=== PATIENT | male | born 1955 | race Caucasian/White ===

== ENCOUNTER 2016-10-26 16:21 | Emergency (ER) | payer OTHER ==
[~2016-10-26] VITALS: Ht 172.7 cm; Wt 80.7 kg
[~2016-10-26 16:21] MED LIST: ADVAIR 500/501 E1 INH; ALBUTEROL2 MG/5 ML INH; ALPRAZOLAM0.5 M3 PO; ASPIRIN CHILDRE81 MG PO; AUGMENTIN 875875 MG PO; B-1100 MG PO; CARAFATE1 GM/10 ML PO; CIPRO500 MG PO; CORDROL20 MG PO; COZAAR100 MG PO; DELTASONE5 MG PO; HYCODAN,HYDROME10 ML PO; HYCODAN/HYDROMET5 ML PO; MATZIM LA240 MG PO; MUCINEX DM 30 M1 TE1 PO; PREDNISONE10 MG PO; ROBITUSSIN-AC480 ML PO; SINGULAIR10 M1 PO; SINGULAIR4 MG PO; VICODIN 5/500 505 MG PO; VICODIN ES 7501 TA1 PO; ZITHROMAX Z PA250 MG PO; ZITHROMAX500 MG PO
[2016-10-26 16:38] VITALS: BP 174/94
[2016-10-26 17:09] LABS: BASO # 0.1 10*3/uL (0.0-0.1); BASO % 1.2 % (0.0-1.0); EOS # 1.4 10*3/uL (0.0-0.4); EOS % 16.7 % (1.0-4.0); HEMOGLOBIN 14.4 g/dl (14.0-18.0); LYMPH # 1.2 10*3/uL (1.3-4.4); LYMPH % 14.1 % (27.0-41.0); MEAN CELL VOLUME 97.9 fl (80.0-94.0); MEAN CORPUSCULAR HGB 32.8 pg (27.0-31.0); MEAN CORPUSCULAR HGB CONC 33.5 g/dl (33.0-37.0); MEAN PLATELET VOLUME 9.5 fl (9.6-12.3); MONO # 0.9 10*3/uL (0.1-1.0); MONO % 10.6 % (3.0-9.0); NEUT # 4.8 10*3/uL (2.3-7.9); PLATELET COUNT AUTOMATED 237 10*3/uL (130-400); RED BLOOD COUNT 4.39 10*6/uL (4.50-5.90); RED CELL DISTRI WIDTH 13.7 % (0-14.5); WHITE BLOOD COUNT 8.4 10*3/uL (4.8-10.8)
[2016-10-26 17:25] LABS: ALBUMIN 3.7 gm/dl (3.1-4.5); ALKALINE PHOSPHATASE 73 U/L (45-117); BILIRUBIN, TOTAL 0.6 mg/dl (0.2-1.0); BUN 16 mg/dl (7-24); CARBON DIOXIDE 27 mmol/L (21-32); CHLORIDE 105 mmol/L (98-107); EST GLOM FILT AFRICAN AMERICAN > 60 ml/min; GLUCOSE 98 mg/dL (65-99); POTASSIUM 3.8 mmol/L (3.5-5.1); SGOT/AST 23 IU/L (3-35); SGPT/ALT 28 U/L (12-78); SODIUM 140 mmol/L (136-145); TOTAL PROTEIN 6.8 gm/dL (6.4-8.2)
[2016-10-26] MEDS ORDERED: DUONEB 3 MG/3 ML3 M1 INH (17:42)
[2016-10-26] MEDS ORDERED: PREDNISONE20 M1 PO (17:42)
[2016-10-26] MEDS ORDERED: VIBRAMYCIN100 MG PO (17:42)
== END 2016-10-26 18:06 | disposition home or self-care (01) ==
LOC: ED 16:21
PROVIDERS: Emergency Medicine
DX: J44.1 Chronic obstructive pulmonary disease with (acute) exacerbation (principal); Z88.6 Allergy status to analgesic agent; Z79.82 Long term (current) use of aspirin

== ENCOUNTER 2017-02-26 09:23 | Inpatient (IN) | payer OTHER ==
[~2017-02-26] VITALS: Ht 173 cm; Wt 81.0 kg
--- NOTE | ~2017-02-26 | WRIGHTHP ---
[place], [place] PATIENT HISTORY AND PHYSICAL EXAM NAME: DALI EVANS UNIT #: [id number] ROOM: 515 DOCTOR: YU GALDAMEZ MD BIRTHDATE: [birth year] DOS: 02/26/2017 HISTORY OF PRESENT ILLNESS: The patient is 61-year-old, very well known to us. The patient states that he has had a low grade fever, aches and pains in his joints. On Saturday ____ noticed he had blood in his urine. He drank a lot of water. On Saturday it seemed to be clearing a little bit, but the fever and the chills persisted, so he decided to come into the Emergency Room. He denies having any chest pains, palpitations, does not have any abdominal pain. His breathing is fairly stable. He denies having any nausea, any emesis. PAST MEDICAL HISTORY: Significant for: 1. Panacinar emphysema with chronic respiratory failure. 2. Avascular necrosis, status post bilateral knee replacement, with chronic pain. 3. Benign hypertension. MEDICATIONS: That he is on are Xanax 0.5 daily, aspirin 81 daily, diltiazem 120 daily, Singulair 10 daily, simvastatin 5 daily, [place] 7.5 q.i.d. p.r.n. SOCIAL HISTORY: Nonsmoker, does drink 4-5 beers daily. PHYSICAL EXAMINATION: GENERAL: He is awake and alert and oriented. VITAL SIGNS: Blood pressure is 142/91, pulse of 86, respirations 20, T-max is 99.0. LUNGS: Diminished breath sounds. No wheezes, rales, rhonchi heard. HEART: Regular. ABDOMEN: Obese, soft, nontender. EXTREMITIES: Without any edema. ASSESSMENT AND PLAN: 1. The patient who presents with hematuria, fever, elevated white cell count. CT scan showing inflammatory changes in the perinephric fat, possible early pyelo. The patient is on IV antibiotics and IV fluids. Cultures were ordered and pending. 2. Benign hypertension, controlled. 3. Chronic obstructive pulmonary disease, panacinar emphysema without any evidence of exacerbation. [place], [place] PATIENT HISTORY AND PHYSICAL EXAM NAME: DALI EVANS UNIT #: [id number] ROOM: [facility] DOCTOR: YU GALDAMEZ MDDATE: [birth year] YU GALDAMEZ MD CM:HISPHYS:PATIENT HISTORY AND PHYSICAL EXAMINATION 1 0 YU GALDAMEZ MD 02/27/17921 interface
--- NOTE | ~2017-02-26 | DS ---
[place], [place] DISCHARGE SUMMARY [id number] UNIT #: [id number] ROOM: 515 DOCTOR: YU GALDAMEZ MD BIRTHDATE: [birth year] DOS: 02/28/2017 DIAGNOSES: 1. Acute pyelonephritis. 2. Urine culture with Escherichia coli. 3. Benign hypertension. 4. Sepsis, resolved, with negative blood cultures. 5. Chronic obstructive pulmonary disease. 6. Avascular necrosis of bilateral hips with bilateral hip replacement and chronic pain. MEDICATIONS: He is on home medications. New prescriptions which are aspirin 81 daily, diltiazem 120 daily, Singulair 10 daily, DuoNeb q. 4 hours, simvastatin 5 daily, Xanax 0.5 daily p.r.n., [place] 7.5 q.i.d. and the new prescription us Cipro 500 mg twice a day for 5 days. HOSPITAL COURSE: The patient is 61-year-old, comes in with complaints of blood in his urine and abdominal pain and chills and rigor. The patient was admitted with sepsis. He was tachycardic, hypotensive, with an elevated white blood cell count. The patient was placed on IV fluids, IV antibiotics. Urine culture and blood cultures were sent. Urine culture shows E. coli, which is sensitive to floxins. Blood culture preliminary is negative. The patient is stable, has not had any further complaints. Again, CT shows pyelonephritis. No other pathology was noted. Clinically, the patient has improved and the white cell count has normalized, so the plan is to discharge him to home to follow up as an outpatient. YU GALDAMEZ MD CM:DISCHARG 0728 1007 YU GALDAMEZ MD 02/28/17 1008 interface
--- NOTE | ~2017-02-26 | PR ---
[place], [place] PROGRESS NOTE [id number] UNIT #: [id number] ROOM: 515 DOCTOR: YU GALDAMEZ MD BIRTHDATE: [birth year] DOS: SUBJECTIVE: The patient states that he feels much better. He does not have any new complaints of chest pains or palpitations. His breathing is pretty much at its baseline. OBJECTIVE: VITAL SIGNS: Blood pressure is 120/87, pulse of 90, respirations 17, temperature 98.1. LUNGS: Diminished breath sounds. No wheezes heard. HEART: Regular. ABDOMEN: Obese, soft, nontender. EXTREMITIES: Without any edema. ASSESSMENT AND PLAN: 1. Acute pyelonephritis with sepsis. The patient's urine culture and blood cultures are pending. The patient's white cell count has normalized. He does not have any fevers, so the sepsis is resolving; however, we will wait for the complete culture results before we decide on discharge planning. 2. Benign hypertension, controlled. 3. Chronic obstructive pulmonary disease without any exacerbation. Continue breathing treatments. YU GALDAMEZ MD CM:PNTRANS 0717 1052 YU GALDAMEZ MD 02/28/17 1053 interface
[~2017-02-26 09:23] MED LIST changes: +CARTIA XT120 MG PO; +DUONEB 3 MG/3 ML3 M1 INH; -MATZIM LA240 MG PO; +PREDNISONE20 M1 PO; +VIBRAMYCIN100 MG PO
[2017-02-26 09:24] VITALS: BP 142/96
[2017-02-26 10:01] LABS: HEMATOCRIT 42.3 % (42.0-52.0); HEMOGLOBIN 14.4 g/dl (14.0-18.0); MEAN PLATELET VOLUME 9.3 fl (9.6-12.3); PLATELET COUNT AUTOMATED 248 10*3/uL (130-400); RED BLOOD COUNT 4.36 10*6/uL (4.50-5.90); RED CELL DISTRI WIDTH 13.4 % (0-14.5); WHITE BLOOD COUNT 20.1 10*3/uL (4.8-10.8)
[2017-02-26 10:13] LABS: ACT PARTIAL THROMBO TIME 28.7 SECONDS (19.5-32.1); INTERNATIONAL NORM RATIO 0.9 (2.0-3.5)
[2017-02-26 10:13] LABS: BILIRUBIN 2+ (NEGATIVE); BLOOD 3+ (NEGATIVE); CLARITY TURBID (CLEAR); COLOR RED (YELLOW); GLUCOSE TRACE (NEGATIVE); KETONE 1+ (NEGATIVE); NITRITE POSITIVE (NEGATIVE); PH 6.5 (5.0-9.0)
[2017-02-26 10:18] LABS: ALBUMIN 3.6 gm/dl (3.1-4.5); ALKALINE PHOSPHATASE 75 U/L (45-117); BUN 11 mg/dl (7-24); CHLORIDE 98 mmol/L (98-107); CREATININE 1.01 mg/dL (0.70-1.30); LIPASE 63 U/L (73-393); SGOT/AST 14 IU/L (3-35); SGPT/ALT 26 U/L (12-78); SODIUM 133 mmol/L (136-145); TOTAL PROTEIN 7.8 gm/dL (6.4-8.2)
[2017-02-26 10:19] VITALS: BP 140/82
[2017-02-26 10:20] LABS: PLATELET SUFFICIENCY NORMAL (NORMAL); TOTAL CELLS COUNTED 100 #CELLS
[2017-02-26 10:22] LABS: TROPONIN I < 0.015 ng/ml (<0.045)
[2017-02-26 10:33] LABS: LEUKO ESTERASE 3+ (NEGATIVE)
[2017-02-26 10:37] LABS: BACTERIA 2+; RBC TNTC rbc/hpf (0-2); WBC TNTC wbc/hpf (0-5)
[2017-02-26 11:01] VITALS: BP 134/86
--- NOTE | 2017-02-26 11:57 | NUR ---
PT HAD INC OF BM IN BED. DIARRHEA. PT REPORTS HE HAS BEEN HAVING THIS. PT CLEANED UP AND NEW, CLEAN DRY LINENS AND GOWN GIVEN.
[2017-02-26 12:00] VITALS: BP 101/56
--- NOTE | 2017-02-26 12:36 | NUR ---
A 61, admitted to , under the services of YU Bryant MD with a diagnosis of UTI, SEPSIS. Chief complaint is HEMATURIA. Patient arrived via bed from ER. Monitor applied. Initial assessment completed. Vital signs taken and recorded. YU BRYANT MD notified of admission to the unit. Orders received. See assessment for past medical history, medications and allergies. Patient and/or family oriented to unit. [facility] visitation policy reviewed. Clothing/patient valuable form completed. EFE KAPOOR
[2017-02-26] MEDS ORDERED: SIMVASTATIN5 MG PO (12:41)
[2017-02-26] MEDS ORDERED: XANAX0.5 MG PO (12:42)
[2017-02-26] MEDS ORDERED: NORCO 7.5-3251 EACH PO (12:42)
[2017-02-26 16:00] VITALS: BP 155/76
--- NOTE | 2017-02-26 19:30 | NUR ---
ASSUMED CARE OF PT AT THIS TIME, RESPS EASY AND NONLABORED WITH NO S/S OF DISTRESS CALL LIGHT WITH IN REACH
[2017-02-26 20:00] VITALS: BP 135/86
[2017-02-27] VITALS: BP 115/79
--- NOTE | 2017-02-27 07:30 | NUR ---
ASSUMED CARE OF PT AT THIS TIME, RESPS EASY AND NONLABORED WITH NO S/S OF DISTRESS CALL LIGHT WITH IN REACH
[2017-02-27 07:40] LABS: BASO # 0.1 10*3/uL (0.0-0.1); BASO % 0.5 % (0.0-1.0); EOS # 0.6 10*3/uL (0.0-0.4); EOS % 5.3 % (1.0-4.0); HEMATOCRIT 36.5 % (42.0-52.0); LYMPH # 0.7 10*3/uL (1.3-4.4); LYMPH % 6.4 % (27.0-41.0); MEAN CELL VOLUME 99.5 fl (80.0-94.0); MEAN CORPUSCULAR HGB CONC 33.2 g/dl (33.0-37.0); MEAN PLATELET VOLUME 9.9 fl (9.6-12.3); MONO # 1.2 10*3/uL (0.1-1.0); MONO % 11.8 % (3.0-9.0); NEUT # 7.9 10*3/uL (2.3-7.9); NEUT % 75.5 % (47.0-73.0); PLATELET COUNT AUTOMATED 216 10*3/uL (130-400); RED BLOOD COUNT 3.67 10*6/uL (4.50-5.90); RED CELL DISTRI WIDTH 13.3 % (0-14.5); WHITE BLOOD COUNT 10.5 10*3/uL (4.8-10.8)
[2017-02-27 07:51] LABS: HEMOGLOBIN 12.1 g/dl (14.0-18.0)
[2017-02-27 08:00] VITALS: BP 142/91
--- NOTE | 2017-02-27 08:00 | NUR ---
[employer] Booking Clerk in to talk to patient. Patient states lives at HOME with HIS . There are 0 steps in the home. Physician: DR GALDAMEZ Pharmacy: [facility] [place] Home health services: 1 Patient's level of ADLs: INDEPENDENT Patient has working utilities: YES DME: NONE Follow-up physician's appointment after d/c: PREFERS TO MAKE HIS OWN APPT Does patient want to access PORTAL?: Discharge plan HOME. WESTON LUDWIG
[2017-02-27 08:15] LABS: BUN 7 mg/dl (7-24); CHLORIDE 106 mmol/L (98-107); CREATININE 0.66 mg/dL (0.70-1.30); POTASSIUM 4.1 mmol/L (3.5-5.1); SODIUM 140 mmol/L (136-145)
[2017-02-27 12:00] VITALS: BP 140/72
[2017-02-27 16:00] VITALS: BP 136/74
[2017-02-27 20:00] VITALS: BP 137/83
[2017-02-28] VITALS: BP 120/87
--- NOTE | 2017-02-28 07:00 | NUR ---
PATIENT SLEPT T/O SHIFT WITH NO VOICED COMPLAINTS. RESTING QUIETLY IN BED, NO SXS OF DISTRESS. FLUIDS MAINTAINED PER ORDER. CALL LIGHT IS IN REACH.
[2017-02-28] MEDS ORDERED: CIPRO500 MG PO (07:26)
[2017-02-28 08:00] VITALS: BP 148/83
--- NOTE | 2017-02-28 08:38 | NUR ---
Discharge instructions reviewed with patient. Patient receptive and verbalizes understanding. Follow-up care arranged. Written instructions given to patient. PATIENT FINISHING LAST DOSE OF IV CIPRO PRIOR TO DISCHARGE HOME, SEE SHIFT ASSESSMENT AND VS'S. MECHE CUNHA
--- NOTE | 2017-02-28 10:16 | NUR ---
IV CIPRO COMPLETE; PATIENT PHONING FOR RIDE HOME.
--- NOTE | 2017-02-28 10:51 | NUR ---
PATIENT DISCHARGED TO FRONT LOBBY, AMBULATORY, FOR TRANSPORT HOME BY PRIVATE VEHICLE WITH FAMILY MEMBER.
--- NOTE | 2017-03-06 15:03 | NUR ---
LORA RECEIVED FROM [facility] ROOPA PLUNKETT ([id number] EXT. [id number]). ROOPA IS TRYING TO DO OUTREACH SERVICES BUT [employer]ING SNOT HAVE A GOOD PHONE NUMBER FOR PT. MARISA RETURNED CALL AND GAVE ROOPA UPDATED PHONE FOR PT.
== END 2017-02-28 10:49 | disposition home or self-care (01) | DRG 872 ==
LOC: ED 09:23 → 5E 11:58 → EDHOLD 11:58 → 5E 12:12
PROVIDERS: Emergency Medicine; ADMIT Internal Medicine
DX: A41.9 Sepsis, unspecified organism (principal); J96.10 Chronic respiratory failure, unspecified whether with hypoxia or hypercapnia; N10 Acute pyelonephritis; J43.1 Panlobular emphysema; B96.20 Unspecified Escherichia coli [E. coli] as the cause of diseases classified elsewhere; I10 Essential (primary) hypertension; G89.29 Other chronic pain; Z96.643 Presence of artificial hip joint, bilateral; Z79.82 Long term (current) use of aspirin; Z88.5 Allergy status to narcotic agent; Z87.01 Personal history of pneumonia (recurrent); Z82.49 Family history of ischemic heart disease and other diseases of the circulatory system; Z83.3 Family history of diabetes mellitus; Z80.9 Family history of malignant neoplasm, unspecified

== ENCOUNTER 2018-01-30 09:57 | Inpatient (IN) | payer OTHER ==
[~2018-01-30] VITALS: Ht 172.7 cm; Wt 85.5 kg
--- NOTE | ~2018-01-30 | PR ---
[place], [place] PROGRESS NOTE NAME: DALI EVANS UNIT #: [id number] ROOM: 401 DOCTOR: THEA URIOSTEGUI MD,JAMARI BIRTHDATE: [birth year] DOS: 02/02/2018 SUBJECTIVE: The patient was still noted with severe cough, which remains nonproductive with excessive chest congestion, shortness breath, wheezing was reported as seen with the chest tightness. OBJECTIVE: VITAL SIGNS: Normal temperature, respiratory rate 16, heart rate of 95, blood pressure 132/92, pulse ox saturation on room air 91% saturation at rest. HEENT: Head was atraumatic. Eyes nonicterus. NECK: Supple. CARDIOVASCULAR: S1, S2 audible. LUNGS: The patient noted diffuse expiratory wheezing without changes. ABDOMEN: Soft, nontender, bowel sounds present. EXTREMITIES: No acute edema. IMPRESSION: The patient with stable respiratory status noted at the present time with ongoing acute exacerbation of chronic obstructive pulmonary disease with bronchitis, coughing and wheezing. PLAN OF TREATMENT: Continue current dose of steroids, bronchodilators, oxygen supplementation. The patient was planned for a therapeutic bronchoscopy done tomorrow morning, n.p.o. past midnight status will be achieved today. JAMARI SIDHU MD CM:PNTRANS 1534 49 JAMARI URIOSTEGUI MD 02/02/181950 interface
--- NOTE | ~2018-01-30 | PROC NOTE ---
[place], [place] PROCEDURE NOTE NAME: DALI EVANS UNIT #: [id number] ROOM: 401 DOCTOR: THEA URIOSTEGUI MD,JAMARI BIRTHDATE: [birth year] DOS: 02/03/2018 PROCEDURE: Bronchoscopy. PREOPERATIVE DIAGNOSIS: The patient with persistent severe cough with wheezing ongoing maximum medical therapy. POSTOPERATIVE DIAGNOSIS: The patient with persistent severe cough with wheezing ongoing maximum medical therapy. Removal of large mucus plug patient endobronchial tree bilaterally. There were no endobronchial obstructive lesions. Findings of acute tracheobronchitis. PROCEDURE DESCRIPTION: Informed consent obtained for the patient. The patient brought to the OR and placed in supine position. Conscious sedation administered by the Anesthesia Department. After that, DVT from the bronchus one to the airway into laryngeal area. Epiglottis and vocal cords were seen. Vocal cord noted yellowish in color moving symmetrical movement. Bronchoscope advanced vocal cord and tracheal lumen noted with moderate amount of very thick mucus secretion with some purulent secretions suctioned out to the josseline level. Acute inflammatory changes in the tracheal mucosa was noted. The josseline noted sharp. The right upper, right middle, right lower, left upper, lingular lobe bronchi were all noted impacted with thick plugs of the mucosa. The patient with some purulent secretions, suctioned out with the help of normal saline wash and sent for cultures. The bronchial washing for the patient was taken and sent for all the cultures. Postoperative finding was discussed. The patient after recovered the effects of acute sedation. No other change in treatment at this time will be necessary. JAMARI SIDHU MD CM:PROCNOTE:PROCEDURE NOTE 1106 1730 JAMARI URIOSTEGUI MD
--- NOTE | ~2018-01-30 | PR ---
[place], [place] PROGRESS NOTE NAME: DALI EVANS UNIT #: [id number] ROOM: 401 DOCTOR: THEA URIOSTEGUI MD,JAMARI BIRTHDATE: [birth year] DOS: 02/05/2018 PULMONARY PROGRESS NOTE SUBJECTIVE: The patient noted much further improvement in the respiratory symptoms and almost complete resolution of cough, shortness breath and wheezing was also resolving. Denies symptoms of chest pain. Slept well last night. OBJECTIVE: VITAL SIGNS: Normal temperature, respiratory rate 16, heart rate of 82, blood pressure 150/94. Pulse oxygen saturation recorded on room air as 92% saturation. HEENT: Head was atraumatic. Eyes nonicterus. NECK: Supple. CARDIOVASCULAR: S1 and S2 audible. LUNGS: Without any wheezing or crackles at the present time. Breath sounds are noted mildly decreased bilaterally. ABDOMEN: Soft, nontender. Bowel sounds present. EXTREMITIES: No acute edema. IMPRESSION: Resolution of acute tracheobronchitis, markedly symptom-free after bronchoscopy. The culture of bronchial washing final results noted normal jose ramon. PLAN OF MANAGEMENT: No changes in the plan of care. Continuation of current therapy at this time without any changes. All other supportive plan of treatment and care. Discharge planning per primary care physician. JAMARI SIDHU MD CM:PNTRANS 1249 1515 JAMARI URIOSTEGUI MD 02/05/18 1515 interface
--- NOTE | ~2018-01-30 | PR ---
[place], [place] PROGRESS NOTE NAME: DALI EVANS UNIT #: [id number] ROOM: 401 DOCTOR: CARLOS DICKSON MD BIRTHDATE: [birth year] DOS: 02/01/2018 SUBJECTIVE: The patient's breathing has slightly improved, but he is still congested in his chest. PHYSICAL EXAMINATION: VITAL SIGNS: Blood pressure 156/86, heart rate of 89 beats per minute, breathing 20 times per minute, temperature 98 degrees Fahrenheit. GENERAL APPEARANCE: The patient is alert and oriented x 3, in no visible distress. HEENT AND NECK: Exam within normal limits. CARDIOVASCULAR SYSTEM: Heart rate is regular in rate and rhythm. S1 and S2 normally audible. LUNGS: Clear to auscultation. Lungs show expiratory wheezing all over and rhonchi. ABDOMEN: Soft, nontender. No obvious organomegaly. Bowel sounds are present. EXTREMITIES: Without significant cyanosis or edema. IMPRESSION: 1. Acute exacerbation of severe underlying chronic obstructive pulmonary disease with acute over chronic respiratory failure, being treated with corticosteroids, bronchodilators, oxygen and antibiotics and sputum cultures are pending. The patient has been scheduled for a bronchoscopy by Dr. Umana on Saturday. 2. Benign essential hypertension, treated and controlled. 3. History of bronchial asthma. 4. History of chronic pains controlled and treated and the patient functions are better with Vicodin. CARLOS DICKSON MD CM:PNTRANS 1814 5 CARLOS DICKSON MD 02/02/18 07 interface
--- NOTE | ~2018-01-30 | PR ---
[place], [place] PROGRESS NOTE NAME: DALI EVANS UNIT #: [id number] ROOM: 401 DOCTOR: CARLOS DICKSON MD BIRTHDATE: [birth year] DOS: SUBJECTIVE: The patient is breathing better after bronchoscopy and says Dr. Umana will allow him to leave tomorrow. PHYSICAL EXAMINATION: GENERAL APPEARANCE: The patient is alert and oriented x 3, in no visible distress. VITAL SIGNS: Blood pressure 152/87, heart rate of 96 beats per minute, afebrile, breathing 20 times per minute. HEENT AND NECK: Exam within normal limits. CARDIOVASCULAR SYSTEM: Heart rate is regular in rate and rhythm. S1 and S2 normally audible. LUNGS: Decreased breath sounds. Wheezing has improved on lung auscultation. ABDOMEN: Soft, nontender. No obvious organomegaly. Bowel sounds are present. EXTREMITIES: Without significant cyanosis or edema. IMPRESSION: 1. The patient with acute exacerbation of severe underlying chronic obstructive pulmonary disease, feeling improved after bronchoscopy. The wheezing has improved. Plan to discharge the patient in the morning if he continues to feel better. 2. Benign essential hypertension, treated and controlled, slightly elevated blood pressures. 3. History of bronchial asthma. 4. Chronic pain syndrome treated with Vicodin. CARLOS DICKSON MD CM:PNTRANS 57 1 CARLOS DICKSON MD 02/05/18111 interface
--- NOTE | ~2018-01-30 | EKG ---
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
--- NOTE | ~2018-01-30 | EKG ---
[place], [place] ELECTROCARDIOGRAM REPORT NAME: DALI EVANS UNIT #: [id number] ROOM: 401 DOCTOR: WALLY DRAFT REPORT BIRTHDATE: [birth year] [facility] Test Date: 2018-02-01 Test Time: 10:20:01 Pat Name: DALI EVANS Department: Room: 401 1 Gender: M Vamp Marker: Consuelo Foss : 1955 Requested By: JAMARI URIOSTEGUI Order Number: [id number] Reading MD: Jamari Umana MD Measurements Intervals [place] Rate: 91 P: 71 [place]: 155 QRS: 18 QRSD: 70 T: 29 QT: 336 QTc: 414 Interpretive Statements Sinus rhythm Atrial premature complex Borderline ST depression, anterolateral leads Compared to ECG 01/30/2018 10:27:54 Atrial premature complex(es) now present Electronically Signed On 02-04-2018 8:57:23 PDT by Jamari Umana MD CM:EKGRPT:ELECTROCARDIOGRAM REPORT 1020 0857 JAMARI LO DRAFT REPORT JAMARI URIOSTEGUI MD
--- NOTE | ~2018-01-30 | PR ---
[place], [place] PROGRESS NOTE [id number] #: [id number] ROOM: 401 DOCTOR: THEA URIOSTEGUI MD,JAMARI BIRTHDATE: [birth year] DOS: 02/04/2018 SUBJECTIVE: The patient has been noted with reduction of the cough and wheezing after therapeutic bronchoscopy done yesterday. Denies symptoms of chest pain. The coughing has been subsiding, but not completely resolved. Shortness of breath has improved. Wheezing was decreased. OBJECTIVE: VITAL SIGNS: Normal temperature, respiratory rate 20, heart rate 99, and blood pressure 149/82. Pulse oxygen saturation, 90% saturation noted on room air. HEENT: Chronic obesity. NECK: Supple. CARDIOVASCULAR: S1, S2 audible. LUNGS: Noted reduction in the wheezing. Occasional wheezing noted. There were no crackles. ABDOMEN: Soft, obese, and nontender. EXTREMITIES: No acute edema. LABORATORY DATA: Culture of the bronchial washing of the patient was noted with normal jose ramon initially. IMPRESSION: The patient who has been currently noted with acute exacerbation of chronic obstructive pulmonary disease, acute tracheobronchitis, reduction of the cough, wheezing and other symptoms post-bronchoscopy. PLAN OF TREATMENT: No changes in the plan of management at this time will be needed. Usual care. Other additional treatment changes will be done for the patient based on the progression of the illness. The patient does not wish to be discharged today and would like to wait until tomorrow. JAMARI SIDHU MD CM:PNTRANS 1157 1533 JAMARI URIOSTEGUI MD 02/04/18 1534 interface
--- NOTE | ~2018-01-30 | DS ---
[place], [place] DISCHARGE SUMMARY NAME: DALI EVANS UNIT #: [id number] ROOM: 401 DOCTOR: CARLOS DICKSON MD BIRTHDATE: [birth year] DOS: 02/05/2018 DISCHARGE DIAGNOSES: 1. Acute exacerbation of chronic obstructive pulmonary disease with acute over chronic respiratory failure. 2. The patient is status post bronchoscopy. 3. Benign essential hypertension. 4. Bronchial asthma. 5. Chronic pain syndrome. 6. Advanced chronic obstructive pulmonary disease. 7. Bilateral hip replacement. 8. Hyperlipidemia. HOSPITAL COURSE: The patient with advanced COPD, presented with acute exacerbation of COPD with acute over chronic respiratory failure and was treated with antibiotics, corticosteroids, on oxygen, and finally taken for a bronchoscopy after which his breathing improved significantly. The wheezing has resolved and he is breathing much better. The patient had severe dyspnea on exertion, which has also improved. The patient will be discharged to home today on antibiotics and bronchodilators and follow up with his PCP, Dr. Salvador within a week. Benign essential hypertension treated and controlled. Sputum culture results were negative. Blood cultures were negative. DISCHARGE MANAGEMENT: Augmentin 875 mg twice a day for a week, aspirin 81 mg a day, Medrol Dosepak, Cardizem-CD 120 mg a day, Vicodin p.r.n., follow up at the office with Dr. Salvador within a week. CARLOS DICKSON MD CM:CHAY 1106 20 CARLOS DICKSON MD 02/05/18 1121 interface
--- NOTE | ~2018-01-30 | PR ---
[place], [place] PROGRESS NOTE NAME: DALI EVANS UNIT #: [id number] ROOM: 401 DOCTOR: JAMARI SHEPHERD MD BIRTHDATE: [birth year] DOS: 02/03/2018 SUBJECTIVE: The patient remains in the hospital. The patient noted persistent severe coughing, wheezing, and shortness of breath unchanged over the last 48 hours. He has not been noted symptoms of headache or diplopia. Denies symptoms of nausea, vomiting, diarrhea, abdominal pain, hematemesis, melena, or hematochezia. Symptoms edema or pain of the lower extremity. The culture of the sputum reported normal, bacterial jose ramon. The patient is currently n.p.o. possibly bronchoscopy done today. Remaining review of the patient is noted all negative. OBJECTIVE: VITAL SIGNS: Normal temperature, respiratory rate 18, heart rate of 82, blood pressure 151/90 earlier. The pulse oxygen saturation patient on room air 96% saturation. HEENT: Head was atraumatic. Eyes nonicterus. NECK: Supple. CARDIOVASCULAR: S1, S2 audible. LUNGS: The patient was noted with expiratory wheezing remains persistent moderately. ABDOMEN: Soft and obese. EXTREMITIES: Without edema. MUSCULOSKELETAL: No acute deformities. SKIN: Visible skin lesions or rashes and Cranial nerves 2-12 intact. LABORATORY DATA: Culture of the sputum for the patient noted normal jose ramon. IMPRESSION: 1. Ongoing severe exacerbation of chronic obstructive with severe nonproductive cough and other symptoms, not resolving with current maximal medical therapy. 2. The patient with chronic moderate obesity. PLAN OF MANAGEMENT: The patient will be continued on current plan of management previously with all the noninvasive therapy and treatment plan of care. Proceed with fiberoptic bronchoscopy as planned. Any treatment change the patient necessary after bronchoscopy will be ordered accordingly. Usual care, other therapies. [place], [place] PROGRESS NOTE NAME: DALI EVANS UNIT #: [id number] ROOM: 401 DOCTOR: JAMARI SHEPHERD MD BIRTHDATE: [birth year] JAMARI SIDHU MD CM:PNTRANS 1104 1551 JAMARI URIOSTEGUI MD 02/03/18 1552 interface
--- NOTE | ~2018-01-30 | PR ---
[place], [place] PROGRESS NOTE NAME: DALI EVANS UNIT #: [id number] ROOM: 401 DOCTOR: CARLOS DICKSON MD BIRTHDATE: [birth year] DOS: 02/03/2018 SUBJECTIVE: The patient's breathing is improving slowly and he is going for bronchoscopy today by Dr. Umana. OBJECTIVE: VITAL SIGNS: Blood pressure 151/85, heart rate 100 beats per minute, breathing 20 times per minute, temperature 98.1 degrees Fahrenheit. GENERAL APPEARANCE: The patient is alert and oriented x 3, in no visible distress. HEENT AND NECK: Exam within normal limits. CARDIOVASCULAR SYSTEM: Heart rate is regular in rate and rhythm. S1 and S2 normally audible. LUNGS: Decreased breath sounds and expiratory wheezing all over. ABDOMEN: Soft, nontender. No obvious organomegaly. Bowel sounds are present. EXTREMITIES: Without significant cyanosis or edema. IMPRESSION: 1. The patient with acute exacerbation of severe underlying chronic obstructive pulmonary disease with acute over chronic respiratory failure, going for bronchoscopy today. The patient has dyspnea with slightest exertion. 2. Benign essential hypertension, treated and controlled. 3. History of bronchial asthma. 4. History of chronic pain, controlled and treated with Vicodin. CARLOS DICKSON MD CM:PNTRANS 1331 CARLOS DICKSON MD 02/03/18 2305 interface
--- NOTE | ~2018-01-30 | WRIGHTHP ---
[place], [place] PATIENT HISTORY AND PHYSICAL EXAM NAME: DALI EAVNS [facility] #: [id number] UNIT #: [id number] ROOM: 401 DOCTOR: CARLOS DICKSON MD BIRTHDATE: [birth year] DOS: 01/30/2018 HISTORY OF PRESENT ILLNESS: The patient is a 62-year-old gentleman with a past medical history of: 1. Advanced COPD. 2. Benign essential hypertension. 3. Bilateral hip replacement. 4. Mixed hyperlipidemia. The patient presented to the Emergency Department with worsening of shortness of breath, cough, purulent sputum and wheezing. The patient was diagnosed as having acute exacerbation of COPD and recommended admission and further management. After admission, the patient is still short of breath and has significant cough. No complaints of chest pain, dizziness, fainting episodes. No other GI or urinary symptoms. ALLERGIES: Known allergies to MORPHINE. REVIEW OF SYSTEMS: RESPIRATORY: Chronic shortness of breath and cough. GASTROINTESTINAL: No nausea, vomiting, diarrhea or constipation. CARDIOVASCULAR: No chest pains or palpitations. PHYSICAL EXAMINATION: GENERAL: Alert and oriented x 3, somewhat short of breath.in no distress. VITAL SIGNS: Blood pressure 146/84, afebrile, heart rate of 107 beats per minute, temperature 98 degrees. HEENT AND NECK: Extraocular movements are intact. Sclerae are anicteric. Oral mucosa is moist and clean. No obvious facial weakness. Neck is supple without any lymphadenopathy. No thyromegaly. No JVD. No carotid arterial bruits. LUNGS: Decreased breath sounds all over, some expiratory wheezing and rhonchi which is generalized to the lungs. CARDIOVASCULAR SYSTEM: Heart rate is regular in rate and rhythm. S1 and S2 normally audible. No significant murmur or any other abnormal cardiac sounds. ABDOMEN: Soft, nontender. No obvious organomegaly. Bowel sounds are present. No obvious herniation. EXTREMITIES: Without significant cyanosis or edema. Warm to touch. CENTRAL NERVOUS SYSTEM: Alert and oriented x 3. Cranial nerves II-XII are intact. Speech is normal. The patient is able to move all extremities. Normal muscle strength. Deep tendon reflexes are equal on both sides. Plantars were downgoing. LABORATORY DATA: The patient's chest x-ray showed just COPD no infiltrates. Normal CBC, serum electrolytes. IMPRESSION AND PLAN: 1. Acute exacerbation of severe underlying chronic obstructive pulmonary disease with acute over chronic respiratory failure, to be treated with bronchodilators, oxygen, corticosteroids and get a sputum culture. I will also consult Dr. Umana who may consider doing a bronchoscopy to clear his airways [place], [place] PATIENT HISTORY AND PHYSICAL EXAM NAME: DALI EVANS UNIT #: [id number] ROOM: [facility] DOCTOR: CARLOS DICKSON MD BIRTHDATE: [birth year] because of extreme chronic lung disease with acute over chronic respiratory failure. 2. Benign essential hypertension, treated and controlled. The patient continued on diltiazem. DICTATION ENDS HERE CARLOS DICKSON MD CM:HISPHYS:PATIENT HISTORY AND PHYSICAL EXAMINATION [phone] CARLOS DICKSON MD 02/20/18 1047 interface
--- NOTE | ~2018-01-30 | CON ---
[place], [place] REPORT OF CONSULTATION [id number] #: [id number] ROOM: 401 DOCTOR: THEA URIOSTEGUI MDJAMARI BIRTHDATE: [birth year] DOS: 02/01/2018 PULMONARY CONSULTATION EVALUATION AND MANAGEMENT REASON FOR CONSULTATION: Consultation done for assessment of COPD, nonresolving respiratory symptoms. HISTORY OF PRESENT ILLNESS: This is a 62-year-old white male who has been known with history of advanced COPD. The patient has now been seen in my office for several years. He has been seen and managed by the primary care physician usually for the COPD. The patient came to the hospital. The patient has been noted with ongoing symptoms for about a month or so and been treated as an outpatient with 2 courses of antibiotics and steroids and did not respond to the treatment. He has been using nebulized bronchodilators frequently. The patient recommended hospitalization and currently managed patient for acute exacerbation of COPD reporting symptoms of severe cough. The patient has been noted intermittent nonproductive with shortness of breath occurring with uypy-cl-vazygntd exertion and persistent expiratory wheezing. There were no symptoms of chest pain, chest tightness was reported. REVIEW OF SYSTEMS: Remaining systems reviewed. CONSTITUTIONAL: Fatigue, or tiredness noted without any symptoms of fever or chills. EYES: Denies any burning, redness, or tenderness. EARS, NOSE, THROAT SYMPTOMS: Denies sore throat, hoarseness, otalgia, postnasal drainage or epistaxis. CARDIOVASCULAR: Denies anginal pain, edema, pain of the lower extremities. GASTROINTESTINAL: Dysphagia, nausea, vomiting, diarrhea, abdominal pain, hematemesis, melena, or hematochezia. GENITOURINARY: No dysuria, suprapubic pain, hematuria. MUSCULOSKELETAL: No acute joint pain, redness, or tenderness. SKIN: Denies lesions or rashes tenderness. CENTRAL NERVOUS SYSTEMS: no dizziness, headache, diplopia, syncopal episode. Remaining systems reviewed. They were noted all negative. PAST MEDICAL HISTORY: 1. Essential hypertension. 2. Severe chronic obstructive pulmonary disease. 3. History reported for bronchial asthma. The exact severity at this time was unknown to me. 4. History of rheumatic fever as a child. 5. Past history of pneumonia. PAST SURGICAL HISTORY: Noted for this patient on mechanical ventilation previously for the respiratory failure management. PAST SURGICAL 1. Bilateral hip replacement. 2. Inguinal hernia repair. 3. Therapeutic bronchoscopy that was done in 2002. [place], [place] REPORT OF CONSULTATION NAME: DALI EVANS UNIT #: [id number] ROOM: 401 DOCTOR: THEA URIOSTEGUI MD,JAMARI BIRTHDATE: [birth year] SOCIAL HISTORY: The patient is , has 2 children, lives at home. Tobacco use reported as a teenager 1.5 pack of cigarettes per day, discontinued approximately 20 years ago as per patient. FAMILY HISTORY: The patient's father at age of 5252 years old from unknown medical illnesses. Mother at 80 years of complication of congestive heart failure. CURRENT MEDICATIONS: Administered were noted, use of Cardizem, IV Solu-Medrol, DuoNeb, Rocephin, and aspirin. DRUG ALLERGIES: NOTED ALLERGY TO MORPHINE. PHYSICAL EXAMINATION: GENERAL: A 62-year-old male who has been noted currently awake and alert without acute distress. Height of 5 feet 8 inches, weight 280 pounds, BMI 28. VITAL SIGNS: Normal temperature, respirations 18-20, heart rate 96-114, blood pressure 143/98, 162/96. The pulse ox saturation on room air was 91% saturation. HEENT: Head was atraumatic, mild to moderate obesity. NECK: Supple. CARDIOVASCULAR: S1, S2 audible. LUNGS: Generally decreased breath sounds with diffuse expiratory wheezing. There were no crackles. ABDOMEN: Soft. Moderate obesity. Bowel sounds present without any tenderness. EXTREMITIES: The patient noted without any acute edema, clubbing or cyanosis. MUSCULOSKELETAL: Without acute deformities. CENTRAL NERVOUS SYSTEM: Cranial nerves 2-12 intact. VISIBLE SKIN: No lesions or rashes. LABORATORY DATA: On 01/30/2018, CBC for the patient was essentially noted as eosinophils are 9.5%, otherwise normal CBC. Lactic acid 1.8. The, PT, PTT were noted as normal. CMP of the patient noted with a normal BUN and creatinine. The blood culture was noted without any bacterial growth from 01/30/2018, the culture of the sputum preliminary was pending from this morning. Gram stain, moderate white blood cells, epithelial cells, moderate gram-positive cocci in pairs and clusters. Chest x-ray 1 view does not show any acute pulmonary infiltration, hyperinflation of the lung was noted. PT/PTT 01/30/2018 was normal. IMPRESSION: 1. The patient has been currently admitted to the hospital noted with progressive COPD and bronchial asthma combination, acute exacerbation, not responding to treatment. 2. 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 3. Failure to respond to treatment for the patient at home with the previous treatment, corticosteroids and antibiotic suggestive of mucous impaction major airway patient and/or resistant infection combination can be excluded. [place], [place] REPORT OF CONSULTATION NAME: DALI EVANS UNIT #: [id number] ROOM: 401 DOCTOR: THEA URIOSTEGUI MD,JAMARI BIRTHDATE: [birth year] 4. The patient with moderate obesity as well. 5. Past history of heavy nicotine use. PLAN OF MANAGEMENT: Continue current dose of Solu-Medrol, bronchodilators as ordered q.4 hours. Sputum for Gram stain culture was ordered with pending culture results. Therapeutic bronchoscopy was suggested with the patient. Risk and the benefits of the procedure and he is agreeable for that. In the meantime, other plan of care, therapy to be continued as well with usual treatment, other plan of management and care plan has already been made by Dr. Roe. Thanks for allowing me to participate in the care of this patient. JAMARI SIDHU MD CM:CONSTR:REPORT OF CONSULTATION 1358 02/01/18 2344 interface
[~2018-01-30 09:57] MED LIST changes: +NORCO 7.5-3251 EACH PO; +SIMVASTATIN5 MG PO; +XANAX0.5 MG PO
[2018-01-30 10:01] VITALS: BP 148/89
[2018-01-30 10:26] LABS: BASO # 0.1 10*3/uL (0.0-0.1); BASO % 1.2 % (0.0-1.0); EOS # 0.7 10*3/uL (0.0-0.4); EOS % 9.5 % (1.0-4.0); HEMATOCRIT 46.6 % (42.0-52.0); HEMOGLOBIN 15.4 g/dl (14.0-18.0); LYMPH # 1.7 10*3/uL (1.3-4.4); LYMPH % 21.9 % (27.0-41.0); MEAN CELL VOLUME 96.1 fl (80.0-94.0); MEAN CORPUSCULAR HGB 31.8 pg (27.0-31.0); MEAN PLATELET VOLUME 9.3 fl (9.6-12.3); MONO # 1.2 10*3/uL (0.1-1.0); NEUT % 51.4 % (47.0-73.0); PLATELET COUNT AUTOMATED 296 10*3/uL (130-400); RED BLOOD COUNT 4.85 10*6/uL (4.50-5.90); RED CELL DISTRI WIDTH 12.6 % (0-14.5); WHITE BLOOD COUNT 7.8 10*3/uL (4.8-10.8)
[2018-01-30 10:34] LABS: ACT PARTIAL THROMBO TIME 22.6 SECONDS (20.8-31.5); INTERNATIONAL NORM RATIO 0.9 (2.0-3.5)
[2018-01-30 10:45] LABS: ALKALINE PHOSPHATASE 70 U/L (45-117); BUN 16 mg/dl (7-24); CHLORIDE 108 mmol/L (98-107); CREATININE 1.06 mg/dL (0.70-1.30); LIPASE 81 U/L (73-393); POTASSIUM 3.9 mmol/L (3.5-5.1); SGOT/AST 15 IU/L (3-35); SGPT/ALT 23 U/L (12-78); SODIUM 141 mmol/L (136-145); TOTAL PROTEIN 7.1 gm/dL (6.4-8.2)
[2018-01-30 10:46] LABS: TROPONIN I < 0.015 ng/ml (<0.045)
[2018-01-30 11:49] VITALS: BP 150/98
[2018-01-30] MEDS ORDERED: SOLU-MEDRO40 MG/1 ML IV (12:56)
[2018-01-30 16:00] VITALS: BP 188/64
[2018-01-30 20:00] VITALS: BP 163/89
[2018-01-31] VITALS: BP 154/84
[2018-01-31 08:00] VITALS: BP 151/93
[2018-01-31 12:00] VITALS: BP 155/92; BP 161/93
[2018-01-31 16:00] VITALS: BP 146/84
[2018-01-31 20:00] VITALS: BP 144/79
[2018-02-01] VITALS: BP 162/96
[2018-02-01 08:00] VITALS: BP 142/75; BP 143/98
[2018-02-01 12:00] VITALS: BP 150/85
[2018-02-01 16:00] VITALS: BP 156/86
[2018-02-01 20:00] VITALS: BP 140/80
[2018-02-02] VITALS: BP 153/88
[2018-02-02 08:00] VITALS: BP 136/84
[2018-02-02 12:00] VITALS: BP 132/92
[2018-02-02 16:00] VITALS: BP 141/82
[2018-02-02 20:00] VITALS: BP 152/98
[2018-02-03] VITALS (9 sets, daily range): BP systolic 135–161; BP diastolic 85–101
[2018-02-04] VITALS: BP 147/87
[2018-02-04 08:00] VITALS: BP 150/90
[2018-02-04 11:31] VITALS: BP 149/82
[2018-02-04 16:00] VITALS: BP 152/87
[2018-02-04 16:10] LABS: ACID FAST SPEC PROCESSING Concentration (.)
[2018-02-04 20:00] VITALS: BP 141/94
[2018-02-05] VITALS: BP 130/76
[2018-02-05 08:00] VITALS: BP 150/94
[2018-02-05] MEDS ORDERED: AUGMENTIN 875-875 MG PO (11:00)
[2018-02-05] MEDS ORDERED: MEDROL DOSEPAK4 MG PO (11:00)
[2018-03-08] MEDS ORDERED: MUCUS RELIEF400 MG PO (13:03)
[2018-03-08] MEDS ORDERED: LOSARTAN POTAS100 M1 PO (13:29)
[2018-03-10] MEDS ORDERED: MEDROL DOSEPAK4 MG PO (10:16)
[2018-03-10] MEDS ORDERED: AUGMENTIN 875-875 MG PO (10:16)
[2018-03-14 11:04] LABS: ORGANISM ID, MOLD Final report (.); RESULT 1 Final Identification (.)
== END 2018-02-05 11:30 | disposition home or self-care (01) | DRG 189 ==
LOC: ED 09:57 → 4E 11:42 → EDHOLD 11:42 → 4E 12:19
PROVIDERS: Emergency Medicine; Internal Medicine Critical Care Medicine
PROC: 0BC58ZZ Extirpation of Matter from Right Middle Lobe Bronchus, Via Natural or Artificial Opening Endoscopic (ICD-10-PCS; principal; 2018-02-03)
PROC: 0BC68ZZ Extirpation of Matter from Right Lower Lobe Bronchus, Via Natural or Artificial Opening Endoscopic (ICD-10-PCS; principal; 2018-02-03)
PROC: 0BC48ZZ Extirpation of Matter from Right Upper Lobe Bronchus, Via Natural or Artificial Opening Endoscopic (ICD-10-PCS; principal; 2018-02-03)
PROC: 0BC18ZZ Extirpation of Matter from Trachea, Via Natural or Artificial Opening Endoscopic (ICD-10-PCS; principal; 2018-02-03)
PROC: 0BC38ZZ Extirpation of Matter from Right Main Bronchus, Via Natural or Artificial Opening Endoscopic (ICD-10-PCS; principal; 2018-02-03)
PROC: 0BC78ZZ Extirpation of Matter from Left Main Bronchus, Via Natural or Artificial Opening Endoscopic (ICD-10-PCS; principal; 2018-02-03)
PROC: 0BCB8ZZ Extirpation of Matter from Left Lower Lobe Bronchus, Via Natural or Artificial Opening Endoscopic (ICD-10-PCS; principal; 2018-02-03)
PROC: 0BC88ZZ Extirpation of Matter from Left Upper Lobe Bronchus, Via Natural or Artificial Opening Endoscopic (ICD-10-PCS; principal; 2018-02-03)
PROC: 0BC98ZZ Extirpation of Matter from Lingula Bronchus, Via Natural or Artificial Opening Endoscopic (ICD-10-PCS; principal; 2018-02-03)
DX: J96.20 Acute and chronic respiratory failure, unspecified whether with hypoxia or hypercapnia (principal); J44.1 Chronic obstructive pulmonary disease with (acute) exacerbation; T17.590A Other foreign object in bronchus causing asphyxiation, initial encounter; T17.490A Other foreign object in trachea causing asphyxiation, initial encounter; J44.0 Chronic obstructive pulmonary disease with (acute) lower respiratory infection; Z96.643 Presence of artificial hip joint, bilateral; E78.2 Mixed hyperlipidemia; J20.9 Acute bronchitis, unspecified; G89.4 Chronic pain syndrome; E66.01 Morbid (severe) obesity due to excess calories; E78.5 Hyperlipidemia, unspecified; X58.XXXA Exposure to other specified factors, initial encounter; Y93.89 Activity, other specified; Y92.89 Other specified places as the place of occurrence of the external cause; Y99.8 Other external cause status; Z68.28 Body mass index [BMI] 28.0-28.9, adult

== ENCOUNTER 2018-03-29 11:43 | Inpatient (IN) | payer OTHER ==
[~2018-03-29] VITALS: Ht 172.7 cm; Wt 77.2 kg
--- NOTE | ~2018-03-29 | PR ---
[place], [place] PROGRESS NOTE [id number] #: [id number] ROOM: 532 DOCTOR: YU GALDAMEZ MD BIRTHDATE: [birth year] DOS: SUBJECTIVE: The patient is doing better, but still pretty wheezy, and unable to cough up any mucus. OBJECTIVE: VITAL SIGNS: Blood pressure is 144/80, pulse of 84, respirations 16, and temperature 98.1. LUNGS: Diminished breath sounds, scattered wheezes, and rhonchi still heard. HEART: Regular. ABDOMEN: Obese, soft. EXTREMITIES: Without any edema. LABORATORY DATA: Echocardiogram showed normal LV function 65% with mild concentric LVH, no major valvular pathology was noted. Blood culture shows no bacterial growth. ASSESSMENT AND PLAN: 1. Acute exacerbation of chronic obstructive pulmonary disease, continues to have bronchospasm. We will increase the dose of the steroids; otherwise, he is on maximal treatment plan. The possibility is that he may have underlying MRSA, which could be causing his continued bronchospasm, cough, and pneumonia. 2. New areas of pneumonitis. We will repeat CT of the chest to see whether there is any clearing. 3. Benign hypertension, controlled. Tachycardia, improved after the increase in Cardizem. 4. Moderate to large sliding hernia without any signs of regurg. YU GALDAMEZ MD CM:PNTRANS [id number] YU GALDAMEZ MD 04/22/18 0854 interface
--- NOTE | ~2018-03-29 | PR ---
[place], [place] PROGRESS NOTE NAME: DALI EVANS UNIT #: [id number] ROOM: 532 DOCTOR: CARLOS DICKSON MD BIRTHDATE: [birth year] DOS: 04/05/2018 SUBJECTIVE: The patient finally breathing slightly better today. OBJECTIVE: VITAL SIGNS: Blood pressure 142/84, breathing 20 times per minute, afebrile, heart rate of 93 beats per minute. GENERAL APPEARANCE: The patient is alert and oriented x 3, in no visible distress. HEENT AND NECK: Exam within normal limits. CARDIOVASCULAR SYSTEM: Heart rate is regular in rate and rhythm. S1 and S2 normally audible. LUNGS: Decreased breath sounds all over and slight expiratory wheezing. ABDOMEN: Soft, nontender. No obvious organomegaly. Bowel sounds are present. EXTREMITIES: Without significant cyanosis or edema. IMPRESSION: 1. The patient with advanced endstage chronic obstructive pulmonary disease with exacerbation and acute over chronic respiratory failure with slight improvement in breathing and I am hoping I will be able to discharge the patient to home tomorrow. The patient is being treated with corticosteroids, oxygen, nebulizer treatments and antibiotic. 2. Benign essential hypertension with improved tachycardia with Cardizem. Blood pressures are controlled. 3. Bilateral lower lung pneumonia, improved and cleared with antibiotics. 4. Adult failure to thrive, generalized weakness. The patient is ambulating and has significant dyspnea with slightest exertion. CARLOS DICKSON MD CM:PNTRANS 23 [phone] CARLOS DICKSON MD 04/06/1828 interface
--- NOTE | ~2018-03-29 | WRIGHTHP ---
[place], [place] PATIENT HISTORY AND PHYSICAL EXAM NAME: DALI EVANS UNIT #: [id number] ROOM: 532 DOCTOR: YU GALDAMEZ MD BIRTHDATE: [birth year] DOS: 03/30/2018 HISTORY OF PRESENT ILLNESS: The patient is very well known to us. He was admitted to the hospital twice in the last one month, comes in with complaints of difficulty breathing and cough. Denied having any chest pains or palpitations, does not have any fever or chills, does not have any abdominal nausea, emesis. He underwent a bronchoscopy with bronchial lavage done exactly a month ago. At that time, sputum cultures did not grow anything. Since then, he went home and he continues to be sick. PAST MEDICAL HISTORY: Significant for; 1. COPD. 2. Benign hypertension. 3. Rheumatoid arthritis. 4. Bilateral hip replacement. 5. Avascular necrosis. 6. History of inguinal hernia repair. 7. History of diverticulitis. MEDICATIONS: He is on are aspirin 81, diltiazem 120, [place] 7.5, losartan 100, montelukast 10, simvastatin 5. SOCIAL HISTORY: Nonsmoker. Does drink 2-3 beers every day. PHYSICAL EXAMINATION: GENERAL: He is awake and alert. VITAL SIGNS: Blood pressure is 151/94, pulse of 103, respirations 20, temperature 97.8. LUNGS: Diminished breath sounds, scattered wheezes and rhonchi. HEART: Regular. ABDOMEN: Obese, soft, nontender. EXTREMITIES: Without any edema. ASSESSMENT AND PLAN: 1. Acute exacerbation of chronic obstructive pulmonary disease, on IV steroids. 2. Chest x-ray showing 3 areas of pneumonitis, most likely early pneumonia, on IV antibiotics. 3. Benign hypertension, controlled. 4. Chronic low back pain. Continue home meds. [place], [place] PATIENT HISTORY AND PHYSICAL EXAM NAME: DALI EVANS UNIT #: [id number] ROOM: 532 DOCTOR: YU GALDAMEZ MD BIRTHDATE: [birth year] YU GALDAMEZ MD CM:HISPHYS:PATIENT HISTORY AND PHYSICAL EXAMINATION 0910 [id number] YU GALDAMEZ MD 03/30/18 1009 interface
--- NOTE | ~2018-03-29 | PR ---
[place], [place] PROGRESS NOTE NAME: DALI EVANS UNIT #: [id number] ROOM: 532 DOCTOR: THEA URIOTSEGUI MD,JAMARI BIRTHDATE: [birth year] DOS: 04/10/2018 SUBJECTIVE: He has a bronchoscopy done yesterday with significant improvement in the resolution of the acute respiratory symptom was noted also denies symptoms of fever or chills. Denies symptoms of hemoptysis, fever or chills. OBJECTIVE: VITAL SIGNS: Normal temperature, respiratory rate 18, heart rate 87, blood pressure 145/93. The pulse oxygen saturation recorded as 90% on room air. HEAD, EYES, EARS, NOSE, AND THROAT: Examination shows head was atraumatic. Eyes nonicterus. NECK: Supple. CARDIOVASCULAR SYSTEM: S1, S2 is audible. LUNGS: Noted without any wheeze or crackle this morning. ABDOMEN: Soft, nontender. Bowel sounds present. EXTREMITIES: Without any acute edema. IMPRESSION: The patient with a stable respiratory status improvement reduction in respiratory symptom post-bronchoscopy, acute exacerbation of COPD. The culture of bronchial washings showed no bacterial growth, final results are pending. PLAN OF MANAGEMENT: The patient could be discharged home, oral medications tapering prednisone, antibiotics. Outpatient followup suggested. Outpatient assessment for management consultation with Interventional Radiology services for possible vertebroplasty of T8 compression vertebral bone. The assessment and management of discharge planning was discussed with Dr. Agustina Salvador. JAMARI SIDHU MD CM:PNTRANS [phone] JAMARI URIOSTEGUI MD 11/14/18 0752 interface
--- NOTE | ~2018-03-29 | PR ---
[place], [place] PROGRESS NOTE [id number] #: [id number] ROOM: 532 DOCTOR: CARLOS DICKSON MD BIRTHDATE: [birth year] DOS: 04/03/2018 SUBJECTIVE: The patient is breathing slightly better. OBJECTIVE: GENERAL APPEARANCE: The patient is alert and oriented x 3, in no visible distress. VITAL SIGNS: Blood pressure 141/87, afebrile, heart rate of 99 beats per minute, breathing normally. HEENT AND NECK: Exam within normal limits. CARDIOVASCULAR SYSTEM: Heart rate is regular in rate and rhythm. S1 and S2 normally audible. LUNGS: Decreased breath sounds and mild expiratory wheezing. ABDOMEN: Soft, nontender. No obvious organomegaly. Bowel sounds are present. EXTREMITIES: Without significant cyanosis or edema. IMPRESSION: 1. The patient with acute exacerbation of severe underlying chronic obstructive pulmonary disease with improvement in breathing with bronchodilators, antibiotics and corticosteroids. 2. Minimal right lower lobe nodular opacity, which is residual on CT scan of the chest. 3. Moderate size hiatal hernia. The patient treated with proton pump inhibitors. 4. Bilateral pneumonia, treated with antibiotics and improved. 5. Benign essential hypertension, treated and controlled. 6. Acute over chronic respiratory failure, improving with treatment. CARLOS DICKSON MD CM:PNTRANS [id number] CARLOS DICKSON MD 04/04/18 1536 interface
--- NOTE | ~2018-03-29 | PROC NOTE ---
[place], [place] PROCEDURE NOTE NAME: DALI EVANS UNIT #: [id number] ROOM: 532 DOCTOR: THEA URIOSTEGUI MD,JAMARI BIRTHDATE: [birth year] DOS: 04/09/2018 PROCEDURE: Bronchoscopy. PREOPERATIVE DIAGNOSES: Persistent severe coughing and wheezing with current acute pneumonia, with maximum medical therapy, no improvement noted further in the symptoms. POSTOPERATIVE DIAGNOSES: Evidence of severe impaction of the mucus, cleared endobronchial tree bilaterally without any evidence of endobronchial obstruction no endobronchial lesions. COMPLICATIONS: None. PROCEDURE DESCRIPTION: Informed consent obtained. The patient brought to the OR and placed in supine position. Conscious sedation administered by the Anesthesia Department. After achieving proper sedation, airway introduced into the mouth. Bronchoscope advanced to the airways into laryngeal area. Epiglottis and vocal cord seen. The bronchoscope advanced to the vocal cord into tracheal lumen was noted copious amount of very thick green color secretion mixture of the mucus and the pus. The bronchial washing was suctioned out to the josseline level. Right upper, right middle, right lower, left upper, lingula, and lower lobe bronchi were all examined. The patient noted similar secretions noted in the tracheal lumen with impaction of the mucus plug in the airways as well. The secretion suctioned out with the patient with upper normal saline wash and removed from the endobronchial tree. No endobronchial obstructive lesions noted. All the mucus impaction cleared with normal saline wash and sent for culture. Procedure well tolerated by the patient without difficulty. Postoperative findings were discussed with the patient's family members in detail. JAMARI SIDHU MD CM:PROCNOTE:PROCEDURE NOTE 1303 1928 CARLOS DICKSON MD and YU URIOSTEGUI MD
--- NOTE | ~2018-03-29 | PR ---
[place], [place] PROGRESS NOTE NAME: DALI EVANS UNIT #: [id number] ROOM: 532 DOCTOR: CARLOS DICKSON MD BIRTHDATE: [birth year] DOS: 04/06/2018 SUBJECTIVE: The patient is still quite short of breath and does not feel good enough to go home. OBJECTIVE: GENERAL APPEARANCE: The patient is alert and oriented x 3, in no visible distress. Generalized weakness. VITAL SIGNS: Blood pressure 152/92, heart rate of 100 beats per minute, breathing 20 times per minute, temperature 98 degrees Fahrenheit. HEENT AND NECK: Exam within normal limits. CARDIOVASCULAR SYSTEM: Heart rate is regular in rate and rhythm. S1 and S2 normally audible. LUNGS: Decreased breath sounds all over. ABDOMEN: Soft, nontender. No obvious organomegaly. Bowel sounds are present. EXTREMITIES: Without significant cyanosis or edema. IMPRESSION: 1. Advanced end-stage chronic obstructive pulmonary disease, with acute exacerbation. The patient is still quite short of breath. I will consult Dr. Umana, the rail car loader, who is back in town now, to help with the treatment. 2. Benign essential hypertension. Blood pressure is being monitored and treated. 3. Bilateral lower lobe pneumonia, cleared with antibiotics. 4. Advanced adult failure to thrive and generalized weakness and also dyspnea on exertion related to advanced chronic obstructive pulmonary disease, being treated with bronchodilators. CARLOS DICKSON MD CM:PNTRANS 51 1 CARLOS DICKSON MD 04/07/18 0120 interface
--- NOTE | ~2018-03-29 | EKG ---
[place], [place] ELECTROCARDIOGRAM REPORT NAME: DALI EVANS UNIT #: [id number] ROOM: 532 DOCTOR: WALLY DRAFT REPORT BIRTHDATE: [birth year] [facility] Test Date: 2018-03-29 Test Time: 12:22:03 Pat Name: DALI EVANS Department: Room: 532 Gender: M Field Marketing Specialist: Consuelo Foss : 1955 Requested By: NAM ESTEVEZ Order Number: [id number] Reading MD: Rupinder Cadet MD Measurements Intervals [place] Rate: 110 P: 70 MN: 156 QRS: 15 QRSD: 64 T: 45 QT: 350 QTc: 474 Interpretive Statements Sinus tachycardia Borderline low voltage, extremity leads Minimal ST depression, anterolateral leads Compared to ECG 03/08/2018 11:11:18 ST (T wave) deviation now present Electronically Signed On 03-31-2018 7:52:44 PST by Rupinder Cadet MD CM:EKGRPT:ELECTROCARDIOGRAM REPORT [id number] NAM ESTEVEZ EPIPHANY DRAFT REPORT NAM ESTEVEZ
--- NOTE | ~2018-03-29 | PR ---
[place], [place] PROGRESS NOTE [id number] UN[facility] #: [id number] ROOM: 532 DOCTOR: YU GALDAMEZ MD BIRTHDATE: [birth year] DOS: SUBJECTIVE: The patient is doing much better. He underwent a bronchoscopy. Bronch cultures have come back negative. He is breathing much better and is no longer coughing up greenish sputum. His cough is mostly white, minimal mucus. OBJECTIVE: VITAL SIGNS: Blood pressure is 136/77, pulse of 89, respirations 18, temperature 97.6. LUNGS: Clear. HEART: Regular. ABDOMEN: Obese, soft. EXTREMITIES: Without any edema. ASSESSMENT AND PLAN: 1. Acute exacerbation of chronic obstructive pulmonary disease, stable and improved. 2. Acute bronchitis, status post bronchoscopy with bronch cultures being negative. 3. Bilateral pneumonia, which is resolving. 4. Acute compression fracture of the thoracic spine and MRI will be ordered today, after that the patient can be discharged to home. YU GALDAMEZ MD CM:PNTRANS [phone] YU GALDAMEZ MD 04/11/18 0645 interface
--- NOTE | ~2018-03-29 | PR ---
[place], [place] PROGRESS NOTE NAME: DALI EVANS UNIT #: [id number] ROOM: 532 DOCTOR: YU GALDAMEZ MD BIRTHDATE: [birth year] DOS: SUBJECTIVE: The patient appears to be a lot more short of breath this morning. OBJECTIVE: VITAL SIGNS: Graphic trend shows a pressure of 129/87, pulse of 90, respirations 20, temperature 97.9. LUNGS: Diminished breath sounds, scattered wheezes and rhonchi heard. HEART: Regular. ABDOMEN: Obese, soft, nontender. EXTREMITIES: Without any edema. ASSESSMENT AND PLAN: 1. Acute exacerbation of chronic obstructive pulmonary disease with pretty significant exacerbation this morning. He is already on IV steroids and breathing treatments. We will add Pulmicort. 2. Pneumonia, recent CT scan showing evidence of multifocal pneumonia. The patient is on IV antibiotics. Since he is pretty short of breath this morning, go ahead and arrange for an ABG. 3. Benign hypertension, controlled. Check echocardiogram. YU GALDAMEZ MD CM:PNTRANS YU GALDAMEZ MD 03/31/18 0930 interface
--- NOTE | ~2018-03-29 | PR ---
[place], [place] PROGRESS NOTE NAME: DALI EVANS UNIT #: [id number] ROOM: 532 DOCTOR: JAMARI SHEPHERD MD BIRTHDATE: [birth year] DOS: 04/09/2018 SUBJECTIVE: The patient has been noted comfortable at this time, resting on the bed this morning of assessment. He is n.p.o. past midnight for bronchoscopy, still complaining of symptoms of chest pain remains unchanged in the mid thoracic area. Denies symptoms of fever or chills. Cough has been noted severe nonproductive. Shortness breath was noted somewhat decreased. Denies symptoms of hemoptysis. Denies any pain of the lower extremity or edema. Denies symptoms of nausea, vomiting, diarrhea, headache, or diplopia. Remaining systems were reviewed, they were noted all negative. OBJECTIVE: VITAL SIGNS: For the patient which has been recorded showed the temperature noted normal, respiratory rate 20, heart rate of 99, blood pressure 164/100-154/94. Pulse oxygen saturation recorded as 99% saturation on room air at rest. HEENT: Showed no acute change. NECK: Supple. CARDIOVASCULAR: S1, S2 is audible. LUNGS: Noted with generally decreased breath sounds with moderate expiratory wheezing, no crackles. ABDOMEN: Soft, obese, nontender. EXTREMITIES: Chronic obesity without any edema. MUSCULOSKELETAL: Without acute deformities. CENTRAL NERVOUS SYSTEM: Cranial nerves 2-12 intact. LABORATORY DATA: There were no labs done today. IMPRESSION: 1. The patient with ongoing acute exacerbation of chronic obstructive pulmonary disease. Acute bronchitis, not responding to the treatment with current acute pneumonia, treated with the antibiotics as vancomycin received, gram-negative coverage with meropenem. 2. The patient with moderate obesity. 3. Suspected obstructive sleep apnea disorder as well. 4. Acute compression fracture of the T8 with reported chest pain. PLAN OF TREATMENT: Continue the patient's current plan of management: Proceed with bronchoscopy. Any changes and modification treatment if necessary will be ordered after the bronchoscopy. Other usual care, plan of treatment and therapies. [place], [place] PROGRESS NOTE NAME: DALI EVANS UNIT #: [id number] ROOM: 532 DOCTOR: JAMARI SHEPHERD MD BIRTHDATE: [birth year] JAMARI SIDHU MD CM:PNTRANS [id number] JAMARI URIOSTEGUI MD 04/09/18 1501 interface
--- NOTE | ~2018-03-29 | CON ---
[place], [place] REPORT OF CONSULTATION NAME: DALI EVANS [facility] #: [id number] UNIT #: [id number] ROOM: 532 DOCTOR: THEA URIOSTEGUI MDJAMARI BIRTHDATE: [birth year] DOS: 04/07/2018 CONSULTATION REQUESTED BY: Dr. Agustina Salvador. REASON FOR CONSULTATION: Assess the patient for current symptoms of shortness of breath, exacerbation of chronic obstructive pulmonary disease and pneumonia. HISTORY OF PRESENT ILLNESS: This is a 62-year-old white male known to me with past history of chronic obstructive pulmonary disease, has been admitted to the hospital previously and was assessed by me. The patient had a therapeutic bronchoscopy done on one of the previous admission as well in 01/2018. He presented to the hospital, admitted under care of Dr. Agustina Salvador on the date of 03/29/2018. The patient stating symptoms of increased shortness of breath with cough, which has been noted nonproductive. He is unable to expectorate sputum at this time, has been managed with intravenous broad spectrum antibiotics as meropenem for the patient and vancomycin since admission. The CT scan of chest was done on this patient that reported a nodular infiltration in the right lower lobe of the patient with some ground glass opacity seemed to be resolved with followup CT scan, which was done few days later on this hospitalization. The patient continued to experience symptoms of shortness breath, which occurs with minimal exertion sometime at rest. Currently, not using any oxygen supplementation. Coughing has been noted [id number], nonproductive, inability to expectorate sputum. The patient was also complaining of sinus congestion and not able to blowout his nose as well effectively. He does have symptoms of wheezing at times. He does complain of pain, which he described in the mid portion of the lower chest wall, worse with the body movements. Pain was described to be sharp and dull other times on a scale of 1-10 up to 7 or 8 at times. He denies symptoms of hemoptysis. REVIEW OF SYSTEMS: CONSTITUTIONAL: Fatigue and tiredness persisted since admission. There were no symptoms of fever or chills. EYES: Denies burning, redness, or tenderness. EARS, NOSE, THROAT SYMPTOMS: Denies sore throat, hoarseness, otalgia, postnasal drainage or epistaxis. CARDIOVASCULAR: No anginal pain, edema, or pain in lower extremities. GASTROINTESTINAL: Denies dysphagia, nausea, vomiting, diarrhea, abdominal pain, hematemesis, melena, or hematochezia. GENITOURINARY: No dysuria, suprapubic pain, hematuria or urinary incontinence. SKIN: No abnormal lesions or rashes. CENTRAL NERVOUS SYSTEM: Denies symptoms of dizziness, headache, diplopia, syncopal episodes. MUSCULOSKELETAL: There were no joint pain or deformities reported. Remaining systems were reviewed. They were noted all negative. PAST MEDICAL HISTORY: 1. History of chronic obstructive pulmonary disease. 2. Uncomplicated severe persistent bronchial asthma. 3. Essential hypertension. [place], [place] REPORT OF CONSULTATION NAME: DALI EVANS UNIT #: [id number] ROOM: [facility] DOCTOR: JAMARI SHEPHERD MD BIRTHDATE: [birth year] 4. History of rheumatoid arthritis. 5. Past history of pneumonia. 6. Obesity. PAST SURGICAL HISTORY: 1. Intubation and mechanical ventilation. 2. Bilateral hip replacement. 3. Inguinal hernia repair. 4. Therapeutic bronchoscopy, last one done in 01/2018. SOCIAL HISTORY: The patient is , has 2 children, lives at home. Denies alcohol use or illicit drug use. Tobacco use noted since teenager, 1.5 pack of cigarettes per day that was discontinued approximately in 1997. FAMILY HISTORY: Noted noncontributory. CURRENT MEDICATIONS: Administered on this hospitalization were noted as use of Mucinex 600 mg p.o. b.i.d., DuoNeb q.4h., Solu-Medrol 40 mg every 8 hours, Cardizem 180 mg daily, Pulmicort Respules 0.5 mg b.i.d., Singulair 10 mg daily, losartan 100 mg daily, aspirin 81 mg p.o. daily, simvastatin 5 mg at bedtime, intravenous vancomycin. Discontinuation of the meropenem today from admission. DRUG ALLERGIES: NOTED ALLERGY TO MORPHINE SULPHATE. PHYSICAL EXAMINATION: GENERAL: This is a 62-year-old white male patient noted to be somewhat anxious with several family members present in the room and has been asking multiple questions about the patient how and nonresolution of the symptom. The patient's height was noted as 5 feet 8 inches, weight of 170 pounds, BMI 25.8. VITAL SIGNS: Noted as normal temperature since hospitalization. The respiratory rate was recorded as 20-22. Heart rate was recorded as 105-94. The blood pressure of 158/100 to 154/90. Pulse oxygen saturation recorded rest on room air 97% saturation. HEENT: Mcxx-jx-iwopvdzp obesity. Head was atraumatic. Eyes nonicterus. NECK: Supple. CARDIOVASCULAR SYSTEM: S1, S2 audible. LUNGS: Rhonchorous breathing was noted in the lungs bilaterally which was diffuse. There were no crackles. ABDOMEN: Soft, nontender, bowel sounds present. EXTREMITIES: The patient was noted without any edema, clubbing, or cyanosis. MUSCULOSKELETAL: Without any obvious deformities. VISIBLE SKIN: No lesions or rashes. CENTRAL NERVOUS SYSTEM: The patient's cranial nerves 2-12 intact without any focal deficit. Examination of the spine noted with some tenderness in the mid portion of the spine in the lower thoracic and upper lumbar vertebra as some muscular tenderness also noted bilaterally in the area close to the chest wall posteriorly. There were no abnormal skin lesions or rashes noted. DIAGNOSTIC DATA: The review of the laboratory data for this patient; the CBC on 03/31/2018; WBC count 10.9, hemoglobin 13.6, and platelet count were normal. [place], [place] REPORT OF CONSULTATION NAME: DALI EVANS UNIT #: [id number] ROOM: [facility] DOCTOR[facility] [birth year] The arterial blood gas on the 24th 3 liters, pH of 7.38, pCO2 of 37, pO2 of 94. BMP that was done on the normal BUN and creatinine. The CBC of the patient this morning, WBC count 9.6, hemoglobin 12.8, and hematocrit 39.4. Blood culture, no bacterial growth on of this month. BUN and creatinine, which was done on 04/06/2018 yesterday were noted as normal. Vancomycin trough level 15.2, which is therapeutic. RADIOLOGIC DATA: Review of the radiology data on this admission was reviewed. CT scan of chest was done without contrast 03/29/2018 was noted small patch of infiltration noted as ground glass opacity in the lingula. A 3 cm ground glass opacity noted in the right lower lobe with small nodular opacity in the right lower lobe as well. Changes of centrilobular emphysema noted diffuse in the lungs bilaterally. There was no abnormal lymphadenopathy noted. However, the mediastinal structures assessment will be limited because of lack of intravenous contrast. The CT scan of the chest on 11/15/2014 was noted with changes of COPD and centrilobular emphysema. The CT scan of the chest were repeated again on 04/02/2018 ordered by primary care physician for the patient noted reduction in nodular opacity and infiltration in the lungs. IMPRESSION: 1. The patient who has been currently admitted in the hospital being treated with acute exacerbation of chronic obstructive pulmonary disease, acute bronchitis as well as possibility of acute pneumonia involving the lingula and the right lower lobe. 2. Radiologic improvement noted and pulmonary infiltration with current antibiotics. 3. Significant cough with shortness of breath at times and the wheezing could occur most likely mucus impaction that has not been resolving. 4. Generalized anxiety disorder may be contributing to increased shortness of breath as well. 5. Rule out compression fracture of the lower thoracic or the upper lumbar vertebra bone for this patient because of current chest pain, which is noted versus muscle spasm for this patient causing the current chest pain. 6. The patient with history of bronchial asthma noted with acute exacerbation as well. 7. Possibility of sinus infection has been also considered with current symptoms as well. 8. Rule out hypercapnia with repeat arterial blood gases as well. PLAN OF MANAGEMENT: The Solu-Medrol will be continued same dose. Continue antibiotic, no changes. Therapeutic bronchoscopy assessed and planned to be done on Saturday morning for the patient based on the schedule availability and holiday, which has been noted tomorrow in the hospital for the New Year. Mucinex dose was changed to 1200 mg p.o. b.i.d. with use of the flutter valve every 1-hour to help expectorate sputum in the meantime. Bronchodilator will be changed for the patient from DuoNeb to albuterol sulfate for the medical management exacerbation of chronic obstructive pulmonary disease. Continue the anxiolytic for the patient and other medical management as provided by the primary care physician. Ordered the lumbar and thoracic x-ray at the initial step to rule out any acute compression fracture resulting in recurrent pain. [place], [place] REPORT OF CONSULTATION NAME: DALI EVANS UNIT #: [id number] ROOM: [facility] DOCTOR: THEA URIOSTEGUI MD,JAMARI BIRTHDATE: [birth year] Arterial blood gas was also ordered on room air. Questions asked by the family members has been addressed to their satisfaction based on the current assessment. Other supportive therapy, plan of management, care plan for the patient as well. Thanks for allowing me to participate in care of this patient. JAMARI SIDHU MD CM:CONSTR:REPORT OF CONSULTATION 1542 04/07/18 1839 interface
--- NOTE | ~2018-03-29 | PR ---
[place], [place] PROGRESS NOTE NAME: DALI EVANS UNIT #: [id number] ROOM: 532 DOCTOR: YU GALDAMEZ MD BIRTHDATE: [birth year] DOS: SUBJECTIVE: The patient is doing better than yesterday. He is less tachypneic less tachycardic. He is not struggling like he was yesterday to breathe. OBJECTIVE: VITAL SIGNS: Graphic trend shows pressure 145/97, pulse of 69, respirations 20, temperature 97.9. LUNGS: Diminished breath sounds, scattered wheezes. HEART: Regular. ABDOMEN: Obese, soft. EXTREMITIES: Without any edema. LABORATORY DATA: Blood culture shows no bacterial growth. Blood gas showed a pCO2 of 37, pO2 of 94, bicarbonate was 22.0 with an oxygen saturation 97.9. ASSESSMENT AND PLAN: 1. Acute exacerbation of chronic obstructive pulmonary disease. The patient is definitely improved in the last 24 hours once we adjusted his medications. 2. Chronic respiratory failure, oxygen dependent. Continue treatment plan. 3. Benign hypertension, controlled. 4. Before tachycardia, most likely from chronic obstructive pulmonary disease echocardiogram will be ordered, which is pending. 5. Bilateral pneumonia, on IV antibiotics. 6. Moderate size hiatal hernia. We will add proton pump inhibitors. YU GALDAMEZ MD CM:PNTRANS [id number] YU GALDAMEZ MD 04/01/18 1008 interface
--- NOTE | ~2018-03-29 | PR ---
[place], [place] PROGRESS NOTE NAME: DALI EVANS UNIT #: [id number] ROOM: 532 DOCTOR: CARLOS DICKSON MD BIRTHDATE: [birth year] DOS: 04/09/2018 SUBJECTIVE: The patient is feeling better and breathing improved after his bronchoscopy. OBJECTIVE: GENERAL APPEARANCE: The patient is alert and oriented x 3, in no visible distress. Generalized weakness. VITAL SIGNS: Blood pressure 161/94, heart rate of 93 beats per minute, breathing 20 times per minute, afebrile. HEENT AND NECK: Exam within normal limits. CARDIOVASCULAR SYSTEM: Heart rate is regular in rate and rhythm. S1 and S2 normally audible. LUNGS: Decreased breath sounds all over. ABDOMEN: Soft, nontender. No obvious organomegaly. Bowel sounds are present. EXTREMITIES: Without significant cyanosis or edema. IMPRESSION: 1. Acute exacerbation of severe end-stage underlying chronic obstructive pulmonary disease and acute over chronic respiratory failure, which has been difficult to improve, but the patient breathing slightly better after bronchoscopy and Dr. Umana believes we may be able to discharge him to home tomorrow. 2. Benign essential hypertension, treated and controlled. 3. Bilateral lower lobe pneumonia has improved with treatment. 4. Advanced adult failure to thrive and generalized weakness and dyspnea with slightest exertion. The patient is ambulating to the bathroom. CARLOS DICKSON MD CM:PNTRANS [id number] CARLOS DICKSON MD 04/09/18 1322 interface
--- NOTE | ~2018-03-29 | PR ---
[place], [place] PROGRESS NOTE NAME: DALI EVANS UNIT #: [id number] ROOM: 532 DOCTOR: CARLOS DICKSON MD BIRTHDATE: [birth year] DOS: 04/08/2018 SUBJECTIVE: The patient with significant shortness of breath, slightly improved today. OBJECTIVE: GENERAL APPEARANCE: The patient is alert and oriented x 3, in no visible distress. VITAL SIGNS: Blood pressure 151/81, heart rate 77 beats per minute, breathing 22 times per minute, temperature of 98 beats per minute. HEENT AND NECK: Exam within normal limits. CARDIOVASCULAR SYSTEM: Heart rate is regular in rate and rhythm. S1 and S2 normally audible. LUNGS: Decreased breath sounds all over. ABDOMEN: Soft, nontender. No obvious organomegaly. Bowel sounds are present. EXTREMITIES: Without significant cyanosis or edema. IMPRESSION: 1. The patient has severe end-stage chronic obstructive pulmonary disease with acute exacerbation, is scheduled for bronchoscopy by Dr. Umana tomorrow to help him clear the airways. He can be discharged to home earlier. 2. Benign essential hypertension, treated and controlled. 3. Bilateral lower lobe pneumonia, resolved with antibiotics. 4. Advance adult failure to thrive and generalized weakness with dyspnea with slightest exertion. CARLOS DICKSON MD CM:PNTRANS [id number] CARLOS DICKSON MD 04/09/18 0513 interface
--- NOTE | ~2018-03-29 | PR ---
[place], [place] PROGRESS NOTE [id number] #: [id number] ROOM: 532 DOCTOR: CARLOS DICKSON MD BIRTHDATE: [birth year] DOS: SUBJECTIVE: The patient is still quite short of breath and waiting for bronchoscopy by Dr. Umana tomorrow. OBJECTIVE: GENERAL APPEARANCE: The patient is alert and oriented x 3, in no visible distress. VITAL SIGNS: Blood pressure 154/90, breathing 21 times per minute, heart rate 105 beats per minute, afebrile. HEENT AND NECK: Exam within normal limits. CARDIOVASCULAR SYSTEM: Heart rate is regular in rate and rhythm. S1 and S2 normally audible. LUNGS: Decreased breath sounds all over and some expiratory wheezing on lung auscultation. ABDOMEN: Soft, nontender. No obvious organomegaly. Bowel sounds are present. EXTREMITIES: Without significant cyanosis or edema. IMPRESSION: 1. Acute over chronic respiratory failure and acute exacerbation of chronic obstructive pulmonary disease with continued shortness of breath. The patient's blood gases appeared to be baseline. Dr. Umana is taking him again for bronchoscopy to clear his airways tomorrow. 2. Benign essential hypertension. Blood pressures to be monitored and treated. 3. Bilateral lower lobe pneumonia, resolved with antibiotics. 4. Advance adult failure to thrive and generalized weakness with dyspnea with slightest exertion. CARLOS DICKSON MD CM:PNTRANS [id number] CARLOS DICKSON MD 04/08/18 0005 interface
--- NOTE | ~2018-03-29 | PR ---
[place], [place] PROGRESS NOTE [id number] #: [id number] ROOM: 532 DOCTOR: CARLOS DICKSON MD BIRTHDATE: [birth year] DOS: 04/04/2018 SUBJECTIVE: The patient is still short of breath and wheezing. PHYSICAL EXAMINATION: GENERAL APPEARANCE: The patient is alert and oriented x 3, in no visible distress. VITAL SIGNS: Blood pressure 149/99, heart rate of 102 beats per minute, breathing normally, afebrile. HEENT AND NECK: Exam within normal limits. CARDIOVASCULAR SYSTEM: Heart rate is regular in rate and rhythm. S1 and S2 normally audible. LUNGS: Decreased breath sounds all over. ABDOMEN: Soft, nontender. No obvious organomegaly. Bowel sounds are present. EXTREMITIES: Without significant cyanosis or edema. IMPRESSION: 1. The patient with acute exacerbation of chronic obstructive pulmonary disease with severe underlying disease and acute over chronic respiratory failure, continues to have wheezing and shortness of breath. The patient has end-stage lung disease and is being treated with bronchodilators, oxygen, nebulizer treatments and corticosteroids. 2. Benign essential hypertension with tachycardia, being followed and treated, tachycardia improved with Cardizem. 3. Bilateral lower lung pneumonia, improved, mostly cleared with treatment with antibiotics. 4. Benign essential hypertension, treated and controlled. CARLOS DICKSON MD CM:PNTRANS [id number] CARLOS DICKSON MD 04/04/18 175 interface
--- NOTE | ~2018-03-29 | DS ---
[place], [place] DISCHARGE SUMMARY NAME: DALI EVANS UNIT #: [id number] ROOM: 532 DOCTOR: YU GALDAMEZ MD BIRTHDATE: [birth year] DOS: 04/10/2018 DIAGNOSES: 1. Acute exacerbation of chronic obstructive pulmonary disease. 2. Bilateral pneumonia, which is resolving. 3. Status post bronchoscopy with negative cultures. 4. Acute compression fracture of the thoracic spine. MRI pending. Possible vertebroplasty as an outpatient of T8. 5. Benign hypertension. 6. Generalized weakness requiring visiting nurses and PT, OT as an outpatient. HOSPITAL COURSE: The patient is 62 years old, well known to us, comes in with complaints of cough and difficulty breathing. Please refer to H and P dictated for details as well as the progress note. The patient continued to be pretty sick for the next several days with increased tachypnea. A CT scan showed bilateral pneumonia with consolidation, which over the last several days with repeat CAT scan has shown improvement. The patient also had increased back pain and x-rays of the back showed compression fracture of the T8 and chronic compression fracture of the lumbar spine. We are unable to do a vertebroplasty this admission because the doctor who performs it is out of town. MRI has been ordered and which is pending this morning. The patient continued to have significant shortness of breath and cough and on maximal treatment plan was not getting any better, so Dr. Umana was consulted and a bronchoscopy was performed. Bronch cultures are negative. After bronchoscopy the patient has felt much improved and this morning is stable enough to be discharged to home to be followed up as an outpatient. DISCHARGE MEDICATIONS: Will be tapering dose of steroids, Levaquin 750 daily for 7 days, simvastatin 5 mg daily, breathing treatments DuoNeb q. 6, diltiazem 240 daily, losartan 100 mg daily, aspirin 81 daily, [place] 7.5 q.i.d. with Pulmicort 0.5 b.i.d., Singulair 10 daily, guaifenesin 400 b.i.d. [place], [place] DISCHARGE SUMMARY NAME: DALI EVANS UNIT #: [id number] ROOM: 532 DOCTOR: YU GALDAMEZ MD BIRTHDATE: [birth year] YU GALDAMEZ MD CM:CHAY [id number] YU GALDAMEZ MD 04/10/18 1817 interface
--- NOTE | ~2018-03-29 | PR ---
[place], [place] PROGRESS NOTE NAME: DALI EVANS [facility] #: [id number] UNIT #: [id number] ROOM: 532 DOCTOR: THEA URIOSTEGUI MD,JAMARI BIRTHDATE: [birth year] DOS: 04/08/2018 SUBJECTIVE: The patient has reported partial reduction of the respiratory complaints from yesterday, chest pain still described unchanged. The patient denies symptoms of fever or chills. Denies symptoms of hemoptysis. General weakness and fatigue were noted. Arterial blood gas yesterday was done for the patient does not show evidence of hypercapnia. He has not required use of oxygen. He was continued use of corticosteroid and the antibiotics. Denies symptoms of nausea, vomiting, diarrhea, abdominal pain. Denies edema or pain of the lower extremities. Remaining systems were reviewed, they were noted all negative. OBJECTIVE: VITAL SIGNS: For the patient which has been recorded shows the temperature noted as normal. The respiratory rate of 18-22, pulse of 95-103, blood pressure 153/94-140/88. Pulse oxygen saturation on room air was 95% saturation. GENERAL: Chronic obesity. NECK: Supple. CARDIOVASCULAR: S1, S2 is audible. LUNGS: Expiratory wheezing noted partially decreased from previous examination. ABDOMEN: Soft and obese. EXTREMITIES: Without edema. MUSCULOSKELETAL: Without acute deformities. CENTRAL NERVOUS SYSTEM: Cranial nerves 2-12 intact. LABORATORY DATA: The thoracic spine confirmed the presence of acute moderate to advanced T8 compression fracture most likely resulting current pain. The patient noted some chronic fracture of the L1 and L3 end plate in the lumbar spine x-rays. The arterial blood gas yesterday pH of 7.47, pCO2 of 35, pO2 of 82. Vancomycin trough level noted 15.2. IMPRESSION: 1. The patient with ongoing acute exacerbation of chronic obstructive pulmonary disease, acute tracheobronchitis. 2. Acute pneumonia, severe nonproductive cough, acute chest pain secondary to compression fracture of T8, it would be the likely cause of the chest pain. 3. The patient with chronic ncuh-ap-vupgxobr obesity as well and other medical illnesses PLAN OF MANAGEMENT: Continue current outlined plan of a treatment, bronchoscopy already planned for the patient and the patient has been considered for a bronchoscopy done tomorrow morning. In the meantime, continue present plan of treatment at this time. Usual care. Supportive plan of therapy and plan of management. [place], [place] PROGRESS NOTE NAME: DALI EVANS UNIT #: [id number] ROOM: 532 DOCTOR: JAMARI SHEPHERD MD BIRTHDATE: [birth year] JAMARI SIDHU MD CM:PNTRANS [id number] JAMARI URIOSTEGUI MD 11/14/18 0749 interface
[~2018-03-29 11:43] MED LIST changes: +AUGMENTIN 875-875 MG PO; +LOSARTAN POTAS100 M1 PO; +MEDROL DOSEPAK4 MG PO; +MUCUS RELIEF400 MG PO; +SOLU-MEDRO40 MG/1 ML IV
[2018-03-29 11:44] VITALS: BP 136/108
[2018-03-29 12:15] VITALS: BP 146/98
[2018-03-29 12:26] LABS: BASO % 0.5 % (0.0-1.0); EOS # 1.2 10*3/uL (0.0-0.4); EOS % 13.7 % (1.0-4.0); LYMPH # 0.4 10*3/uL (1.3-4.4); LYMPH % 4.3 % (27.0-41.0); MEAN CELL VOLUME 94.2 fl (80.0-94.0); MEAN CORPUSCULAR HGB 31.4 pg (27.0-31.0); MEAN CORPUSCULAR HGB CONC 33.3 g/dl (33.0-37.0); MEAN PLATELET VOLUME 9.6 fl (9.6-12.3); MONO # 0.4 10*3/uL (0.1-1.0); MONO % 4.5 % (3.0-9.0); NEUT # 6.4 10*3/uL (2.3-7.9); NEUT % 76.6 % (47.0-73.0); PLATELET COUNT AUTOMATED 172 10*3/uL (130-400); RED BLOOD COUNT 4.46 10*6/uL (4.50-5.90); RED CELL DISTRI WIDTH 15.1 % (0-14.5); WHITE BLOOD COUNT 8.4 10*3/uL (4.8-10.8)
[2018-03-29 12:42] LABS: ALBUMIN 3.6 gm/dl (3.1-4.5); ALKALINE PHOSPHATASE 121 U/L (45-117); BUN 10 mg/dl (7-24); CHLORIDE 108 mmol/L (98-107); CREATININE 0.78 mg/dL (0.70-1.30); POTASSIUM 3.7 mmol/L (3.5-5.1); SGOT/AST 10 IU/L (3-35); SGPT/ALT 16 U/L (12-78); SODIUM 140 mmol/L (136-145); TOTAL PROTEIN 7.1 gm/dL (6.4-8.2)
[2018-03-29 12:45] LABS: TROPONIN I < 0.015 ng/ml (<0.045)
[2018-03-29 13:00] VITALS: BP 146/98
--- NOTE | 2018-03-29 13:00 | NUR ---
Time: 1300 A 62 year old MALE admitted to 5E under services of YU BRYANT MD. Pt. arrived via bed from ER. Chief complaint: COPD EXACERBATION. PATIENT ORIENTED TO THE FLOOR 5E, CALL LIGHT SYSTEM EXPLAIN AND DEMONSTRATED. CARDIAC MONITORED APPLIED. BEATRICE ARANGO
--- NOTE | 2018-03-29 13:41 | NUR ---
SPOKE WITH DR. GALDAMEZ FOR ADMISSION ORDERS. PATIENT CONDITION, HX AND LAB VALUES REVIEWED. ORDERS RECEIVED TO START THE PATIENT ON ROCEPHIN, AZITHROMYCIN AND SOLU-MEDROL. ORDER A CT OF THE CHEST, REGULAR DIET, AND RESUME HOME MEDICATIONS.
[2018-03-29 16:00] VITALS: BP 142/88
--- NOTE | 2018-03-29 19:00 | NUR ---
BEDSIDE REPORT OBTAINED FROM BEATRICE-RN. PTAIENT IS AWAKE/ALERT, PARTICIPATED IN REPORT, QUESTION/CONCERNS ANSWERED. PATIENT VOICED NO COMPLAINTS AT THIS TIME. NO S&S OF DISTRESS NOTED, RESP ARE ERND ON O2 3LPM NC. BED IS LOCKED IN LOWEST POSITION. CALL LIGHT LEFT WITHIN REACH.
[2018-03-29 20:00] VITALS: BP 144/72
[2018-03-30] VITALS: BP 151/94
--- NOTE | 2018-03-30 02:00 | NUR ---
PATIENT ASLEEP, CALL LIGTH LEFT WITHIN REACH.
[2018-03-30 12:00] VITALS: BP 139/84
--- NOTE | 2018-03-30 14:41 | NUR ---
PATIENT IV BECAME INFLAMED AND PAINFUL PER PT. NEW IV STARTED IN THE LEFT ARM. PATIENT TOLERATED WELL.
[2018-03-30 16:00] VITALS: BP 140/75
[2018-03-30 20:00] VITALS: BP 146/90; BP 175/91
--- NOTE | 2018-03-30 20:45 | NUR ---
Was notified by PA that automatic bp was high. Pt states his blood pressure was checked while he was watching the [place] game and he was agitated. Manual BP at this time was 146/90.
--- NOTE | 2018-03-30 22:10 | NUR ---
States norco given earlier helped pain.
[2018-03-31] VITALS: BP 129/87
[2018-03-31 06:25] LABS: HEMATOCRIT 42.2 % (42.0-52.0); HEMOGLOBIN 13.6 g/dl (14.0-18.0); MEAN CELL VOLUME 94.8 fl (80.0-94.0); MEAN CORPUSCULAR HGB 30.6 pg (27.0-31.0); MEAN CORPUSCULAR HGB CONC 32.2 g/dl (33.0-37.0); MEAN PLATELET VOLUME 9.8 fl (9.6-12.3); PLATELET COUNT AUTOMATED 207 10*3/uL (130-400); RED BLOOD COUNT 4.45 10*6/uL (4.50-5.90); RED CELL DISTRI WIDTH 14.8 % (0-14.5); WHITE BLOOD COUNT 10.9 10*3/uL (4.8-10.8)
[2018-03-31 06:40] LABS: CHLORIDE 106 mmol/L (98-107); CREATININE 0.88 mg/dL (0.70-1.30); SODIUM 140 mmol/L (136-145)
[2018-03-31 06:44] LABS: BUN 21 mg/dl (7-24)
[2018-03-31 06:52] LABS: ATYPICAL LYMPHS 2 % (0-0); TOTAL CELLS COUNTED 100 #CELLS
[2018-03-31 06:53] LABS: PLATELET SUFFICIENCY NORMAL (NORMAL)
[2018-03-31 08:00] VITALS: BP 149/92
--- NOTE | 2018-03-31 08:30 | NUR ---
Derrick Helper in to talk to patient. Patient states lives at home with his . There are basement steps in the home. Physician: Dr. Agustina Salvador Pharmacy: [facility] Home health services: none Patient's level of ADLs: INDEPENDENT Patient has working utilities: yes DME: nebulizer Follow-up physician's appointment after d/c: he prefers to make his own follow up appt after discharge Does patient want to access PORTAL?: no Discharge plan discussed with patient. He lives at home with his . He is independent in his ADLs and ambulation. Discussed home health care services and he denies any home needs. When medically stable he will be discharged to home. GUNNAR COPPOLA
[2018-03-31 08:59] LABS: ABG BASE EXCESS -2.2 mmol/L (-2.0-2.0); ABG O2 SATURATION 97.9 % (95-97); ARTERIAL BLOOD GAS PCO2 37.7 mmHg (35-45); ARTERIAL BLOOD GAS PH 7.383 (7.35-7.45)
--- NOTE | 2018-03-31 10:30 | NUR ---
DR. GALDAMEZ NOTIFIED OF ARTERIAL BLOOD GAS RESULTS. NO NEW ORDERS AT THIS TIME.
[2018-03-31 12:00] VITALS: BP 159/99
[2018-03-31 16:00] VITALS: BP 121/86
[2018-03-31 20:00] VITALS: BP 137/94
[2018-04-01] VITALS: BP 145/97
[2018-04-01 08:00] VITALS: BP 146/92
--- NOTE | 2018-04-01 09:42 | NUR ---
Scheduled [place] given for chronic back/shoulder pain rated 7/10.
--- NOTE | 2018-04-01 09:59 | NUR ---
Per patient request assessed SpO2 on RA. He maintained 96% with HR 96-103. Placed patient on 1.5L for maintainence because he is going to sleep. Will monitor.
--- NOTE | 2018-04-01 10:30 | NUR ---
[place] effective. Patient rates pain 5/10 and is satisfied.
[2018-04-01 12:00] VITALS: BP 144/90
--- NOTE | 2018-04-01 13:00 | NUR ---
Reassessed patients HR 104. Per respiratory therapy HR was 112 prior to breathing treatment. He had visitors at the time and was laughing etc. Will continue to monitor.
--- NOTE | 2018-04-01 13:40 | NUR ---
Scheduled [place] given for chronic back pain. Will monitor.
--- NOTE | 2018-04-01 14:15 | NUR ---
[place] effective. Patient satisfied.
[2018-04-01 16:00] VITALS: BP 149/91
--- NOTE | 2018-04-01 17:35 | NUR ---
Scheduled [place] given for chronic back,hip,and shoulder pain. Will monitor.
--- NOTE | 2018-04-01 18:25 | NUR ---
[place] effective. Pain is slowly going down but not at 4/10 yet.
[2018-04-01 20:00] VITALS: BP 168/106
[2018-04-01 21:30] VITALS: BP 160/90
--- NOTE | 2018-04-01 23:06 | NUR ---
CHART CHECK COMPLETED.
[2018-04-02] VITALS: BP 158/84
--- NOTE | 2018-04-02 07:15 | NUR ---
BEDSIDE REPORT OBTAINED FROM SERGIO-MANUELA. PATIENT IS AWAKE AND ALERT, VOICED NO COMPLAINTS AT THIS TIME. NO S&S OF DISTRESS NOTED, RESP ARE AUDIBLE WHEEZING PRESENT AND HARSH COUGH. O2 3LPM NC IN PLACE. BED IS LOCKED IN LOWEST POSITION, CALL LIGHT LEFT WITHIN REACH.
[2018-04-02 07:58] VITALS: BP 144/80
--- NOTE | 2018-04-02 08:30 | NUR ---
Campground Manager in to see patient. No new needs or request at this time. He denies any home needs. Discussed palliative care and he refuses at this time. When medically stable he will be discharged to home.
[2018-04-02 16:00] VITALS: BP 150/92
--- NOTE | 2018-04-02 18:00 | NUR ---
Hep Lock discontinued TO LEFT HAND. Site symptomatic, OCCLUDED. Pressure applied. Sterile dressing applied. SHANA WHITLOCK
--- NOTE | 2018-04-02 18:05 | NUR ---
IV started right antecubital with #22 angiocath after 0 attempts. The IV site was prepped with Chloraprep. Heparin lock attached. Sterile dressing applied. Patient tolerated precedure well. Procedure performed according to [facility] policy & procedure. SHANA WHITLOCK
--- NOTE | 2018-04-02 19:08 | NUR ---
PATIENT SITTING UP IN BED WATCHING TV. NO NEEDS OR CONCERNS AT THIS TIME. ACTIVELY PARTICIPATES IN REPORT. BED IS IN LOWEST POSTIION WITH WHEELS LOCKED. CALL LIGHT IS WITHIN REACH. 3L O2 NC IN USE. ENCOURAGED TO USE CALL LIGHT FOR NEEDS. WILL MONITOR.
[2018-04-02 20:00] VITALS: BP 143/86
[2018-04-03] VITALS: BP 132/86
[2018-04-03 06:29] LABS: BASO % 0.2 % (0.0-1.0); HEMATOCRIT 39.4 % (42.0-52.0); HEMOGLOBIN 12.8 g/dl (14.0-18.0); LYMPH # 0.4 10*3/uL (1.3-4.4); LYMPH % 4.4 % (27.0-41.0); MEAN CELL VOLUME 94.9 fl (80.0-94.0); MEAN CORPUSCULAR HGB 30.8 pg (27.0-31.0); MEAN CORPUSCULAR HGB CONC 32.5 g/dl (33.0-37.0); MEAN PLATELET VOLUME 9.9 fl (9.6-12.3); MONO # 0.7 10*3/uL (0.1-1.0); MONO % 6.8 % (3.0-9.0); NEUT # 8.3 10*3/uL (2.3-7.9); NEUT % 86.4 % (47.0-73.0); PLATELET COUNT AUTOMATED 233 10*3/uL (130-400); RED BLOOD COUNT 4.15 10*6/uL (4.50-5.90); RED CELL DISTRI WIDTH 14.6 % (0-14.5); WHITE BLOOD COUNT 9.6 10*3/uL (4.8-10.8)
[2018-04-03 07:00] LABS: BUN 18 mg/dl (7-24); CHLORIDE 104 mmol/L (98-107); CREATININE 0.83 mg/dL (0.70-1.30); POTASSIUM 4.1 mmol/L (3.5-5.1); SODIUM 139 mmol/L (136-145)
[2018-04-03 08:00] VITALS: BP 170/95
--- NOTE | 2018-04-03 08:30 | NUR ---
Mattress [employer] Supervisor in to see patient. No new needs or request at this time. He denies any home needs. When medically stable he will be discharged to home.
[2018-04-03 12:00] VITALS: BP 167/98
[2018-04-03 16:00] VITALS: BP 155/86
--- NOTE | 2018-04-03 19:38 | NUR ---
PATIENT RESTING IN BED WATCHING TV AT THIS TIME RECIEVING BREATHING TREATMENT. DENIES ANY NEEDS OR CONCERNS. BED IS IN LOWEST POSITION WITH WHEELS LOCKED. CALL LIGHT IS WITHIN REACH. WILL CONTINUE TO MONITOR.
[2018-04-03 20:00] VITALS: BP 141/87
[2018-04-04] VITALS: BP 150/86
[2018-04-04 08:00] VITALS: BP 149/99
--- NOTE | 2018-04-04 11:00 | NUR ---
RN CALLED INTO ROOM BY PATIENT. IV SITE IN THE RIGHT ANTECUBITAL HAD INFILTRATED. PATIENT DENIES ANY PAIN AT THIS TIME TO THE SITE. MILD SWELLING.IV DISCONTINUED AT THIS TIME. MINIMAL BLEEDING. DRY STERILE DRESSING APPLIED. RN WILL CONTINUE TO MONITOR
--- NOTE | 2018-04-04 11:05 | NUR ---
IV started left antecubital with # protective cath after 1 attempts. Site prepped with Chloroprep. Sterile dressing applied. Patient tolerated procedure well. NAEEM LOPEZ
[2018-04-04 12:37] VITALS: BP 152/84
[2018-04-04 16:00] VITALS: BP 153/88
[2018-04-04 20:00] VITALS: BP 167/100
[2018-04-05] VITALS: BP 159/97
--- NOTE | 2018-04-05 01:49 | NUR ---
24 HR chart check completed.
--- NOTE | 2018-04-05 04:00 | NUR ---
PATIENT RESTING IN BED WITH EYES CLOSED. NO SIGNS OR SYMPTOMS OF DISTRESS NOTED. AROUSES TO VERBAL STIMULI. DENIES COMPLAINTS OF PAIN OR DISCOMFORT. RESPIRATION REGULAR AND NON-LABORED ON ROOM AIR. WILL CONTINUE TO MONITOR. CALL LIGHT IN REACH.
--- NOTE | 2018-04-05 07:00 | NUR ---
BEDSIDE REPORT OBTAINED FROM BETITO-MANUELA. PATIENT APPEARS TO BE ASLEEP, EYES CLOSED. NO S&S OF DISTRESS NOTED, RESP ARE ERND ON ROOM AIR. BED IS LOCKED IN LOWEST POSITION, CALL LIGHT LEFT WITHIN REACH.
[2018-04-05 08:00] VITALS: BP 158/90; BP 172/90
[2018-04-05 12:00] VITALS: BP 142/84; BP 156/98
[2018-04-05 16:00] VITALS: BP 160/78
[2018-04-05 20:00] VITALS: BP 158/92
--- NOTE | 2018-04-05 21:47 | NUR ---
DR. DICKSON NOTIFIED ABOUT PATIENT'S NORCO HAVING AN AUTOMATIC D/C OF THIS AM AT 10AM AND PATIENT REQUESTING IT. NEW ORDER TO RESTART THE MEDICATION ORDER.
[2018-04-06] VITALS: BP 163/88
--- NOTE | 2018-04-06 00:56 | NUR ---
24 HR chart check completed.
--- NOTE | 2018-04-06 01:26 | NUR ---
PATIENT IN BED SLEEPING AT THIS TIME. NO SIGNS OR SYMPTOMS OF DISTRESS NOTED. RESPIRATIONS REGULAR AND NON-LABORED ON ROOM AIR. AROUSES TO VERBAL STIMULI. DENIES COMPLAINTS OF PAIN OR DISCOMFORT. WILL CONTINUE TO MONITOR. CALL LIGHT IN REACH.
[2018-04-06 07:00] LABS: BUN 21 mg/dl (7-24); CREATININE 0.63 mg/dL (0.70-1.30)
--- NOTE | 2018-04-06 07:15 | NUR ---
BEDSIDE REPORT OBTAINED FROM BETITO-MANUELA. PATIENT APPEARS TO BE ALSEEP, EYES CLOSED. NO S&S OF DISTRESS NOTED, RESP ARE ERND ON ROOM AIR. BED IS LOCKED IN LOWEST POSITION. CALL LIGHT LEFT WIHTIN REACH.
[2018-04-06 08:00] VITALS: BP 158/86
[2018-04-06 12:00] VITALS: BP 152/90
[2018-04-06 16:00] VITALS: BP 150/88; BP 159/94
[2018-04-06 20:00] VITALS: BP 152/92
--- NOTE | 2018-04-06 20:15 | NUR ---
PT RESTING IN BED. RESP-EASY AND REGULAR. NO C/O AT THIS TIME. VISITOR AT HIS SIDE. CALL LIGHT IN REACH.
--- NOTE | 2018-04-06 21:25 | NUR ---
PT RESTING IN BED. TOLERATED ROUTINE MED WITH NO PROBLEM. NO C/O AT THIS TIME. CALL LIGHT IN REACH.
--- NOTE | 2018-04-06 21:59 | NUR ---
CALLED DR. SIDHU MADE AWARE OF CONSULT. NO NEW ORDERS.
--- NOTE | 2018-04-06 23:05 | NUR ---
PT RESTING IN BED. MEDICATED WITH ROUTINE NORCO PO PER ORDER, SEE MAR. FOR C/O LOWER BACK PAIN, RATES PAIN 9 ON PAIN SCALE 0-10. TOLERATED ROUTINE IV MEDICATION. CALL LIGHT IN REACH. SEE SHIFT ASSESSMENT.
[2018-04-07] VITALS (8 sets, daily range): BP systolic 154–176; BP diastolic 90–110
--- NOTE | 2018-04-07 00:30 | NUR ---
RESTING IN BED. STATES PAIN MEDICATION HELPS. CALL LIGHT IN REACH.
--- NOTE | 2018-04-07 04:00 | NUR ---
RESTING IN BED WITH EYES CLOSED. RESP-EASY AND REGULAR. CALL LIGHT IN REACH.
--- NOTE | 2018-04-07 05:30 | NUR ---
PT RESTING IN BED. C/O LOWER BACK PAIN, RATES PAIN 9 ON PAIN SCALE 0-10. MEDICATED WITH NORCO PO PER PRN ORDER, SEE EMAR. CALL LIGHT IN REACH.
--- NOTE | 2018-04-07 06:30 | NUR ---
RESTING IN BED. RESP-EASY AND REGULAR. MEDICATION HELP SOME WITH PAIN. CALL LIGHT IN REACH.
--- NOTE | 2018-04-07 09:40 | NUR ---
MADE AWARE OF HIGH MANUAL AM=[phone]/110. STATES TO GIVE MORNING BLOOD PRESSURE PILL AND RECHECK IN 2 HR. IF NO IMPROVEMENT TO CALL BACK.
--- NOTE | 2018-04-07 12:32 | NUR ---
ATTEMPT TO CALL ON REGARD TO UY=515/100. WILL TRY AGAIN.
--- NOTE | 2018-04-07 13:10 | NUR ---
INFORMED OF GJ=114/100 MANUAL. STATES THAT ITS FINE FOR NOW, NO NEW ORDERS.
--- NOTE | 2018-04-07 14:00 | NUR ---
PATIENT/FAMILY CONCERNS & QUESTIONS ADDRESSED. AT BEDSIDE, DISCUSSION OF DOING BRONCH ON SATURDAY.
[2018-04-07 15:33] LABS: ABG BASE EXCESS 2.5 mmol/L (-2.0-2.0); ABG HCO3 25.4 mmol/l (22-26); ABG O2 SATURATION 96.5 % (95-97); ARTERIAL BLOOD GAS PCO2 35.3 mmHg (35-45); ARTERIAL BLOOD GAS PH 7.47 (7.35-7.45); ARTERIAL BLOOD GAS PO2 82.4 mmHg (80-90)
--- NOTE | 2018-04-07 16:09 | NUR ---
VINCE HAD ABG DRAWN PER DR MATOS ORDER. FLUTTER AND INCENTIVE SPIROMETRY HAVE INSTRUCTED AND DEMOSTRATED.
--- NOTE | 2018-04-07 19:12 | NUR ---
PATIENT RESTING IN BED AT THIS TIME. DENIES ANY NEEDS OR COMPLAINTS. BED IS IN LOWEST POSITION WITH WHEELS LOCKED. CALL LIGHT IS WITHIN REACH. ENCOURAGED TO USE CALL LIGHT FOR NEEDS. WILL MONITOR.
[2018-04-08] VITALS: BP 176/94
[2018-04-08 00:38] VITALS: BP 158/96
--- NOTE | 2018-04-08 02:23 | NUR ---
PATIENT RESTING IN BED WITH EYES CLOSED. RESPIRATIONS ARE EASY AND REGULAR. NO DISTRESS IS NOTED. CALL LIGHT IS WITHIN REACH. WILL CONTINUE TO MONITOR.
--- NOTE | 2018-04-08 07:25 | NUR ---
BEDSIDE REPORT OBTAINED FROM ALFREDA. PATIENT APPEARS TO BE ASLEEP, EYES CLOSED. NO S&S OF DISTRESS NOTED, RESP ARE ERND ON ROOM AIR. BED IS LOCKED IN LOWEST POSITION. CALL LIGHT LEFT WITHIN REACH.
[2018-04-08 08:00] VITALS: BP 148/88; BP 153/94
[2018-04-08 12:00] VITALS: BP 137/95
[2018-04-08 16:00] VITALS: BP 155/88
[2018-04-08 20:00] VITALS: BP 151/81
--- NOTE | 2018-04-08 20:47 | NUR ---
24 HR chart check completed.
--- NOTE | 2018-04-08 21:00 | NUR ---
UP IN RECLINER WATCHING TV. RESPIREATIONS EASY. LUNGS DIMINISHED WITH EXP WHEEZES. PULSE OX 93% RA. CLAIMS OCCASIONAL COUGH PROD FOR YELLOW. CALL LIGHT WITHIN REACH. NO VOICED COMPLAINTS
--- NOTE | 2018-04-08 22:37 | NUR ---
REQUESTED AND RECEIVED NORCO PER PRN ORDER FOR COMPLAINTS OF LOWER BACK PAIN RATING AN 8. CALL LIGHT WITHIN REACH. WILL MONITOR FOR EFFECTIVENESS
[2018-04-09] VITALS (8 sets, daily range): BP systolic 141–186; BP diastolic 83–116
--- NOTE | 2018-04-09 | NUR ---
LYNN EFFECTIVE. SLEEPING. RESPIRATIONS EASY. CALL LIGHT WITHIN REACH
--- NOTE | 2018-04-09 02:00 | NUR ---
SLEEPING IN RECLINER
--- NOTE | 2018-04-09 03:53 | NUR ---
REQUESTED AND RECEIVED NORCO PER PRN ORDER WITH SIP OF WATER FOR COMPLAINTS OF LOWER BACK PAIN RATING A 6. CALL LIGHT WITHIN REACH. WILL MONITOR FOR EFFECTIVENESS
--- NOTE | 2018-04-09 06:00 | NUR ---
NPO STATUS MAINTAINED FOR BRONCH
--- NOTE | 2018-04-09 07:30 | NUR ---
PT RESTING IN BED. NO DISTRESS NOTED. FAMILY AT BEDSIDE PT TO SURGERY VIA BED.
--- NOTE | 2018-04-09 09:00 | NUR ---
Signal Apprentice in to see patient. No new needs or request at this time. He denies any home needs. When medically stable he will be discharged to home.
--- NOTE | 2018-04-09 12:05 | NUR ---
PT REQUESTED AND GIVEN NORCO FOR C/O BACK PAIN PT RATES PAIN 11/15 WILL MONITOR CALL LIGHT WITHIN REACH
--- NOTE | 2018-04-09 14:34 | NUR ---
PT SITTING UP IN CAHIR. NORCO EFECTIVE WILL MONITOR
--- NOTE | 2018-04-09 17:47 | NUR ---
C/O BACK PAIN AND SPASMS, REQUESTS PAIN MEDICATION. MEDICATED WITH NORCO PER PRN ORDER.
[2018-04-10] VITALS: BP 136/77
--- NOTE | 2018-04-10 06:26 | NUR ---
Requested and medicated with Allen at 2311 for complaints of back spasm, rated as a 10/10. Allen effective to decrease pain and allow to rest quietly. Requested and medicated with Allen at 0620 for complaints of back spasms, rating pain an 8/10. Will continue to monitor.
[2018-04-10 06:41] LABS: BUN 27 mg/dl (7-24); CREATININE 0.72 mg/dL (0.70-1.30)
[2018-04-10 08:00] VITALS: BP 145/93
[2018-04-10] MEDS ORDERED: LEVAQUIN750 M1 PO (08:45)
[2018-04-10] MEDS ORDERED: DILTIAZEM CD240 MG PO (08:45)
[2018-04-10] MEDS ORDERED: PULMICORT RESP0.5 MG NEB (08:45)
[2018-04-10] MEDS ORDERED: MONTELUKAST SOD10 MG PO (08:45)
[2018-04-10] MEDS ORDERED: PREDNISONE5 MG PO (08:46)
--- NOTE | 2018-04-10 09:31 | NUR ---
VALIUM GIVEN ORDERED FOR MRI
--- NOTE | 2018-04-10 12:00 | NUR ---
PT REQUESTED AND GIVEN NORCO FOR C/O BACK PAIN . PT RATES PAIN 9/10 WILL MONITOR
--- NOTE | 2018-04-10 12:17 | NUR ---
Discharge instructions reviewed with patient/family. Patient receptive and verbalizes understanding. Follow-up care arranged. Written instructions given to patient/family. KALLIE JOHNSON
[2018-04-10 13:02] LABS: ACID FAST SPEC PROCESSING Concentration (.)
[2018-05-01 19:06] LABS: ACID FAST CULTURE Positive (.); M AVIUM COMPLEX Positive (.); M GORDONAE Not Indicated (.); M KANSASII Not Indicated (.); M TUBERCULOSIS COMPLEX Negative (.)
[2018-05-14 12:08] LABS: ORGANISM ID, MOLD Final report (.); RESULT 1 Final Identification (.)
== END 2018-04-10 12:17 | disposition home or self-care (01) | DRG 177 ==
LOC: ED 11:43 → EDHOLD 12:35 → 5E 12:35
PROVIDERS: Internal Medicine Critical Care Medicine; Nurse Practitioner Family; ADMIT Internal Medicine
DX: J15.6 Pneumonia due to other Gram-negative bacteria (principal); J96.20 Acute and chronic respiratory failure, unspecified whether with hypoxia or hypercapnia; J44.1 Chronic obstructive pulmonary disease with (acute) exacerbation; J44.0 Chronic obstructive pulmonary disease with (acute) lower respiratory infection; M48.54XA Collapsed vertebra, not elsewhere classified, thoracic region, initial encounter for fracture; T17.590A Other foreign object in bronchus causing asphyxiation, initial encounter; Z96.643 Presence of artificial hip joint, bilateral; X58.XXXA Exposure to other specified factors, initial encounter; J20.9 Acute bronchitis, unspecified; J45.50 Severe persistent asthma, uncomplicated; K44.9 Diaphragmatic hernia without obstruction or gangrene; F41.1 Generalized anxiety disorder; M06.9 Rheumatoid arthritis, unspecified; E66.9 Obesity, unspecified; R62.7 Adult failure to thrive; Z79.82 Long term (current) use of aspirin; Z88.5 Allergy status to narcotic agent; Z79.899 Other long term (current) drug therapy; Z87.440 Personal history of urinary (tract) infections; Z83.3 Family history of diabetes mellitus; Z82.49 Family history of ischemic heart disease and other diseases of the circulatory system; Z80.9 Family history of malignant neoplasm, unspecified; Z99.81 Dependence on supplemental oxygen; Y93.89 Activity, other specified; Y92.89 Other specified places as the place of occurrence of the external cause; Y99.8 Other external cause status; Z68.25 Body mass index [BMI] 25.0-25.9, adult

== ENCOUNTER 2018-12-28 13:24 | Emergency (ER) | payer OTHER ==
[~2018-12-28] VITALS: Ht 172.7 cm; Wt 72.6 kg
--- NOTE | ~2018-12-28 | EKG ---
[place], [place] ELECTROCARDIOGRAM REPORT NAME: DALI EVANS UNIT #: [id number] ROOM: DOCTOR: WALLY DRAFT REPORT BIRTHDATE: [birth year] [facility] Test Date: 2018-12-28 Test Time: 14:35:49 Pat Name: DALI EVANS Department: Room: Gender: M Lead Front End Developer: SS RESP : 1955 Requested By: ALANNA GOLDEN Order Number: [id number] Reading MD: Nayla Bliss MD Measurements Intervals Elizabeth Rate: 91 P: 39 WV: 153 QRS: -1 QRSD: 77 T: 21 QT: 345 QTc: 425 Interpretive Statements Sinus rhythm Borderline T abnormalities, inferior leads Baseline wander in lead(s) II,III,aVF Compared to ECG 03/29/2018 12:22:03 T-wave abnormality now present Sinus tachycardia no longer present ST (T wave) deviation no longer present Electronically Signed On 12-29-2018 14:33:32 PDT by Nayla Bliss MD CM:EKGRPT:ELECTROCARDIOGRAM REPORT [id number] ALANNA PRIDE DRAFT REPORT ALANNA GOLDEN DO
[~2018-12-28 13:24] MED LIST changes: +DILTIAZEM CD240 MG PO; +LEVAQUIN750 M1 PO; +MONTELUKAST SOD10 MG PO; +PREDNISONE5 MG PO; +PULMICORT RESP0.5 MG NEB
[2018-12-28 13:28] VITALS: BP 136/74
[2018-12-28 14:27] LABS: BASO # 0.1 10*3/uL (0.0-0.1); BASO % 0.7 % (0.0-1.0); EOS # 0.6 10*3/uL (0.0-0.4); EOS % 6.5 % (1.0-4.0); HEMATOCRIT 45.1 % (42.0-52.0); HEMOGLOBIN 14.9 g/dl (14.0-18.0); LYMPH % 11.3 % (27.0-41.0); MEAN CELL VOLUME 91.9 fl (80.0-94.0); MEAN CORPUSCULAR HGB 30.3 pg (27.0-31.0); MEAN PLATELET VOLUME 9.3 fl (9.6-12.3); MONO # 1.1 10*3/uL (0.1-1.0); NEUT # 6.2 10*3/uL (2.3-7.9); NEUT % 69.3 % (47.0-73.0); PLATELET COUNT AUTOMATED 306 10*3/uL (130-400); RED BLOOD COUNT 4.91 10*6/uL (4.50-5.90); RED CELL DISTRI WIDTH 15.4 % (0-14.5); WHITE BLOOD COUNT 8.9 10*3/uL (4.8-10.8)
[2018-12-28 14:45] LABS: ALBUMIN 3.8 gm/dl (3.1-4.5); ALKALINE PHOSPHATASE 96 U/L (45-117); BUN 12 mg/dl (7-24); CHLORIDE 106 mmol/L (98-107); CREATININE 0.91 mg/dL (0.70-1.30); POTASSIUM 3.7 mmol/L (3.5-5.1); SGOT/AST 11 IU/L (3-35); SGPT/ALT 16 U/L (12-78); SODIUM 136 mmol/L (136-145); TOTAL PROTEIN 7.3 gm/dL (6.4-8.2); TROPONIN I < 0.015 ng/ml (<0.045)
[2018-12-28] MEDS ORDERED: VIBRAMYCIN100 MG PO (15:10)
[2018-12-28] MEDS ORDERED: PREDNISONE50 MG PO (15:10)
== END 2018-12-28 15:23 | disposition home or self-care (01) ==
LOC: ED 13:24
PROVIDERS: Family Medicine
DX: J44.1 Chronic obstructive pulmonary disease with (acute) exacerbation (principal); Z79.899 Other long term (current) drug therapy; Z79.82 Long term (current) use of aspirin; Z88.6 Allergy status to analgesic agent

== ENCOUNTER → 2019-02-03 | Outpatient (CLI) | payer OTHER ==
[~2019-02-03] MED LIST changes: +PREDNISONE50 MG PO
== END | disposition home or self-care (01) ==
LOC: LAB 13:20
DX: R05 Cough (principal)

== ENCOUNTER 2019-02-12 10:21 | Inpatient (IN) | payer OTHER ==
[~2019-02-12] VITALS: Ht 173 cm; Wt 74.6 kg
[2019-02-12 10:23] VITALS: BP 146/102
[2019-02-12 10:52] LABS: HEMATOCRIT 45.4 % (42.0-52.0); HEMOGLOBIN 15.2 g/dl (14.0-18.0); MEAN CELL VOLUME 90.8 fl (80.0-94.0); MEAN CORPUSCULAR HGB 30.4 pg (27.0-31.0); MEAN CORPUSCULAR HGB CONC 33.5 g/dl (33.0-37.0); MEAN PLATELET VOLUME 9.3 fl (9.6-12.3); PLATELET COUNT AUTOMATED 281 10*3/uL (130-400); RED CELL DISTRI WIDTH 15.5 % (0-14.5); WHITE BLOOD COUNT 10.8 10*3/uL (4.8-10.8)
[2019-02-12 11:02] LABS: ACT PARTIAL THROMBO TIME 25.4 SECONDS (20.0-32.1); INTERNATIONAL NORM RATIO 0.9 (2.0-3.5)
[2019-02-12 11:08] LABS: ALBUMIN 3.7 gm/dl (3.1-4.5); ALKALINE PHOSPHATASE 82 U/L (45-117); BUN 24 mg/dl (7-24); CHLORIDE 104 mmol/L (98-107); CREATININE 0.88 mg/dL (0.70-1.30); POTASSIUM 4.3 mmol/L (3.5-5.1); SGOT/AST 20 IU/L (3-35); SGPT/ALT 24 U/L (12-78); SODIUM 137 mmol/L (136-145); TOTAL PROTEIN 7.1 gm/dL (6.4-8.2)
[2019-02-12 11:13] LABS: TOTAL CELLS COUNTED 100 #CELLS; TROPONIN I < 0.015 ng/ml (<0.045)
[2019-02-12 11:14] LABS: PLATELET SUFFICIENCY NORMAL (NORMAL)
[2019-02-12 12:02] VITALS: BP 137/98
[2019-02-12 12:33] VITALS: BP 146/74
--- NOTE | 2019-02-12 12:45 | NUR ---
A 63, admitted to , under the services of YU Bryant MD with a diagnosis of COPD EXACERBATION. Chief complaint is FAILURE OUTPATIENT THERAPY FOR COPD. Patient arrived via ambulatory from ER. Monitor applied. Initial assessment completed. Vital signs taken and recorded. YU BRYANT MD notified of admission to the unit. Orders received. See assessment for past medical history, medications and allergies. Patient and/or family oriented to unit. [facility] visitation policy reviewed. Clothing/patient valuable form completed. CANDICE CHING
--- NOTE | 2019-02-12 12:52 | NUR ---
MED REC UPDATED VIA HOME MED LIST.
--- NOTE | 2019-02-12 13:17 | NUR ---
ATTEMPTED TO CALL FOR ADMISSION ORDERS. NO ANSWER. WILL TRY AGAIN.
--- NOTE | 2019-02-12 13:23 | NUR ---
CALLED BACK WITH ADMISSION ORDERS. SEE MAR AND CONSULT ORDER.
--- NOTE | 2019-02-12 14:28 | NUR ---
DIPAK NOTIFIED OF NEW CONSULT. ORDERED TO INCREASE SOLUMEDROL TO 40MG TID. SEE MAR.
[2019-02-12 16:00] VITALS: BP 150/78
[2019-02-12 20:00] VITALS: BP 153/78
--- NOTE | 2019-02-12 20:00 | NUR ---
24 HOUR CHART CHECK COMPLETE.
--- NOTE | 2019-02-12 21:15 | NUR ---
PRN NORCO ADMINISTERED AT THIS TIME FOR PT C/O CHRONIC BACK PAIN RATED A 5/10 ON THE PAIN SCALE. WILL CONTINUE TO MONITOR AND REASSESS. NO OTHER COMPLAINTS AT THIS TIME.
--- NOTE | 2019-02-12 22:00 | NUR ---
PT STATES THAT PAIN HAS BEEN RELIEVED AND WOULD RATE IT A 3/10 AFTER NORCO ADMINISTRATION. WILL CONTINUE TO MONITOR.
[2019-02-13] VITALS: BP 146/93
--- NOTE | 2019-02-13 05:15 | NUR ---
PRN NORCO ADMINISTERED FOR PT C/O CHRONIC BACK PAIN RATED AN 8/10 ON THE PAIN SCALE. WILL CONTINUE TO MONITOR.
[2019-02-13 08:00] VITALS: BP 138/90
--- NOTE | 2019-02-13 09:00 | NUR ---
Relocation Manager in to talk to patient. Patient states lives at home with his . There are 0 steps in the home. Physician: Dr. Agustina Salvador Pharmacy: [facility] Home health services: none Patient's level of ADLs: INDEPENDENT Patient has working utilities: yes DME: cane, walker, nebulizer Follow-up physician's appointment after d/c: she prefers to make her own follow up appt after discharge Does patient want to access PORTAL?: no Discharge plan discussed with patient. He lives at home with his . He is independent in his ADLs and ambulation. He states he has a walker and a cane when he has problems with his back but has not had to use them currently. When medically stable he will be discharged to home. His will provide transportation on discharge. GUNNAR COPPOLA
[2019-02-13 12:00] VITALS: BP 127/86
[2019-02-13 16:00] VITALS: BP 136/75
[2019-02-13 20:00] VITALS: BP 135/76
--- NOTE | 2019-02-13 20:00 | NUR ---
24 HOUR CHART CHECK COMPLETE.
--- NOTE | 2019-02-13 21:02 | NUR ---
ROSEANNE BAILEY AND REYNA ADMINISTERED FOR PT C/O 09/15 CHRONIC BACK PAIN AND TROUBLE SLEEPING. WILL CONTINUE TO MONITOR AND REASSESS. NO OTHER COMPLAINTS AT THIS TIME. CALL LIGHT IN REACH.
--- NOTE | 2019-02-13 22:00 | NUR ---
PT ASLEEP AT THIS TIME. RESPIRATIONS ERND. WILL CONTINUE TO MONITOR.
[2019-02-14] VITALS: BP 124/85
--- NOTE | 2019-02-14 03:54 | NUR ---
PRN NORCO ADMINISTERED AT THIS TIME FOR PT C/O CHRONIC BACK PAIN RATED A 7/10. WILL CONTINUE TO MONITOR.
--- NOTE | 2019-02-14 04:45 | NUR ---
PT RATES PAIN A 3/10 AT THIS TIME. STATES THE NORCO WAS EFFECTIVE.
[2019-02-14 08:00] VITALS: BP 130/80; BP 140/74
--- NOTE | 2019-02-14 10:55 | NUR ---
LYNN FOR RIB PAIN FROM COUGHING
[2019-02-14 12:00] VITALS: BP 134/80
[2019-02-14 16:00] VITALS: BP 128/81
[2019-02-14 20:00] VITALS: BP 136/70
--- NOTE | 2019-02-14 22:29 | NUR ---
PATIENT MEDICATED WITH NORCO FOR COMPLAINTS OF BACK AND RIB PAIN. RESPIRATIONS REGULAR AND NON-LABORED. VITAL SIGNS STABLE. PATIENT GETS SOB WITH EXERTION. AMBULATES HALLS PER SELF. WILL CONTINUE TO MONITOR. CALL LIGHT IN REACH.
[2019-02-15] VITALS: BP 136/67
--- NOTE | 2019-02-15 07:13 | NUR ---
24 HR chart check completed.
[2019-02-15 08:00] VITALS: BP 136/78
--- NOTE | 2019-02-15 09:01 | NUR ---
RESTING IN BED WATCHING TV. RESPIRATIONS EASY. LUNGS DIMINISHED WITH I&E WHEEZES R>L. PULSE OX 94% RA. LOOSE COUGH NOTED. REQUESTED AND RECEIVED NORCO PER PRN ORDER FOR COMPLAINTS OF MID-LOW BACK PAIN RATING A 7. CALL LIGHT WITHIN REACH. WILL MONITOR FOR EFFECTIVENESS
--- NOTE | 2019-02-15 11:00 | NUR ---
STATES RELIEF FROM EARLIER MEDS. RESTING IN BED WATCHING TV. NO DISTRESS NOTED. RESPIRATIONS EASY. CALL LIGHT WITHIN REACH. NO FURTHER VOICED COMPLAINTS
[2019-02-15 12:00] VITALS: BP 128/79
--- NOTE | 2019-02-15 14:13 | NUR ---
SITTING AT BEDSIDE EATING. RESPIRATIONS EASY. REQUESTED AND RECEIVED NORCO PER PRN ORDER FOR COMPLAINTS OF MID TO LOW BACK PAIN RATING A 7. CALL LIGHT WITHIN REACH. WILL MONITOR FOR EFFECTIVENESS
[2019-02-15 16:00] VITALS: BP 143/84
--- NOTE | 2019-02-15 16:00 | NUR ---
RESTING IN BED WITH NO ACUTE DISTRESS NOTED. RESPIRATIONS EASY. VSS. CALL LIGHT WITHIN REACH. NO FURTHER VOICED COMPLAINTS
[2019-02-15 20:00] VITALS: BP 149/82
--- NOTE | 2019-02-15 22:00 | NUR ---
PATIENT MEDICATED WITH NORCO FOR COMPLAINTS OF BACK AND RIB PAIN. RESPIRATIONS REGULAR AND NON-LABORED ON ROOM AIR. I&E WHEEZES NOTED BILATERALLY. PATIENT HAS A LOOS NON-PRODUCTIVE COUGH. PATIENT IS NPO AT MIDNIGHT FOR BRONCH IN AM. AMBULATED PER SELF TO BATHROOM AND HALLWAY. NO SIGNS OR SYMPTOMS OF DISTRESS NOTED. WILL CONTINUE TO MONITOR. CALL LIGHT IN REACH.
[2019-02-16] VITALS (9 sets, daily range): BP systolic 128–152; BP diastolic 75–90
--- NOTE | 2019-02-16 01:18 | NUR ---
24 HR chart check completed.
[2019-02-16 05:53] LABS: HEMATOCRIT 42.2 % (42.0-52.0); LYMPH # 0.6 10*3/uL (1.3-4.4); LYMPH % 5.2 % (27.0-41.0); MEAN CELL VOLUME 91.9 fl (80.0-94.0); MEAN CORPUSCULAR HGB 30.5 pg (27.0-31.0); MEAN CORPUSCULAR HGB CONC 33.2 g/dl (33.0-37.0); MEAN PLATELET VOLUME 9.5 fl (9.6-12.3); MONO # 0.4 10*3/uL (0.1-1.0); MONO % 3.6 % (3.0-9.0); NEUT # 9.7 10*3/uL (2.3-7.9); NEUT % 89.5 % (47.0-73.0); PLATELET COUNT AUTOMATED 300 10*3/uL (130-400); RED BLOOD COUNT 4.59 10*6/uL (4.50-5.90); RED CELL DISTRI WIDTH 15.5 % (0-14.5); WHITE BLOOD COUNT 10.8 10*3/uL (4.8-10.8)
[2019-02-16 06:12] LABS: ALKALINE PHOSPHATASE 63 U/L (45-117); BUN 27 mg/dl (7-24); CHLORIDE 106 mmol/L (98-107); CREATININE 0.92 mg/dL (0.70-1.30); POTASSIUM 4.3 mmol/L (3.5-5.1); SGOT/AST 16 IU/L (3-35); SGPT/ALT 28 U/L (12-78); SODIUM 139 mmol/L (136-145); TOTAL PROTEIN 5.9 gm/dL (6.4-8.2)
--- NOTE | 2019-02-16 07:00 | NUR ---
PT AWAKE. BEDSIDE REPORT RECEIVED FROM BETITO ROY.
--- NOTE | 2019-02-16 09:38 | NUR ---
PT RETURNED FROM SURGERY, VITALS WNL
--- NOTE | 2019-02-16 10:06 | NUR ---
ADMINISTERED PO NORCO PER PT REQUEST FOR BACK PAIN RATED 7/10. WILL MONITOR FOR EFFECTIVENESS. BED LOW. FAMILY AT THE BEDSIDE
--- NOTE | 2019-02-16 10:30 | NUR ---
Operation Shift Supervisor in to see patient. He is sitting up on the edge of his bed getting ready to eat breakfast. His is at the bedside. He states he had his bronchoscopy this morning. Discussed any home needs and he denies any home needs at this time. When medically stable he will be discharged to home.
--- NOTE | 2019-02-16 10:36 | NUR ---
Patient resting quietly with no c/o discomfort. Respirations easy and regular. Vital signs stable. No overt distress. ALFREDO BHAGAT
--- NOTE | 2019-02-16 11:23 | NUR ---
PT TOLERATED FULL LIQUID DIET S/P BRONCH. ADVANCED DIET TO REGULAR
--- NOTE | 2019-02-16 19:00 | NUR ---
REPORT RECEIVED FROM DAYLIGHT NURSE. PT IS AWAKE AND LYING IN BED. VOICES NO COMPLAINTS AT THIS TIME. CALL LIGHT IS IN REACH.
--- NOTE | 2019-02-16 21:12 | NUR ---
PT MEDICATED WITH NORCO PER ORDER FOR COMPLAINTS OF 8/10 BACK PAIN. WILL MONITOR EFFECTIVENESS
--- NOTE | 2019-02-16 22:30 | NUR ---
NORCO APPEARS EFFECTIVE. PT SLEEPING AT THIS TIME. CALL LIGHT IN REACH.
--- NOTE | 2019-02-16 23:00 | NUR ---
PT SLEEPING AT THIS TIME. RESPIRATIONS EASY AND UNLABORED. NO SIGNS OF DISTRESS. CALL LIGHT IN REACH.
[2019-02-17] VITALS: BP 141/80
--- NOTE | 2019-02-17 01:00 | NUR ---
PT SLEEPING AT THIS TIME. CALL LIGHT IN REACH
--- NOTE | 2019-02-17 05:00 | NUR ---
PT LYING IN BED SLEEPNG. RESPIRATIONS EASY AND UNLABORED. CALL LIGHT IN REACH.
--- NOTE | 2019-02-17 05:34 | NUR ---
PT MEDICATED WITH NORCO PER ORDER FOR COOMPLAINTS OF 9/10 BACK PAIN. WILL MONITOR EFFECTIVENESS.
[2019-02-17 08:00] VITALS: BP 148/88
--- NOTE | 2019-02-17 10:30 | NUR ---
Eligibility Manager in to see patient. He is sitting up in his bedside chair without distress noted reading the newspaper. Discussed home needs and he denies any home needs at this time. He states he might get to go home tomorrow as Dr. Salvador heard crackles in his lungs this morning. When medically stable he will be discharged to home.
[2019-02-17 12:00] VITALS: BP 145/68
[2019-02-17 16:00] VITALS: BP 124/63
[2019-02-17 17:06] LABS: ACID FAST SPEC PROCESSING Concentration (.)
--- NOTE | 2019-02-17 19:00 | NUR ---
REPORT RECEIVED FROM MARIANA ROY. PT AWAKE AND VOICES NO COMPLAINTS AT THIS TIME. CALL LIGHT IN REACH.
[2019-02-17 20:00] VITALS: BP 152/80
--- NOTE | 2019-02-17 20:00 | NUR ---
PATIENT ASSESSMENT COMPLETE WITHOUT INCIDENT, DENIES ANY CHEST PAIN OR SHORTNESS OF BREATH AT THIS TIME. CALL LIGHT WITHIN REACH WILL CONTINUE TO MONITOR
--- NOTE | 2019-02-17 21:11 | NUR ---
PT MEDICATED WITH NORCO PER ORDER FOR COMPLAINTS OF 8/10 BACK PAIN. WILL MONITOR EFFECTIVENESS.
--- NOTE | 2019-02-17 23:00 | NUR ---
24 HOUR CHART CHECK COMPLETED
--- NOTE | 2019-02-17 23:10 | NUR ---
PATIENT ASSESSED AT THIS TIME, SLEEPING BUT AROUSED EASILY. DENIES ANY CHEST PAIN/PRESSURE/SHORTNESS OF BREATH AT THIS TIME. CALL LIGHT WITHIN REACH WILL CONTINUE TO MONITOR.
[2019-02-18] VITALS: BP 129/87
--- NOTE | 2019-02-18 04:00 | NUR ---
PATIENT RESTING IN A POSITION OF COMFORT, RESPIRATIONS EASY AND NON-LABORED, EYES CLOSED. CALL LIGHT WITHIN REACH WILL CONTINUE TO MONITOR.
--- NOTE | 2019-02-18 05:32 | NUR ---
NORCO GIVEN AT THIS TIME FOR CHRONIC BACK PAIN A 7/10 ON THE PAIN SCALE. ALL OTHER MEDICATIONS SCHEDULED FOR THIS TIME GIVEN WITHOUT INCIDENT.
--- NOTE | 2019-02-18 09:00 | NUR ---
Residential Child Care Counselor in to see patient. No new needs or request at this time. He is laying in bed without distress noted. When medically stable he will be discharged to home. He states Dr. Salvador told him this morning the plan would be to discharge him tomorrow as there is a bug she wants to treat with IV antibiotics.
[2019-02-18 12:00] VITALS: BP 136/72
[2019-02-18 16:00] VITALS: BP 139/83
[2019-02-18 20:00] VITALS: BP 138/81
--- NOTE | 2019-02-18 20:00 | NUR ---
PATIENT SITTING UP IN BED, DENIES SHORTNESS OF BREATH, STATES THE STEROIDS HELPS WITH HIS CHRONIC BACK PAIN. DENIES ANY NEEDS AT THIS TIME. PATIENT LEFT WITH CALL LIGHT IN REACH.
--- NOTE | 2019-02-18 23:38 | NUR ---
24 HR chart check completed.
[2019-02-19] VITALS: BP 141/79
--- NOTE | 2019-02-19 03:35 | NUR ---
NORCO GIVEN FOR CHRONIC BACK PAIN. WILL MONITOR AND REASSESS.
--- NOTE | 2019-02-19 07:20 | NUR ---
PT AWAKE. REPORT RECEIVED FROM NEEL ROY. [facility] LOW
--- NOTE | 2019-02-19 07:59 | NUR ---
DR GALDAMEZ IN TO SEE PT. PT WILL BE DISCHARGED TODAY. ORDER TO ADMINISTER IV ROCEPHIN PRIOR TO DC.
[2019-02-19] MEDS ORDERED: PREDNISONE5 MG PO (08:15)
[2019-02-19] MEDS ORDERED: CIPRO500 MG PO (08:15)
--- NOTE | 2019-02-19 10:20 | NUR ---
PT AWAKE. ASSESSMENT COMPLETE. PT STATES HE WOULD LIKE TO STAY UNTIL HE RECEIVES HIS AFTERNOON DOSE OF IV SOLUMEDROL.
[2019-02-19 12:00] VITALS: BP 144/81
--- NOTE | 2019-02-19 14:33 | NUR ---
Discharge instructions reviewed with patient/family. Patient receptive and verbalizes understanding. Follow-up care arranged. Written instructions given to patient/family. ALFREDO BHAGAT
== END 2019-02-19 14:33 | disposition home or self-care (01) | DRG 189 ==
LOC: ED 10:21 → EDHOLD 11:52 → 4E 11:52
PROVIDERS: Emergency Medicine; Internal Medicine Critical Care Medicine; ADMIT Internal Medicine
PROC: 0BC88ZZ Extirpation of Matter from Left Upper Lobe Bronchus, Via Natural or Artificial Opening Endoscopic (ICD-10-PCS; principal; 2019-02-16)
PROC: 0BC18ZZ Extirpation of Matter from Trachea, Via Natural or Artificial Opening Endoscopic (ICD-10-PCS; principal; 2019-02-16)
PROC: 0BC78ZZ Extirpation of Matter from Left Main Bronchus, Via Natural or Artificial Opening Endoscopic (ICD-10-PCS; principal; 2019-02-16)
PROC: 0BC68ZZ Extirpation of Matter from Right Lower Lobe Bronchus, Via Natural or Artificial Opening Endoscopic (ICD-10-PCS; principal; 2019-02-16)
PROC: 0BC98ZZ Extirpation of Matter from Lingula Bronchus, Via Natural or Artificial Opening Endoscopic (ICD-10-PCS; principal; 2019-02-16)
PROC: 0BC58ZZ Extirpation of Matter from Right Middle Lobe Bronchus, Via Natural or Artificial Opening Endoscopic (ICD-10-PCS; principal; 2019-02-16)
PROC: 0BCB8ZZ Extirpation of Matter from Left Lower Lobe Bronchus, Via Natural or Artificial Opening Endoscopic (ICD-10-PCS; principal; 2019-02-16)
PROC: 0BC38ZZ Extirpation of Matter from Right Main Bronchus, Via Natural or Artificial Opening Endoscopic (ICD-10-PCS; principal; 2019-02-16)
PROC: 0BC48ZZ Extirpation of Matter from Right Upper Lobe Bronchus, Via Natural or Artificial Opening Endoscopic (ICD-10-PCS; principal; 2019-02-16)
DX: J96.20 Acute and chronic respiratory failure, unspecified whether with hypoxia or hypercapnia (principal); J44.0 Chronic obstructive pulmonary disease with (acute) lower respiratory infection; E44.1 Mild protein-calorie malnutrition; J45.51 Severe persistent asthma with (acute) exacerbation; J44.1 Chronic obstructive pulmonary disease with (acute) exacerbation; M06.9 Rheumatoid arthritis, unspecified; I10 Essential (primary) hypertension; J20.9 Acute bronchitis, unspecified; G89.29 Other chronic pain; F51.01 Primary insomnia; E78.2 Mixed hyperlipidemia; E66.9 Obesity, unspecified; Z96.643 Presence of artificial hip joint, bilateral; R62.7 Adult failure to thrive; Z88.5 Allergy status to narcotic agent; Z87.440 Personal history of urinary (tract) infections; Z87.01 Personal history of pneumonia (recurrent); Z82.49 Family history of ischemic heart disease and other diseases of the circulatory system; Z83.3 Family history of diabetes mellitus; Z80.8 Family history of malignant neoplasm of other organs or systems; Z68.24 Body mass index [BMI] 24.0-24.9, adult

== ENCOUNTER 2020-01-14 07:40 | Inpatient (IN) | payer OTHER ==
[~2020-01-14] VITALS: Ht 167.6 cm; Wt 79.2 kg
[2020-01-14 07:40] VITALS: BP 128/82
[2020-01-14 08:09] LABS: MEAN CELL VOLUME 92.1 fl (80.0-94.0); MEAN CORPUSCULAR HGB 30.2 pg (27.0-31.0); MEAN CORPUSCULAR HGB CONC 32.8 g/dl (33.0-37.0); MEAN PLATELET VOLUME 9.6 fl (9.6-12.3); PLATELET COUNT AUTOMATED 376 10*3/uL (130-400); RED BLOOD COUNT 4.67 10*6/uL (4.50-5.90); RED CELL DISTRI WIDTH 14.4 % (0-14.5); WHITE BLOOD COUNT 14.9 10*3/uL (4.8-10.8)
[2020-01-14 08:10] LABS: BILIRUBIN Negative (Negative); BLOOD Trace-Intact (Negative); CLARITY Clear (Clear); COLOR Yellow (Yellow); GLUCOSE Negative (Negative); KETONE 1+ (Negative); LEUKO ESTERASE Negative (Negative); NITRITE Negative (Negative); PH 5.5 (4.5-8.0)
[2020-01-14 08:19] LABS: ACT PARTIAL THROMBO TIME 26.4 SECONDS (20.0-32.1); INTERNATIONAL NORM RATIO 0.9 (2.0-3.5)
[2020-01-14 08:25] LABS: ALBUMIN 2.8 gm/dl (3.1-4.5); BUN 11 mg/dl (7-24); CHLORIDE 107 mmol/L (98-107); CREATININE 0.82 mg/dL (0.70-1.30); POTASSIUM 3.7 mmol/L (3.5-5.1); SGOT/AST 16 IU/L (3-35); SGPT/ALT 24 U/L (12-78); SODIUM 139 mmol/L (136-145); TOTAL PROTEIN 7.3 gm/dL (6.4-8.2)
[2020-01-14 08:26] LABS: ALKALINE PHOSPHATASE 68 U/L (45-117); PLATELET SUFFICIENCY NORMAL (NORMAL); TOTAL CELLS COUNTED 100 #CELLS
--- NOTE | 2020-01-14 08:28 | NUR ---
PATIENT DENIES WOUNDS A&OX4.
[2020-01-14 08:32] LABS: ARTERIAL BLOOD GAS PH 7.447 (7.35-7.45)
[2020-01-14 08:49] LABS: TROPONIN I < 0.015 ng/ml (<0.045)
[2020-01-14 08:59] LABS: BACTERIA TRACE; MUCOUS TRACE
[2020-01-14 09:12] VITALS: BP 144/73
[2020-01-14 16:19] VITALS: BP 131/85
--- NOTE | 2020-01-14 18:09 | NUR ---
REPORT GIVEN TO TELLO ROY AT THIS TIME. PATIENT TAKEN TO 4TH FLOOR AT THIS TIME.
[2020-01-14 18:12] VITALS: BP 131/85
--- NOTE | 2020-01-14 18:30 | NUR ---
A 64, admitted to , under the services of MILTON Ann DO with a diagnosis of PERSON UNDER SUSPICIAN FOR COVID. Chief complaint is COUGH/CONGESTION/SHORT OF BREATH. Patient arrived via stretcher from ER. Monitor applied. Initial assessment completed. Vital signs taken and recorded. MILTON ANN DO notified of admission to the unit. Orders received. See assessment for past medical history, medications and allergies. Patient and/or family oriented to unit. [address] visitation policy reviewed. Clothing/patient valuable form completed. LEN ALDANA
[2020-01-14 18:40] VITALS: BP 153/84
--- NOTE | 2020-01-14 19:13 | NUR ---
DR. SIDHU AND DR. LINO AWARE OF CONSULTS.
[2020-01-14] MEDS ORDERED: DALIRESP250 MCG PO (22:50)
[2020-01-14] MEDS ORDERED: COMBIVENT RESPIM4 GM INH (22:51)
--- NOTE | 2020-01-14 22:53 | NUR ---
UPDATED PATIENT'S MED ACCORDING TO PATIENT, HOWEVER HE STATED HE IS NOT SURE IF THE MEDS HE GAVE IS EVERYTHING HE TAKES. DAYLIGHT TO CALL PATIENT'S PHARMACY TOMORROW.
[2020-01-15] VITALS: BP 134/81
--- NOTE | 2020-01-15 00:04 | NUR ---
Patient resting quietly with no c/o discomfort. Respirations easy and regular. Vital signs stable. No overt distress. 4L NC. SPO2 @ 98%. CALL LIGHT IN REACH. WILL CONTINUE TO MONITOR. JACE WHITE
[2020-01-15 06:12] LABS: ALBUMIN 2.2 gm/dl (3.1-4.5); ALKALINE PHOSPHATASE 60 U/L (45-117); BUN 20 mg/dl (7-24); CHLORIDE 112 mmol/L (98-107); CHOLESTEROL 123 mg/dL (<200); FREE T4 1.45 ng/dl (0.76-1.46); HDL CHOLESTEROL 58 mg/dl (40-60); LDH 121 U/L (87-241); LDL CHOLESTEROL 52 mg/dL (9-159); POTASSIUM 3.7 mmol/L (3.5-5.1); SGOT/AST 15 IU/L (3-35); SGPT/ALT 22 U/L (12-78); SODIUM 139 mmol/L (136-145); TOTAL PROTEIN 6.3 gm/dL (6.4-8.2); TRIGLYCERIDES 67 mg/dl (<150); VLDL CHOLESTEROL 13 mg/dL (6-40)
[2020-01-15 06:14] LABS: HEMATOCRIT 38.3 % (42.0-52.0); MEAN CELL VOLUME 92.3 fl (80.0-94.0); MEAN CORPUSCULAR HGB 30.4 pg (27.0-31.0); MEAN CORPUSCULAR HGB CONC 32.9 g/dl (33.0-37.0); MEAN PLATELET VOLUME 9.8 fl (9.6-12.3); PLATELET COUNT AUTOMATED 382 10*3/uL (130-400); RED BLOOD COUNT 4.15 10*6/uL (4.50-5.90); RED CELL DISTRI WIDTH 14.3 % (0-14.5); WHITE BLOOD COUNT 11.4 10*3/uL (4.8-10.8)
[2020-01-15 06:17] LABS: THYROID STIM HORMONE (HS) 0.257 uIU/ml (0.358-4.75)
[2020-01-15 06:58] LABS: VITAMIN D, 25-HYDROXY 19.7 ng/mL (30-100)
[2020-01-15 07:33] LABS: PLATELET SUFFICIENCY NORMAL (NORMAL); TOTAL CELLS COUNTED 100 #CELLS
[2020-01-15 08:00] VITALS: BP 125/78
--- NOTE | 2020-01-15 09:00 | NUR ---
Environmental Engineer Scientist in to talk to patient. Patient states lives at home with family. There are no steps in the home. Physician: zeke Pharmacy: [facility] Home health services: none Patient's level of ADLs: INDEPENDENT Patient has working utilities: all working DME: cane,walker,nebulizer Follow-up physician's appointment after d/c: will be made by hospitalist nurse director upon discharge Does patient want to access PORTAL?: no Discharge plan discussed with patient, he states he lives at home with family, is independent in adls and ambulation, states will return home when discharged and denies any home needs, case management will follow. RYANN CAMARGO
[2020-01-15 12:00] VITALS: BP 125/87
[2020-01-15 16:00] VITALS: BP 120/68; BP 126/77
[2020-01-15 20:00] VITALS: BP 135/78
--- NOTE | 2020-01-15 20:00 | NUR ---
Patient resting quietly with no c/o discomfort. Respirations easy and regular. Vital signs stable. No overt distress. DAISY DESIR
[2020-01-16] VITALS: BP 130/70
--- NOTE | 2020-01-16 | NUR ---
Patient resting quietly with no c/o discomfort. Respirations easy and regular. Vital signs stable. No overt distress. DAISY DESIR
--- NOTE | 2020-01-16 04:54 | NUR ---
24 HR chart check completed.
[2020-01-16 06:45] LABS: HEMATOCRIT 37.4 % (42.0-52.0); MEAN CELL VOLUME 91.7 fl (80.0-94.0); MEAN CORPUSCULAR HGB 29.7 pg (27.0-31.0); MEAN CORPUSCULAR HGB CONC 32.4 g/dl (33.0-37.0); MEAN PLATELET VOLUME 9.6 fl (9.6-12.3); NUCLEATED RED BLOOD CELL 0.2 % (0.0-0.0); PLATELET COUNT AUTOMATED 394 10*3/uL (130-400); RED BLOOD COUNT 4.08 10*6/uL (4.50-5.90); RED CELL DISTRI WIDTH 14.4 % (0-14.5); WHITE BLOOD COUNT 11.7 10*3/uL (4.8-10.8)
[2020-01-16 07:06] LABS: ALBUMIN 2.4 gm/dl (3.1-4.5); ALKALINE PHOSPHATASE 55 U/L (45-117); BUN 22 mg/dl (7-24); CHLORIDE 112 mmol/L (98-107); CREATININE 0.66 mg/dL (0.70-1.30); POTASSIUM 3.5 mmol/L (3.5-5.1); SGOT/AST 17 IU/L (3-35); SGPT/ALT 27 U/L (12-78); SODIUM 140 mmol/L (136-145); TOTAL PROTEIN 6.2 gm/dL (6.4-8.2)
[2020-01-16 07:12] LABS: ATYPICAL LYMPHS 1 % (0-0); PLASMA CELL 1 % (0-0); PLATELET SUFFICIENCY NORMAL (NORMAL); POLYCHROMASIA SLIGHT; TOTAL CELLS COUNTED 100 #CELLS
[2020-01-16 07:13] LABS: BURR CELLS FEW; ROULEAUX SLIGHT; SCHISTOCYTES FEW
[2020-01-16 08:39] VITALS: BP 136/78
[2020-01-16 12:00] VITALS: BP 142/68
[2020-01-16 12:06] LABS: ACID FAST SPEC PROCESSING Concentration (.)
[2020-01-16 16:00] VITALS: BP 140/52
--- NOTE | 2020-01-16 17:42 | NUR ---
PATIENT STATED HE WAS FEELING MUCH BETTER TODAY, LESS SOB. PLEASANT, COOPERATIVE. NO COMPLAINTS
--- NOTE | 2020-01-16 19:05 | NUR ---
REPORT RECEIVED. PT LYING IN BED, NO COMPLAINTS. CALL LIGHT IN REACH
[2020-01-16 20:00] VITALS: BP 130/71
--- NOTE | 2020-01-16 21:54 | NUR ---
NORCO GIVEN PER ORDER FOR COMPLAINTS OF 8/10 PAIN IN BACK. WILL MONITOR
--- NOTE | 2020-01-16 22:50 | NUR ---
NORCO APPEARS EFFECTIVE, PT ASLEEP
[2020-01-17] VITALS: BP 127/88
--- NOTE | 2020-01-17 02:00 | NUR ---
PT LYING IN BED WITH EYES CLOSED. NO S/S OF DISTRESS NOTED. O2 INTACT
--- NOTE | 2020-01-17 07:00 | NUR ---
ARRIVED ON SHIFT, REPORT RECEIVED FROM OFFGOING NURSE, ASSUMED CARE OF PATIENT.
--- NOTE | 2020-01-17 07:53 | NUR ---
Shift chart check completed.
[2020-01-17 08:00] VITALS: BP 130/73
[2020-01-17 12:00] VITALS: BP 124/75
[2020-01-17 16:00] VITALS: BP 125/84
[2020-01-17 20:00] VITALS: BP 124/69
--- NOTE | 2020-01-17 21:00 | NUR ---
IV started left antecubital with #22 protective cath after 0 attempts. Site prepped with Chloroprep. Sterile dressing applied. Patient tolerated procedure well. ALANNA SUTTON
[2020-01-18] VITALS: BP 119/73
--- NOTE | 2020-01-18 04:00 | NUR ---
Patient resting quietly with no c/o discomfort. Respirations easy and regular. Vital signs stable. No overt distress. ALANNA SUTTON
--- NOTE | 2020-01-18 07:00 | NUR ---
ARRIVED ION SHIFT, REPORT RECEIVED FROM OFFGOING NURSE, ASSUMED CARE OF PATIENT.
--- NOTE | 2020-01-18 07:07 | NUR ---
Shift chart check completed.
[2020-01-18 07:38] LABS: HEMATOCRIT 38.8 % (42.0-52.0); MEAN CELL VOLUME 92.2 fl (80.0-94.0); MEAN CORPUSCULAR HGB 30.6 pg (27.0-31.0); MEAN CORPUSCULAR HGB CONC 33.2 g/dl (33.0-37.0); MEAN PLATELET VOLUME 9.2 fl (9.6-12.3); PLATELET COUNT AUTOMATED 421 10*3/uL (130-400); RED BLOOD COUNT 4.21 10*6/uL (4.50-5.90); RED CELL DISTRI WIDTH 14.2 % (0-14.5); WHITE BLOOD COUNT 11.7 10*3/uL (4.8-10.8)
[2020-01-18 07:55] LABS: ATYPICAL LYMPHS 1 % (0-0); BURR CELLS FEW; CREATININE 0.73 mg/dL (0.70-1.30); PLATELET SUFFICIENCY HIGH (NORMAL); POLYCHROMASIA SLIGHT; SCHISTOCYTES FEW; TOTAL CELLS COUNTED 100 #CELLS
[2020-01-18 07:56] LABS: ROULEAUX SLIGHT
[2020-01-18 08:00] VITALS: BP 113/76
--- NOTE | 2020-01-18 08:00 | NUR ---
ARRIVED ON SHIFT, INTRODUCED SELF TO PATIENT, BED IN LKOW POSITION WITH WHEEL LOCKS ENGAGED, SIDE RAILS UP X 2 FOR TURNING AND REPOSITIOMNING, CALL LIGHT WITHIN REACH, NO NEEDS VOICED AT THIS TIME.
--- NOTE | 2020-01-18 09:00 | NUR ---
patient will return home when discharged, patient will be checked for the need for home oxygen prior to discharge. case management will follow
--- NOTE | 2020-01-18 11:50 | NUR ---
PATIENT ASESSED FOR HOME O2 PER PHYSICIAN ORDER. AT REST ON 4 L/M NC SPO2 99% HR82 BP 140/86. AFTER 5 MINUTES ON ROOM AIR AT REST SPO2 96%. DURING AMBULATION SPO2 DECREASED TO 94% HR INCREASED TO 101. PATIENT LEFT ON ROOM AIR SPO2 96% AT REST. PATIENT'S NURSE NOTIFIED HE DID NOT QUALIFY FOR HOME O2.
[2020-01-18 12:00] VITALS: BP 138/80
[2020-01-18] MEDS ORDERED: AUGMENTIN 875875 MG PO (15:20)
--- NOTE | 2020-01-18 16:50 | NUR ---
Discharge instructions reviewed with patient/family. Patient receptive and verbalizes understanding. Follow-up care arranged. Written instructions given to patient/family, IV REMOVED, NON MONITERED, TAKEN OUT VIA W/C BY HOSPITAL PA. ANDREEA GROSS
== END 2020-01-18 16:50 | disposition home or self-care (01) | DRG 871 ==
LOC: ED 07:40 → EDHOLD 08:48 → 4E 08:48
PROVIDERS: Emergency Medicine; Internal Medicine; Social Worker Clinical; Student in an Organized Health Care Education/Training Program; ADMIT Internal Medicine; ATTEND Internal Medicine
DX: A41.9 Sepsis, unspecified organism (principal); J18.0 Bronchopneumonia, unspecified organism; J15.9 Unspecified bacterial pneumonia; E44.0 Moderate protein-calorie malnutrition; E46 Unspecified protein-calorie malnutrition; J44.0 Chronic obstructive pulmonary disease with (acute) lower respiratory infection; J45.51 Severe persistent asthma with (acute) exacerbation; J44.1 Chronic obstructive pulmonary disease with (acute) exacerbation; I10 Essential (primary) hypertension; Z20.828 Contact with and (suspected) exposure to other viral communicable diseases; Z96.643 Presence of artificial hip joint, bilateral; N40.0 Benign prostatic hyperplasia without lower urinary tract symptoms; E78.5 Hyperlipidemia, unspecified; Z68.27 Body mass index [BMI] 27.0-27.9, adult

== ENCOUNTER → 2020-03-08 | Outpatient (CLI) | payer OTHER ==
[~2020-03-08] MED LIST changes: +COMBIVENT RESPIM4 GM INH; +DALIRESP250 MCG PO
== END | disposition home or self-care (01) ==
LOC: LAB 11:08
PROVIDERS: ATTEND Internal Medicine Critical Care Medicine
DX: R05 Cough (principal)

== ENCOUNTER → 2020-07-05 | Outpatient (CLI) | payer OTHER | END | disposition home or self-care (01) | LOC: RESCLI 02:04 | PROVIDERS: ATTEND Emergency Medicine | DX: J44.9 Chronic obstructive pulmonary disease, unspecified (principal); M81.0 Age-related osteoporosis without current pathological fracture; I10 Essential (primary) hypertension; E78.5 Hyperlipidemia, unspecified; Z79.899 Other long term (current) drug therapy; Z98.890 Other specified postprocedural states; Z87.891 Personal history of nicotine dependence ==

== ENCOUNTER 2020-07-25 22:47 | Inpatient (IN) | payer OTHER ==
[~2020-07-25] VITALS: Ht 172.7 cm; Wt 78.1 kg
[2020-07-25 22:48] VITALS: BP 132/81
[2020-07-25 23:23] LABS: BASO # 0.1 10*3/uL (0.0-0.1); BASO % 0.4 % (0.0-1.0); EOS # 0.3 10*3/uL (0.0-0.4); EOS % 1.8 % (1.0-4.0); HEMATOCRIT 44.3 % (42.0-52.0); LYMPH # 0.5 10*3/uL (1.3-4.4); LYMPH % 3.5 % (27.0-41.0); MEAN CELL VOLUME 92.9 fl (80.0-94.0); MEAN CORPUSCULAR HGB 30.8 pg (27.0-31.0); MEAN CORPUSCULAR HGB CONC 33.2 g/dl (33.0-37.0); MEAN PLATELET VOLUME 9.2 fl (9.6-12.3); MONO # 1.2 10*3/uL (0.1-1.0); MONO % 7.9 % (3.0-9.0); NEUT # 12.6 10*3/uL (2.3-7.9); NEUT % 86.1 % (47.0-73.0); PLATELET COUNT AUTOMATED 280 10*3/uL (130-400); RED BLOOD COUNT 4.77 10*6/uL (4.50-5.90); RED CELL DISTRI WIDTH 14.2 % (0-14.5); WHITE BLOOD COUNT 14.7 10*3/uL (4.8-10.8)
[2020-07-25 23:41] LABS: ALBUMIN 3.3 gm/dl (3.1-4.5); ALKALINE PHOSPHATASE 69 U/L (45-117); BUN 14 mg/dl (7-24); CHLORIDE 101 mmol/L (98-107); POTASSIUM 4.2 mmol/L (3.5-5.1); SGOT/AST 17 IU/L (3-35); SGPT/ALT 25 U/L (12-78); SODIUM 131 mmol/L (136-145); TOTAL PROTEIN 7.2 gm/dL (6.4-8.2)
[2020-07-26 01:45] VITALS: BP 144/83
[2020-07-26 12:00] VITALS: BP 139/97
[2020-07-26 16:00] VITALS: BP 130/65
[2020-07-26 20:00] VITALS: BP 135/86
[2020-07-27] VITALS: BP 146/86
[2020-07-27 12:00] VITALS: BP 130/77
[2020-07-27 16:00] VITALS: BP 125/72
[2020-07-27 20:00] VITALS: BP 127/76
[2020-07-28] VITALS: BP 124/77
[2020-07-28 06:27] LABS: BASO % 0.1 % (0.0-1.0); HEMATOCRIT 39.3 % (42.0-52.0); LYMPH # 0.5 10*3/uL (1.3-4.4); LYMPH % 4.4 % (27.0-41.0); MEAN CELL VOLUME 92.5 fl (80.0-94.0); MEAN CORPUSCULAR HGB 30.8 pg (27.0-31.0); MEAN CORPUSCULAR HGB CONC 33.3 g/dl (33.0-37.0); MONO # 0.6 10*3/uL (0.1-1.0); MONO % 4.8 % (3.0-9.0); NEUT # 10.9 10*3/uL (2.3-7.9); PLATELET COUNT AUTOMATED 292 10*3/uL (130-400); RED BLOOD COUNT 4.25 10*6/uL (4.50-5.90); RED CELL DISTRI WIDTH 14.4 % (0-14.5); WHITE BLOOD COUNT 12.1 10*3/uL (4.8-10.8)
[2020-07-28 06:44] LABS: ALBUMIN 2.9 gm/dl (3.1-4.5); ALKALINE PHOSPHATASE 49 U/L (45-117); BUN 25 mg/dl (7-24); CHLORIDE 109 mmol/L (98-107); CREATININE 0.81 mg/dL (0.70-1.30); POTASSIUM 4.1 mmol/L (3.5-5.1); SGOT/AST 11 IU/L (3-35); SGPT/ALT 22 U/L (12-78); SODIUM 140 mmol/L (136-145); TOTAL PROTEIN 6.4 gm/dL (6.4-8.2)
[2020-07-28 08:00] VITALS: BP 141/77
[2020-07-28 12:00] VITALS: BP 123/85
[2020-07-28 16:00] VITALS: BP 122/83
[2020-07-28 20:00] VITALS: BP 137/82
[2020-07-29] VITALS: BP 107/72
[2020-07-29 06:59] LABS: BASO % 0.1 % (0.0-1.0); HEMATOCRIT 40.8 % (42.0-52.0); LYMPH # 0.5 10*3/uL (1.3-4.4); MEAN CELL VOLUME 93.2 fl (80.0-94.0); MEAN CORPUSCULAR HGB 30.6 pg (27.0-31.0); MEAN CORPUSCULAR HGB CONC 32.8 g/dl (33.0-37.0); MEAN PLATELET VOLUME 10.1 fl (9.6-12.3); MONO # 0.4 10*3/uL (0.1-1.0); MONO % 4.8 % (3.0-9.0); NEUT # 7.5 10*3/uL (2.3-7.9); NEUT % 87.8 % (47.0-73.0); PLATELET COUNT AUTOMATED 301 10*3/uL (130-400); RED BLOOD COUNT 4.38 10*6/uL (4.50-5.90); WHITE BLOOD COUNT 8.6 10*3/uL (4.8-10.8)
[2020-07-29 08:00] VITALS: BP 137/78
[2020-07-29 12:00] VITALS: BP 134/97
[2020-07-29 16:00] VITALS: BP 129/75
[2020-07-29 20:00] VITALS: BP 149/77
[2020-07-30 06:15] LABS: BASO % 0.1 % (0.0-1.0); LYMPH # 0.5 10*3/uL (1.3-4.4); LYMPH % 6.7 % (27.0-41.0); MEAN CELL VOLUME 90.9 fl (80.0-94.0); MEAN CORPUSCULAR HGB 30.5 pg (27.0-31.0); MEAN CORPUSCULAR HGB CONC 33.5 g/dl (33.0-37.0); MEAN PLATELET VOLUME 9.9 fl (9.6-12.3); MONO # 0.5 10*3/uL (0.1-1.0); MONO % 6.6 % (3.0-9.0); NEUT # 5.9 10*3/uL (2.3-7.9); NEUT % 84.6 % (47.0-73.0); PLATELET COUNT AUTOMATED 330 10*3/uL (130-400); RED CELL DISTRI WIDTH 13.6 % (0-14.5)
[2020-07-30 08:00] VITALS: BP 136/99
[2020-07-30 12:00] VITALS: BP 135/71
[2020-07-30 16:00] VITALS: BP 122/84
[2020-07-30 20:00] VITALS: BP 132/88
[2020-07-31] VITALS: BP 132/77
[2020-07-31 08:00] VITALS: BP 148/90
[2020-07-31 12:05] VITALS: BP 124/89
[2020-07-31] MEDS ORDERED: MEDROL DOSEPAK4 MG PO (15:21)
[2020-07-31] MEDS ORDERED: AUGMENTIN 875-875 MG PO (15:21)
[2020-07-31 16:18] VITALS: BP 127/74
== END 2020-07-31 16:42 | disposition home or self-care (01) | DRG 189 ==
LOC: ED 22:47 → EDHOLD 07-26 00:50 → 5E 07-26 00:50
PROVIDERS: Hospitalist; Internal Medicine Critical Care Medicine; ADMIT Internal Medicine; ATTEND Internal Medicine
DX: J96.20 Acute and chronic respiratory failure, unspecified whether with hypoxia or hypercapnia (principal); J44.1 Chronic obstructive pulmonary disease with (acute) exacerbation; E44.1 Mild protein-calorie malnutrition; J44.0 Chronic obstructive pulmonary disease with (acute) lower respiratory infection; J20.9 Acute bronchitis, unspecified; E66.9 Obesity, unspecified; M06.9 Rheumatoid arthritis, unspecified; E75.6 Lipid storage disorder, unspecified; E78.2 Mixed hyperlipidemia; I10 Essential (primary) hypertension; F51.04 Psychophysiologic insomnia; Z88.8 Allergy status to other drugs, medicaments and biological substances; Z68.26 Body mass index [BMI] 26.0-26.9, adult

== ENCOUNTER → 2020-08-16 | Outpatient (CLI) | payer OTHER ==
[2020-08-16 09:03] LABS: BASO % 0.3 % (0.0-1.0); EOS # 0.3 10*3/uL (0.0-0.4); EOS % 3.5 % (1.0-4.0); HEMATOCRIT 43.3 % (42.0-52.0); LYMPH # 1.2 10*3/uL (1.3-4.4); LYMPH % 12.6 % (27.0-41.0); MEAN CELL VOLUME 92.7 fl (80.0-94.0); MEAN CORPUSCULAR HGB 30.4 pg (27.0-31.0); MEAN CORPUSCULAR HGB CONC 32.8 g/dl (33.0-37.0); MEAN PLATELET VOLUME 9.3 fl (9.6-12.3); MONO # 0.8 10*3/uL (0.1-1.0); MONO % 8.7 % (3.0-9.0); NEUT % 74.5 % (47.0-73.0); PLATELET COUNT AUTOMATED 271 10*3/uL (130-400); RED BLOOD COUNT 4.67 10*6/uL (4.50-5.90); WHITE BLOOD COUNT 9.4 10*3/uL (4.8-10.8)
[2020-08-16 09:14] LABS: ACT PARTIAL THROMBO TIME 27.3 SECONDS (20.0-32.1); INTERNATIONAL NORM RATIO 0.9 (2.0-3.5)
== END | disposition home or self-care (01) ==
LOC: LAB 08:22
PROVIDERS: ATTEND Internal Medicine
DX: K06.8 Other specified disorders of gingiva and edentulous alveolar ridge (principal); D68.8 Other specified coagulation defects

== ENCOUNTER → 2020-10-25 | Outpatient (CLI) | payer OTHER ==
[~2020-10-25] MED LIST changes: +SILVADENE20 GM T
== END | disposition home or self-care (01) ==
LOC: CT 09:42
PROVIDERS: ATTEND Internal Medicine
DX: K44.9 Diaphragmatic hernia without obstruction or gangrene (principal); K80.20 Calculus of gallbladder without cholecystitis without obstruction; N20.0 Calculus of kidney; K57.30 Diverticulosis of large intestine without perforation or abscess without bleeding; K43.9 Ventral hernia without obstruction or gangrene

== ENCOUNTER 2020-12-10 20:54 | Emergency (ER) | payer OTHER ==
[~2020-12-10] VITALS: Ht 172.7 cm; Wt 76.2 kg
[~2020-12-10 20:54] MED LIST changes: -SILVADENE20 GM T
[2020-12-10 22:32] VITALS: BP 109/64
[2020-12-10] MEDS ORDERED: SILVADENE20 GM T (22:41)
== END 2020-12-10 23:32 | disposition home or self-care (01) ==
LOC: ED 20:54
DX: T25.222A Burn of second degree of left foot, initial encounter (principal); X14.1XXA Other contact with hot air and other hot gases, initial encounter; Y93.89 Activity, other specified; Y92.89 Other specified places as the place of occurrence of the external cause; Y99.8 Other external cause status

== ENCOUNTER → 2021-03-10 | Outpatient (CLI) | payer OTHER ==
[~2021-03-10] MED LIST changes: +SILVADENE20 GM T
[2021-03-10 09:16] LABS: BASO % 0.3 % (0.0-1.0); EOS # 0.3 10*3/uL (0.0-0.4); EOS % 2.1 % (1.0-4.0); HEMATOCRIT 44.1 % (42.0-52.0); LYMPH # 1.2 10*3/uL (1.3-4.4); LYMPH % 9.5 % (27.0-41.0); MEAN CELL VOLUME 93.8 fl (80.0-94.0); MEAN CORPUSCULAR HGB 30.4 pg (27.0-31.0); MEAN CORPUSCULAR HGB CONC 32.4 g/dl (33.0-37.0); MEAN PLATELET VOLUME 9.2 fl (9.6-12.3); MONO % 8.1 % (3.0-9.0); NEUT # 10.2 10*3/uL (2.3-7.9); NEUT % 79.6 % (47.0-73.0); PLATELET COUNT AUTOMATED 305 10*3/uL (130-400); RED CELL DISTRI WIDTH 14.6 % (0-14.5); WHITE BLOOD COUNT 12.8 10*3/uL (4.8-10.8)
[2021-03-10 09:37] LABS: CHLORIDE 108 mmol/L (98-107); POTASSIUM 4.1 mmol/L (3.5-5.1); SODIUM 138 mmol/L (136-145)
[2021-03-10 09:49] LABS: ALBUMIN 3.5 gm/dl (3.1-4.5); ALKALINE PHOSPHATASE 60 U/L (45-117); BUN 13 mg/dl (7-24); CHOLESTEROL 182 mg/dL (<200); CREATININE 0.94 mg/dL (0.70-1.30); FREE T4 1.37 ng/dl (0.76-1.46); LDL CHOLESTEROL 73 mg/dL (9-159); SGOT/AST 12 IU/L (3-35); SGPT/ALT 24 U/L (12-78); THYROID STIM HORMONE (HS) 0.676 uIU/ml (0.358-4.75); TOTAL PROTEIN 7.5 gm/dL (6.4-8.2); TRIGLYCERIDES 79 mg/dl (<150); URIC ACID 6.3 mg/dL (3.5-7.2)
[2021-03-10 10:05] LABS: VITAMIN D, 25-HYDROXY 13.4 ng/mL (30-100)
== END | disposition home or self-care (01) ==
LOC: LAB 08:40
PROVIDERS: ATTEND Internal Medicine
DX: M25.571 Pain in right ankle and joints of right foot (principal); D51.9 Vitamin B12 deficiency anemia, unspecified; E03.9 Hypothyroidism, unspecified; D52.9 Folate deficiency anemia, unspecified; Z13.0 Encounter for screening for diseases of the blood and blood-forming organs and certain disorders involving the immune mechanism; Z13.1 Encounter for screening for diabetes mellitus; Z13.21 Encounter for screening for nutritional disorder; Z13.220 Encounter for screening for lipoid disorders; Z13.228 Encounter for screening for other metabolic disorders; Z13.6 Encounter for screening for cardiovascular disorders; Z13.89 Encounter for screening for other disorder; M10.9 Gout, unspecified

== ENCOUNTER 2021-06-28 00:41 | Inpatient (IN) | payer OTHER ==
[2021-06-28] VITALS (9 sets, daily range): BP systolic 112–150; BP diastolic 72–90
[~2021-06-28] VITALS: Ht 172.7 cm; Wt 69.6 kg
[2021-06-28 01:04] LABS: BASO % 0.1 % (0.0-1.0); HEMATOCRIT 42.6 % (42.0-52.0); LYMPH # 1.1 10*3/uL (1.3-4.4); LYMPH % 10.3 % (27.0-41.0); MEAN CELL VOLUME 87.1 fl (80.0-94.0); MEAN CORPUSCULAR HGB CONC 33.3 g/dl (33.0-37.0); MONO # 1.1 10*3/uL (0.1-1.0); MONO % 10.8 % (3.0-9.0); NEUT # 8.2 10*3/uL (2.3-7.9); NEUT % 77.9 % (47.0-73.0); PLATELET COUNT AUTOMATED 382 10*3/uL (130-400); RED BLOOD COUNT 4.89 10*6/uL (4.50-5.90); RED CELL DISTRI WIDTH 13.9 % (0-14.5); WHITE BLOOD COUNT 10.5 10*3/uL (4.8-10.8)
[2021-06-28 01:15] LABS: ACT PARTIAL THROMBO TIME 25.5 SECONDS (20.0-32.1)
[2021-06-28 01:19] LABS: ALKALINE PHOSPHATASE 61 U/L (45-117); BUN 25 mg/dl (7-24); CHLORIDE 108 mmol/L (98-107); CREATININE 1.25 mg/dL (0.70-1.30); POTASSIUM 4.7 mmol/L (3.5-5.1); SGOT/AST 10 IU/L (3-35); SGPT/ALT 19 U/L (12-78); SODIUM 136 mmol/L (136-145); TOTAL PROTEIN 6.7 gm/dL (6.4-8.2)
[2021-06-28] MEDS ORDERED: CETIRIZINE HYDR10 MG PO (02:14)
[2021-06-29] VITALS: BP 118/67
[2021-06-29 05:52] LABS: ALKALINE PHOSPHATASE 55 U/L (45-117); BUN 27 mg/dl (7-24); CHLORIDE 108 mmol/L (98-107); CREATININE 0.87 mg/dL (0.70-1.30); POTASSIUM 4.5 mmol/L (3.5-5.1); SGOT/AST 6 IU/L (3-35); SGPT/ALT 17 U/L (12-78); SODIUM 138 mmol/L (136-145); TOTAL PROTEIN 5.9 gm/dL (6.4-8.2)
[2021-06-29 06:01] LABS: BASO % 0.1 % (0.0-1.0); HEMATOCRIT 42.2 % (42.0-52.0); LYMPH # 0.7 10*3/uL (1.3-4.4); LYMPH % 8.1 % (27.0-41.0); MEAN CELL VOLUME 87.6 fl (80.0-94.0); MEAN CORPUSCULAR HGB CONC 33.2 g/dl (33.0-37.0); MEAN PLATELET VOLUME 9.5 fl (9.6-12.3); MONO # 0.5 10*3/uL (0.1-1.0); NEUT # 7.1 10*3/uL (2.3-7.9); NEUT % 84.5 % (47.0-73.0); PLATELET COUNT AUTOMATED 377 10*3/uL (130-400); RED BLOOD COUNT 4.82 10*6/uL (4.50-5.90); RED CELL DISTRI WIDTH 13.7 % (0-14.5); WHITE BLOOD COUNT 8.4 10*3/uL (4.8-10.8)
[2021-06-29 08:00] VITALS: BP 154/89
[2021-06-29 12:00] VITALS: BP 116/79
[2021-06-29 16:00] VITALS: BP 129/68
[2021-06-29 20:00] VITALS: BP 132/80
[2021-06-30] VITALS: BP 134/78
[2021-06-30 05:51] LABS: ALKALINE PHOSPHATASE 52 U/L (45-117); BUN 28 mg/dl (7-24); CHLORIDE 108 mmol/L (98-107); CREATININE 0.91 mg/dL (0.70-1.30); POTASSIUM 4.1 mmol/L (3.5-5.1); SGOT/AST 6 IU/L (3-35); SGPT/ALT 18 U/L (12-78); SODIUM 139 mmol/L (136-145); TOTAL PROTEIN 5.7 gm/dL (6.4-8.2)
[2021-06-30 06:21] LABS: BASO % 0.2 % (0.0-1.0); HEMATOCRIT 41.7 % (42.0-52.0); LYMPH # 0.6 10*3/uL (1.3-4.4); LYMPH % 6.3 % (27.0-41.0); MEAN CELL VOLUME 87.2 fl (80.0-94.0); MEAN CORPUSCULAR HGB 29.1 pg (27.0-31.0); MEAN CORPUSCULAR HGB CONC 33.3 g/dl (33.0-37.0); MEAN PLATELET VOLUME 9.8 fl (9.6-12.3); MONO # 0.5 10*3/uL (0.1-1.0); NEUT # 8.4 10*3/uL (2.3-7.9); NEUT % 86.7 % (47.0-73.0); PLATELET COUNT AUTOMATED 392 10*3/uL (130-400); RED BLOOD COUNT 4.78 10*6/uL (4.50-5.90); RED CELL DISTRI WIDTH 13.8 % (0-14.5); WHITE BLOOD COUNT 9.7 10*3/uL (4.8-10.8)
[2021-06-30 08:00] VITALS: BP 122/71
[2021-06-30] MEDS ORDERED: MONTELUKAST SOD10 MG PO (09:49)
[2021-06-30 12:00] VITALS: BP 128/75
== END 2021-06-30 14:56 | disposition home or self-care (01) | DRG 189 ==
LOC: ED 00:41 → 4E 03:32 → EDHOLD 03:32 → 4E 03:50
PROVIDERS: Emergency Medicine; Internal Medicine Critical Care Medicine; ADMIT Internal Medicine; ATTEND Internal Medicine
DX: J96.21 Acute and chronic respiratory failure with hypoxia (principal); J45.901 Unspecified asthma with (acute) exacerbation; E44.1 Mild protein-calorie malnutrition; J43.2 Centrilobular emphysema; I10 Essential (primary) hypertension; Z88.8 Allergy status to other drugs, medicaments and biological substances; F51.01 Primary insomnia; F51.04 Psychophysiologic insomnia; E78.2 Mixed hyperlipidemia; J20.9 Acute bronchitis, unspecified; J30.9 Allergic rhinitis, unspecified; Z96.643 Presence of artificial hip joint, bilateral; Z68.23 Body mass index [BMI] 23.0-23.9, adult

== ENCOUNTER → 2021-12-18 | Outpatient (CLI) | payer OTHER ==
[~2021-12-18] MED LIST changes: +CETIRIZINE HYDR10 MG PO; +DOXYCYCLINE MO100 M1 PO
== END | disposition home or self-care (01) ==
LOC: CARD 11:30
PROVIDERS: ATTEND Internal Medicine
DX: I08.1 Rheumatic disorders of both mitral and tricuspid valves (principal)

== ENCOUNTER → 2022-01-17 | Outpatient (CLI) | payer OTHER | END | disposition home or self-care (01) | LOC: US 09:48 | PROVIDERS: ATTEND Internal Medicine | DX: I65.23 Occlusion and stenosis of bilateral carotid arteries (principal) ==

== ENCOUNTER → 2022-01-22 | Day surgery (SDC) | payer OTHER ==
[~2022-01-22] VITALS: Ht 172.7 cm; Wt 70.3 kg
[2022-01-22 08:15] VITALS: BP 123/80
[2022-01-22 09:32] VITALS: BP 118/75
[2022-01-22 09:47] VITALS: BP 127/77
[2022-01-22 09:55] VITALS: BP 118/75
== END | disposition home or self-care (01) ==
LOC: SDC 01-18 13:15
PROVIDERS: ATTEND Surgery
DX: Z12.11 Encounter for screening for malignant neoplasm of colon (principal); D12.3 Benign neoplasm of transverse colon; D12.8 Benign neoplasm of rectum; I10 Essential (primary) hypertension; J44.9 Chronic obstructive pulmonary disease, unspecified; E78.5 Hyperlipidemia, unspecified; M81.0 Age-related osteoporosis without current pathological fracture; Z96.643 Presence of artificial hip joint, bilateral; Z87.891 Personal history of nicotine dependence; Z79.899 Other long term (current) drug therapy; Z98.890 Other specified postprocedural states

== ENCOUNTER → 2022-02-21 | Outpatient (CLI) | payer OTHER ==
[2022-02-21 09:10] LABS: CREATININE 0.94 mg/dL (0.70-1.30)
== END | disposition home or self-care (01) ==
LOC: LAB 00:13
PROVIDERS: ATTEND Internal Medicine
DX: Z01.812 Encounter for preprocedural laboratory examination (principal)

== ENCOUNTER → 2022-02-22 | Outpatient (CLI) | payer OTHER | END | disposition home or self-care (01) | LOC: CT 00:23 | PROVIDERS: ATTEND Internal Medicine | DX: I65.23 Occlusion and stenosis of bilateral carotid arteries (principal) ==

== ENCOUNTER → 2022-04-16 | Outpatient (CLI) | payer OTHER ==
[2022-04-16 09:25] LABS: BASO # 0.1 10*3/uL (0.0-0.1); BASO % 1.1 % (0.0-1.0); EOS # 0.4 10*3/uL (0.0-0.4); EOS % 5.1 % (1.0-4.0); HEMATOCRIT 40.9 % (42.0-52.0); LYMPH # 1.4 10*3/uL (1.3-4.4); LYMPH % 16.5 % (27.0-41.0); MEAN CORPUSCULAR HGB 28.1 pg (27.0-31.0); MEAN CORPUSCULAR HGB CONC 32.3 g/dl (33.0-37.0); MEAN PLATELET VOLUME 8.9 fl (9.6-12.3); MONO % 11.2 % (3.0-9.0); NEUT # 5.6 10*3/uL (2.3-7.9); NEUT % 65.9 % (47.0-73.0); PLATELET COUNT AUTOMATED 359 10*3/uL (130-400); RED CELL DISTRI WIDTH 14.6 % (0-14.5); WHITE BLOOD COUNT 8.5 10*3/uL (4.8-10.8)
[2022-04-16 09:53] LABS: ALKALINE PHOSPHATASE 83 U/L (46-116); BUN 16 mg/dl (9-23); CHLORIDE 103 mmol/L (98-107); CHOLESTEROL 165 mg/dL (<200); FREE T4 1.48 ng/dl (0.89-1.76); LDL CHOLESTEROL 85 mg/dL (9-159); POTASSIUM 4.2 mmol/L (3.4-5.1); THYROID STIM HORMONE (HS) 1.008 uIU/ml (0.550-4.780); TOTAL PROTEIN 7.2 gm/dL (6.0-8.0); TRIGLYCERIDES 66 mg/dl (<150)
[2022-04-16 10:00] LABS: SGPT/ALT < 7 U/L (10-49)
[2022-04-16 11:08] LABS: VITAMIN D, 25-HYDROXY 42.5 ng/mL (30-100)
== END | disposition home or self-care (01) ==
LOC: LAB 08:49
PROVIDERS: ATTEND Internal Medicine
DX: I10 Essential (primary) hypertension (principal); E55.9 Vitamin D deficiency, unspecified; Z12.5 Encounter for screening for malignant neoplasm of prostate; Z13.0 Encounter for screening for diseases of the blood and blood-forming organs and certain disorders involving the immune mechanism; Z13.820 Encounter for screening for osteoporosis; Z13.89 Encounter for screening for other disorder; Z13.1 Encounter for screening for diabetes mellitus; Z13.21 Encounter for screening for nutritional disorder; Z13.220 Encounter for screening for lipoid disorders; Z13.228 Encounter for screening for other metabolic disorders; Z13.29 Encounter for screening for other suspected endocrine disorder; Z13.6 Encounter for screening for cardiovascular disorders; Z13.9 Encounter for screening, unspecified

== ENCOUNTER → 2022-05-28 | Outpatient (CLI) | payer OTHER ==
[2022-05-28 10:43] LABS: BILIRUBIN Negative (Negative); BLOOD Negative (Negative); CLARITY Clear (Clear); COLOR Yellow (Yellow); GLUCOSE Negative (Negative); KETONE Negative (Negative); LEUKO ESTERASE Negative (Negative); NITRITE Negative (Negative); PH 5.5 (4.5-8.0); UROBILINOGEN 0.2 E.U./dl (0.0-1.0)
[2022-05-28 11:35] LABS: BACTERIA TRACE; EPITHELIAL CELLS 0-2; MUCOUS 1+; RBC 0-2 rbc/hpf (0-2); WBC 0-2 wbc/hpf (0-5)
[2022-06-02 18:06] LABS: % FREE PSA 23.6 % (.); FREE PSA 1.47 ng/mL (.)
== END | disposition home or self-care (01) ==
LOC: LAB 09:58
PROVIDERS: ATTEND Nurse Practitioner Family
DX: R97.20 Elevated prostate specific antigen [PSA] (principal); R30.0 Dysuria

== ENCOUNTER → 2022-07-25 | Outpatient (CLI) | payer OTHER | END | disposition home or self-care (01) | LOC: LAB 11:23 | PROVIDERS: ATTEND Nurse Practitioner Family | DX: R97.20 Elevated prostate specific antigen [PSA] (principal) ==

== ENCOUNTER → 2022-09-12 | Day surgery (SDC) | payer OTHER ==
[~2022-09-12] VITALS: Ht 172.7 cm; Wt 72.6 kg
[2022-09-12 13:25] VITALS: BP 161/57
[2022-09-12 15:04] VITALS: BP 119/81
[2022-09-12 15:19] VITALS: BP 137/80
[2022-09-12 15:34] VITALS: BP 128/87
== END | disposition home or self-care (01) ==
LOC: SDC 09-10 13:15
PROVIDERS: ATTEND Ophthalmology
DX: H25.811 Combined forms of age-related cataract, right eye (principal); I10 Essential (primary) hypertension; J44.9 Chronic obstructive pulmonary disease, unspecified; Z87.891 Personal history of nicotine dependence; Z79.82 Long term (current) use of aspirin; Z79.899 Other long term (current) drug therapy

== ENCOUNTER → 2022-10-10 | Day surgery (SDC) | payer OTHER ==
[~2022-10-10] VITALS: Ht 177.8 cm; Wt 86.2 kg
[~2022-10-10] MED LIST changes: +AEROECLIPSE II1 EACH MC; +ARNUITY ELLIP200 MCG INH; +ASPIRIN ADULT L81 M1 PO; +FLOMAX0.4 MG PO; +OMEPRAZOLE MAGN20 MG PO
[2022-10-10 11:06] VITALS: BP 135/77
[2022-10-10 12:19] VITALS: BP 133/78
[2022-10-10 12:33] VITALS: BP 126/80
[2022-10-10 12:45] VITALS: BP 126/82
== END | disposition home or self-care (01) ==
LOC: SDC 10-05 12:30
PROVIDERS: ATTEND Ophthalmology
DX: H25.812 Combined forms of age-related cataract, left eye (principal); I10 Essential (primary) hypertension; J44.9 Chronic obstructive pulmonary disease, unspecified; E78.00 Pure hypercholesterolemia, unspecified; Z87.891 Personal history of nicotine dependence; Z79.899 Other long term (current) drug therapy

== ENCOUNTER → 2022-12-25 | Outpatient (CLI) | payer OTHER | END | disposition home or self-care (01) | LOC: RAD 09:13 | PROVIDERS: ATTEND Internal Medicine | DX: J98.4 Other disorders of lung (principal) ==

== ENCOUNTER → 2023-01-15 | Outpatient (CLI) | payer OTHER ==
[~2023-01-15] MED LIST changes: +HYDROCODONE-AC1 EAC1 PO; +METOPROLOL SUCC25 M2 PO; +VIBRA-TAB100 MG PO
== END | disposition home or self-care (01) ==
LOC: LAB 09:08
PROVIDERS: ATTEND Urology
DX: R97.20 Elevated prostate specific antigen [PSA] (principal)

== ENCOUNTER → 2023-06-03 | Outpatient (CLI) | payer OTHER ==
[2023-06-03 08:43] LABS: BASO # 0.1 10*3/uL (0.0-0.1); BASO % 0.8 % (0.0-1.0); EOS # 0.4 10*3/uL (0.0-0.4); EOS % 6.2 % (1.0-4.0); HEMATOCRIT 34.2 % (42.0-52.0); LYMPH # 1.5 10*3/uL (1.3-4.4); LYMPH % 21.1 % (27.0-41.0); MEAN CELL VOLUME 73.7 fl (80.0-94.0); MEAN CORPUSCULAR HGB 21.8 pg (27.0-31.0); MEAN CORPUSCULAR HGB CONC 29.5 g/dl (33.0-37.0); MEAN PLATELET VOLUME 8.4 fl (9.6-12.3); MONO # 0.8 10*3/uL (0.1-1.0); MONO % 11.6 % (3.0-9.0); NEUT # 4.3 10*3/uL (2.3-7.9); NEUT % 60.2 % (47.0-73.0); PLATELET COUNT AUTOMATED 393 10*3/uL (130-400); RED BLOOD COUNT 4.64 10*6/uL (4.50-5.90); RED CELL DISTRI WIDTH 18.7 % (0-14.5); WHITE BLOOD COUNT 7.1 10*3/uL (4.8-10.8)
[2023-06-03 09:07] LABS: VITAMIN D, 25-HYDROXY 30.6 ng/mL (30-100)
[2023-06-03 09:28] LABS: ALKALINE PHOSPHATASE 62 U/L (46-116); BUN 16 mg/dl (9-23); CHLORIDE 107 mmol/L (98-107); CHOLESTEROL 169 mg/dL (<200); FREE T4 1.27 ng/dl (0.89-1.76); LDL CHOLESTEROL 97 mg/dL (9-159); POTASSIUM 4.1 mmol/L (3.4-5.1); SGPT/ALT 14 U/L (5-49); TOTAL PROTEIN 6.9 gm/dL (6.0-8.0); TRIGLYCERIDES 48 mg/dl (<150)
== END | disposition home or self-care (01) ==
LOC: LAB 08:26
PROVIDERS: ATTEND Internal Medicine
DX: I10 Essential (primary) hypertension (principal); E55.9 Vitamin D deficiency, unspecified; Z13.0 Encounter for screening for diseases of the blood and blood-forming organs and certain disorders involving the immune mechanism; Z13.1 Encounter for screening for diabetes mellitus; Z13.21 Encounter for screening for nutritional disorder; Z13.228 Encounter for screening for other metabolic disorders; Z13.89 Encounter for screening for other disorder

== ENCOUNTER → 2023-06-11 | Outpatient (CLI) | payer OTHER | END | disposition home or self-care (01) | LOC: LAB 08:39 | PROVIDERS: ATTEND Internal Medicine | DX: R79.89 Other specified abnormal findings of blood chemistry (principal) ==

== ENCOUNTER → 2023-06-12 | Outpatient (CLI) | payer OTHER | END | disposition home or self-care (01) | LOC: RAD 10:41 | PROVIDERS: ATTEND Internal Medicine | DX: J43.9 Emphysema, unspecified (principal); K44.9 Diaphragmatic hernia without obstruction or gangrene; M19.012 Primary osteoarthritis, left shoulder; M19.011 Primary osteoarthritis, right shoulder; I70.0 Atherosclerosis of aorta ==

== ENCOUNTER → 2023-08-07 | Outpatient (CLI) | payer OTHER | END | disposition home or self-care (01) | LOC: LAB 08:06 | PROVIDERS: ATTEND Urology | DX: R97.20 Elevated prostate specific antigen [PSA] (principal) ==

== ENCOUNTER 2023-09-01 13:10 | Emergency (ER) | payer OTHER ==
[~2023-09-01] VITALS: Ht 172.7 cm; Wt 72.6 kg
[2023-09-01 13:37] VITALS: BP 134/76
[2023-09-01 14:09] LABS: BASO # 0.1 10*3/uL (0.0-0.1); BASO % 0.8 % (0.0-1.0); EOS # 0.2 10*3/uL (0.0-0.4); EOS % 3.3 % (1.0-4.0); HEMATOCRIT 32.8 % (42.0-52.0); LYMPH # 0.8 10*3/uL (1.3-4.4); LYMPH % 11.2 % (27.0-41.0); MEAN CELL VOLUME 70.2 fl (80.0-94.0); MEAN CORPUSCULAR HGB 20.8 pg (27.0-31.0); MEAN CORPUSCULAR HGB CONC 29.6 g/dl (33.0-37.0); MONO # 1.1 10*3/uL (0.1-1.0); MONO % 14.6 % (3.0-9.0); NEUT # 5.1 10*3/uL (2.3-7.9); NEUT % 69.6 % (47.0-73.0); PLATELET COUNT AUTOMATED 372 10*3/uL (130-400); RED BLOOD COUNT 4.67 10*6/uL (4.50-5.90); RED CELL DISTRI WIDTH 19.9 % (0-14.5); WHITE BLOOD COUNT 7.3 10*3/uL (4.8-10.8)
[2023-09-01 14:28] LABS: BUN 9 mg/dl (9-23); CHLORIDE 102 mmol/L (98-107); POTASSIUM 3.9 mmol/L (3.4-5.1)
[2023-09-01] MEDS ORDERED: OMNICEF300 MG PO (15:44)
[2023-09-01] MEDS ORDERED: ZITHROMAX250 MG PO (15:44)
[2023-09-01] MEDS ORDERED: PREDNISONE50 MG PO (15:44)
== END 2023-09-01 15:00 | disposition home or self-care (01) ==
LOC: ED 13:10
PROVIDERS: Internal Medicine
DX: J44.1 Chronic obstructive pulmonary disease with (acute) exacerbation (principal); I10 Essential (primary) hypertension; J45.909 Unspecified asthma, uncomplicated; Z98.890 Other specified postprocedural states

== ENCOUNTER → 2023-10-03 | Outpatient (CLI) | payer OTHER ==
[~2023-10-03] MED LIST changes: +OMNICEF300 MG PO; +ZITHROMAX250 MG PO
== END | disposition home or self-care (01) ==
LOC: LAB 07:21
PROVIDERS: ATTEND Urology
DX: R97.20 Elevated prostate specific antigen [PSA] (principal)

== ENCOUNTER → 2024-02-18 | Outpatient (CLI) | payer OTHER | END | disposition home or self-care (01) | LOC: LAB 07:12 | PROVIDERS: ATTEND Urology | DX: N40.1 Benign prostatic hyperplasia with lower urinary tract symptoms (principal) ==

== ENCOUNTER → 2024-04-16 | Outpatient (CLI) | payer OTHER ==
[2024-04-16 08:52] LABS: BASO # 0.1 10*3/uL (0.0-0.1); BASO % 0.9 % (0.0-1.0); EOS # 0.7 10*3/uL (0.0-0.4); EOS % 8.8 % (1.0-4.0); HEMATOCRIT 35.6 % (42.0-52.0); MEAN CELL VOLUME 72.2 fl (80.0-94.0); MEAN CORPUSCULAR HGB 21.3 pg (27.0-31.0); MEAN CORPUSCULAR HGB CONC 29.5 g/dl (33.0-37.0); MEAN PLATELET VOLUME 8.8 fl (9.6-12.3); MONO # 0.9 10*3/uL (0.1-1.0); NEUT # 4.3 10*3/uL (2.3-7.9); NEUT % 56.2 % (47.0-73.0); PLATELET COUNT AUTOMATED 485 10*3/uL (130-400); RED BLOOD COUNT 4.93 10*6/uL (4.50-5.90); RED CELL DISTRI WIDTH 20.5 % (0-14.5); WHITE BLOOD COUNT 7.6 10*3/uL (4.8-10.8)
[2024-04-16 09:25] LABS: ALKALINE PHOSPHATASE 79 U/L (46-116); BUN 14 mg/dl (9-23); CHLORIDE 105 mmol/L (98-107); CHOLESTEROL 174 mg/dL (<200); FREE T4 1.38 ng/dl (0.89-1.76); LDL CHOLESTEROL 98 mg/dL (9-159); POTASSIUM 3.8 mmol/L (3.4-5.1); SGPT/ALT 11 U/L (5-49); TOTAL PROTEIN 7.2 gm/dL (6.0-8.0); TRIGLYCERIDES 72 mg/dl (<150)
[2024-04-16 09:27] LABS: VITAMIN D, 25-HYDROXY 33.3 ng/mL (30-100)
== END | disposition home or self-care (01) ==
LOC: LAB 07:59
PROVIDERS: ATTEND Internal Medicine
DX: I10 Essential (primary) hypertension (principal); D50.8 Other iron deficiency anemias; R53.83 Other fatigue; E53.9 Vitamin B deficiency, unspecified; E55.9 Vitamin D deficiency, unspecified

== ENCOUNTER → 2024-07-20 | Outpatient (CLI) | payer OTHER | END | disposition home or self-care (01) | LOC: LAB 12:33 | PROVIDERS: ATTEND Surgery | DX: R97.20 Elevated prostate specific antigen [PSA] (principal) ==

== ENCOUNTER → 2024-08-20 | Day surgery (SDC) | payer OTHER ==
[~2024-08-20] VITALS: Ht 172.7 cm; Wt 72.6 kg
[~2024-08-20] MED LIST changes: +Albuterol Sulf/Ipratropium 3 ML VIAL NEB ONE; +Albuterol Sulfate 2.5 MG/0.5 ML VIAL NEB ONE; +Lactated Ringer's Solution 500 ML IV ONE; +Lidocaine Hydrochloride 4% 5 ML AMP NEB ONE; +Lidocaine Hydrochloride 4% 5 ML AMP ONE; +Lidocaine Hydrochloride 5 ML VIAL IV ONE; +PROPOFOL 200 MG/20 ML VIAL IV ONE
[2024-08-20 09:33] VITALS: BP 131/83
[2024-08-20 10:14] VITALS: BP 123/76
[2024-08-20 10:29] VITALS: BP 132/75
[2024-08-20 10:43] VITALS: BP 130/85
[2024-08-21 08:07] LABS: ACID FAST SPEC PROCESSING Concentration (.)
== END | disposition home or self-care (01) ==
LOC: SDC 08:48
PROVIDERS: ATTEND Internal Medicine Critical Care Medicine
DX: R05.8 Other specified cough (principal); I10 Essential (primary) hypertension; E78.00 Pure hypercholesterolemia, unspecified; J44.1 Chronic obstructive pulmonary disease with (acute) exacerbation; Z96.643 Presence of artificial hip joint, bilateral; Z87.891 Personal history of nicotine dependence; Z96.619 Presence of unspecified artificial shoulder joint; Z98.890 Other specified postprocedural states; Z79.82 Long term (current) use of aspirin; Z79.899 Other long term (current) drug therapy; Z82.49 Family history of ischemic heart disease and other diseases of the circulatory system

== ENCOUNTER → 2024-10-13 | Outpatient (CLI) | payer OTHER ==
[~2024-10-13] MED LIST changes: -Albuterol Sulf/Ipratropium 3 ML VIAL NEB ONE; -Albuterol Sulfate 2.5 MG/0.5 ML VIAL NEB ONE; -Lactated Ringer's Solution 500 ML IV ONE; -Lidocaine Hydrochloride 4% 5 ML AMP NEB ONE; -Lidocaine Hydrochloride 4% 5 ML AMP ONE; -Lidocaine Hydrochloride 5 ML VIAL IV ONE; -PROPOFOL 200 MG/20 ML VIAL IV ONE
[2024-10-13 08:07] LABS: BASO # 0.1 10*3/uL (0.0-0.1); BASO % 1.1 % (0.0-1.0); EOS # 0.8 10*3/uL (0.0-0.4); EOS % 11.0 % (1.0-4.0); MEAN CELL VOLUME 74.1 fl (80.0-94.0); MEAN CORPUSCULAR HGB 22.6 pg (27.0-31.0); MEAN PLATELET VOLUME 8.6 fl (9.6-12.3); MONO # 0.7 10*3/uL (0.1-1.0); MONO % 9.7 % (3.0-9.0); NEUT # 3.5 10*3/uL (2.3-7.9); NEUT % 48.9 % (47.0-73.0); NUCLEATED RED BLOOD CELL 0.0 % (0.0-0.0); NUCLEATED RED BLOOD CELL 0.0 10*3/uL (0.0-0.0); PLATELET COUNT AUTOMATED 461 10*3/uL (130-400); RED CELL DISTRI WIDTH 21.2 % (0-14.5)
== END | disposition home or self-care (01) ==
LOC: LAB 07:46
PROVIDERS: ATTEND Internal Medicine Critical Care Medicine
DX: J30.9 Allergic rhinitis, unspecified (principal); J44.9 Chronic obstructive pulmonary disease, unspecified; J45.40 Moderate persistent asthma, uncomplicated; J30.89 Other allergic rhinitis; Z87.891 Personal history of nicotine dependence

== ENCOUNTER → 2025-01-04 | Outpatient (CLI) | payer OTHER | END | disposition home or self-care (01) | LOC: LAB 08:06 | PROVIDERS: ATTEND Urology | DX: R97.20 Elevated prostate specific antigen [PSA] (principal) ==

== ENCOUNTER → 2025-04-06 | Outpatient (CLI) | payer OTHER | END | disposition home or self-care (01) | LOC: LAB 07:21 → RAD 08:00 | PROVIDERS: ATTEND Urology | DX: M81.0 Age-related osteoporosis without current pathological fracture (principal); R97.20 Elevated prostate specific antigen [PSA] ==